=== PATIENT | female | born 1990 | race Caucasian/White ===

== ENCOUNTER 2018-07-24 16:46 | Outpatient (REF) | payer MEDICARE, MEDICAID, SELFPAY ==
--- NOTE | 2018-07-24 09:45 | PAPFT_PTH ---
PATIENT: Ailyn Gaffney LOC: [facility] U#:[id number] AGE/SX: 28/F ROOM: RE07/24/[address]: LILI Hicks : 1990 BED: DIS: 07/24/2018 SPEC #: [id number] RECD: 07/27/18 12:26 STATUS: LEO REQ #: [id number] HEIDI: 07/24/18 09:[address]: Joaquina Nelson DEPT: [facility] Cytology RECD BY: Stacey De La Cruz ENTERED: 07/27/18 12:26 SP TYPE: PAPFT OTHR DR: Sahara Brown MD Tissues: 1 - CX/ENDOCX FOR PAP SMEARS Procedures: PAP THIN PREP/UVM Screening HPV DNA PROBE Comments: [id number] (CHLAMYDIA/GC)
[2018-07-28 14:00] LABS: Chlamydia Result Negative; GC Result Negative; Specimen Description SEE COMMENTS
== END 2018-07-24 17:06 ==
LOC: LBN 16:46
PROVIDERS: PCP Family Medicine; Visit Provider Nurse Practitioner Family
DX: Z11.3 Encounter for screening for infections with a predominantly sexual mode of transmission (principal); Z12.4 Encounter for screening for malignant neoplasm of cervix; Z11.51 Encounter for screening for human papillomavirus (HPV)
CPT/HCPCS: 87491; 87591; 88142; 87624

== ENCOUNTER 2018-08-05 01:00 | Outpatient (CLI) | payer MEDICARE, MEDICAID, SELFPAY ==
[2018-08-05 10:27] LABS: Anion Gap 7.3 mmol/L (3-11); BUN 24 mg/dL (7-18); CO2 28.7 mmol/L (21.0-32.0); Calcium 8.7 mg/dL (8.5-10.1); Chloride 105 mmol/L (98-107); Cholesterol 242 mg/dL (50-200); Glucose 96 mg/dL (70-100); HDL Cholesterol 81 mg/dL (40-60); LDL CHOLESTEROL 134 mg/dL (<100); Potassium 4.8 mmol/L (3.5-5.1); Sodium 141 mmol/L (136-145); TSH 6.21 uIU/mL (0.358-3.74); Triglyceride 94 mg/dL (30-150)
[2018-08-05 10:28] LABS: HCG Quant, Pregnancy < 1 mIU/mL (1-3)
[2018-08-05 10:45] LABS: FREE T4 0.92 ng/dL (0.76-1.46)
[2018-08-06 10:41] LABS: Hepatitis C Ab w Rflx HCV PCR Negative (NEGAT)
[2018-08-06 10:51] LABS: HIV-1/2 Ag & Ab Screen Negative (NEGAT)
[2018-08-06 11:36] LABS: Syphilis Serology (RPR) Negative (Negative)
== END 2018-08-05 01:20 ==
PROVIDERS: PCP Family Medicine; Visit Provider Nurse Practitioner Family
DX: E78.5 Hyperlipidemia, unspecified (principal); Z11.3 Encounter for screening for infections with a predominantly sexual mode of transmission; Z32.01 Encounter for pregnancy test, result positive; E03.9 Hypothyroidism, unspecified; E11.9 Type 2 diabetes mellitus without complications; Z34.90 Encounter for supervision of normal pregnancy, unspecified, unspecified trimester; Z11.4 Encounter for screening for human immunodeficiency virus [HIV]; Z11.59 Encounter for screening for other viral diseases
CPT/HCPCS: 36415; 80048; 80061; 83721; 86803; 87389; 84439; 84443; 84702; 86592

== ENCOUNTER 2018-10-22 10:27 | Outpatient (CLI) | payer MEDICARE, MEDICAID, SELFPAY ==
[2018-10-22 13:02] LABS: TSH 4.26 uIU/mL (0.358-3.74)
== END 2018-10-22 10:47 ==
PROVIDERS: Nurse Practitioner Family; PCP Family Medicine; Visit Provider Family Medicine
DX: E03.9 Hypothyroidism, unspecified (principal)
CPT/HCPCS: 36415; 84439; 84443

== ENCOUNTER 2019-03-24 10:33 | Outpatient (CLI) | payer MEDICARE, MEDICAID, SELFPAY ==
[2019-03-24 13:11] LABS: ALT 19 U/L (14-59); AST 20 U/L (15-37); Albumin 3.9 g/dL (3.4-5.0); Alkaline Phosphatase 49 U/L (46-116); Anion Gap 9.1 mmol/L (3-11); BUN 17 mg/dL (7-18); Bilirubin, Total 0.4 mg/dL (0.2-1.0); CO2 26.9 mmol/L (21.0-32.0); CREATININE 0.68 mg/dL (0.55-1.02); Calcium 9.3 mg/dL (8.5-10.1); Chloride 103 mmol/L (98-107); Glucose 93 mg/dL (70-100); Sodium 139 mmol/L (136-145); TSH 2.54 uIU/mL (0.36-3.74); Total Protein 7.2 g/dL (6.4-8.2)
== END 2019-03-24 10:53 ==
PROVIDERS: PCP Family Medicine; Visit Provider Family Medicine
DX: E03.9 Hypothyroidism, unspecified (principal); K59.00 Constipation, unspecified
CPT/HCPCS: 36415; 80053; 84132; 84443

== ENCOUNTER 2019-03-24 16:11 | Outpatient (CLI) | payer MEDICARE, MEDICAID, SELFPAY ==
[2019-03-24 17:12] LABS: Potassium 4.3 mmol/L (3.5-5.1)
== END 2019-03-24 16:31 ==
PROVIDERS: PCP Family Medicine; Visit Provider Family Medicine
DX: E87.5 Hyperkalemia (principal)
CPT/HCPCS: 84132

== ENCOUNTER 2020-05-07 21:24 | Emergency (ER) | payer MEDICARE, MEDICAID, SELFPAY ==
[2020-05-07 21:31] VITALS: BP 160/94; PULSE 116; RESP 20; TEMP 36.4; O2SAT 94
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
[2020-05-07] MEDS: Ondansetron O.D.T. 4 MG TABEF PO (21:57)
[2020-05-07] MEDS: Azithromycin 250 MG TAB 1000 MG PO (23:41)
[2020-05-07] MEDS: cefTRIAXone 250 MG VIAL IM (23:41)
[2020-05-07] MEDS: metroNIDAZOLE 500 MG TAB 2000 MG PO (23:42)
[2020-05-07 23:48] VITALS: BP 124/76; PULSE 103; RESP 16; O2SAT 96
--- NOTE | 2020-05-07 23:52 | NUR.NOTE ---
Nursing Note: SENT REFERAL TO CM TO FOLLOW UP AND SEE IF SHE NEEDS ANY OTHER SUPPORT 05/07/20
== END 2020-05-08 00:20 | disposition home or self-care (01) ==
PROVIDERS: Emergency Provider Student in an Organized Health Care Education/Training Program; PCP Family Medicine
DX: T76.21XA Adult sexual abuse, suspected, initial encounter (principal)
CPT/HCPCS: 96372; 99285; 99284; J0696

== ENCOUNTER 2020-05-08 17:49 | Emergency (ER) | payer MEDICARE, MEDICAID, SELFPAY ==
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
[2020-05-08] MEDS: Ondansetron O.D.T. 4 MG TABEF PO (18:08)
--- NOTE | 2020-05-08 19:01 | NUR.NOTE ---
checked on pt, offered and given water
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
== END 2020-05-08 20:50 | disposition home or self-care (01) ==
PROVIDERS: Emergency Provider Physician Assistant; PCP Family Medicine
DX: T74.21XA Adult sexual abuse, confirmed, initial encounter (principal); F41.1 Generalized anxiety disorder
CPT/HCPCS: 99285; 99283

== ENCOUNTER 2020-11-12 19:27 | Emergency (ER) | payer MEDICAID, SELFPAY ==
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
[2020-11-12] MEDS: LORazepam 1 MG TAB 2 MG PO (19:50)
[2020-11-12] MEDS: Haloperidol 5 MG TAB PO (19:50)
--- NOTE | 2020-11-12 20:26 | PDOC.CMSAFED ---
- If Service Date Differs Date of service: 11/12/20 Time of Service: 20:26 Care Management Safety Plan Status: Voluntary Chief Complaint: Ailyn is a 30 year old female with a history of anxiety, depression, anorexia nervosa, and BPD. She is brought to the ED by a friend. Upon her arrival in the ED, she reportedly was screaming and banging her head on the wall while making suicidal statements. CM will respond to ED to assess patient after patient has been medically cleared and assessed by screener. If screener deems patient meets criteria for psychiatric stabilization CM will facilitate interdepartmental huddle with [facility] screener for safety planning considerations and meet with patient to review [facility] policy and safety plan, establish individual wishes for treatment and maintain patient rights. In the interim; please note safety plan below to guide patient care while awaiting further assessment in the ED. SAFETY PLAN: 1. Will remain on suicide precautions and in paper clothes. 2. Will remain in room under direct supervision of one-on-one staff at all times provided by [employer], NELSY, DIRECTOR OF SAFETY AND SECURITY interior surface insulation worker. 3. May have paper cups, plates, finger foods as well as a cardboard spoon with which to eat meals. 4. Follow [facility] Management of the Admitted Behavioral Health Patient policy. 5. Comfort bath system only. 6. No personal belongings 7. No visitors. 8. Activities: None at this time. 8. No telephone privileges at this time. 9. Due to VOLUNTARY status, if patient wishes to leave [facility], staff will contact the [facility] Watch Parts Inspector ([phone]) and On-Call Engineering Programmer ([phone]) as soon as possible. In the event of elopement, notify [facility] Police ([phone]). If deemed appropriate for inpatient psychiatric care, safety plan will be established with patient, and care team, to adhere to patient goals, identify restrictions based on behavioral status, address nutrition, and determine allowed personal belongings, tools for hygiene and personal care. As well plan will determine level of activity including ambulation, level of supervision, visitors, and determine privileges based on level of acuity, behaviors and level of engagement by patient.
[2020-11-12 20:34] LABS: Abs Immature Grans 0.01 10^3/uL (0.0-0.06); Absolute Basophil Count 0.04 10^3/uL (0.0-0.2); Absolute Eosinophil Count 0.02 10^3/uL (0.0-0.7); Absolute Lymphocyte Count 2.18 10^3/uL (1.2-3.4); Absolute Monocyte Count 0.36 10^3/uL (0.1-0.8); Absolute Neutrophil Count 6.08 10^3/uL (1.2-6.7); Basophils % 0.5; Eosinophils % 0.2; HCT 46.1 % (36.0-46.0); HGB 15.8 g/dL (11.2-15.7); Immature Grans % 0.1; Lymphocytes % 25.1; MCH 32.9 pg (27.0-33.0); MCHC 34.3 % (32.0-36.0); MPV 9.4 fL (8.0-11.0); Monocytes % 4.1; Nucleated RBC 0 %; Platelet Count 227 10^3/uL (130-400); RDW 11.8 % (11.7-14.6); RDW-SD 41.4 fL; WBC 8.69 10^3/uL (4.4-10.8)
[2020-11-12 20:46] LABS: Bilirubin Negative (Negative); Blood Negative (Negative); Clarity Clear (Clear); Glucose Negative (Negative); Ketones Negative (Negative); Leukocyte Esterase Negative (Negative); Nitrite Negative (Negative); Specific Gravity 1.015 (1.005-1.025); Urobilinogen 0.2 EU/dL (Up TO 0.2)
[2020-11-12 20:54] LABS: *AMPHETAMINES SCREEN URINE Negative (Negative); *BARBITURATES SCREEN URINE Negative (Negative); *BENZODIAZEPINES SCREEN URINE Negative (Negative); Cannabinoids THC Negative (Negative); Cocaine Screen,Urine Negative (Negative); METHADONE URINE SCREEN Negative (Negative); OPIATES URINE SCREEN Negative (Negative)
[2020-11-12 20:55] LABS: Tricyclic Antidepressants Negative (Negative)
[2020-11-12 20:56] LABS: ALT 38 U/L (14-59); AST 35 U/L (15-37); Albumin 4.2 g/dL (3.4-5.0); Alkaline Phosphatase 91 U/L (46-116); Anion Gap 9.9 mmol/L (3-11); BUN 16 mg/dL (7-18); Bilirubin, Total 0.2 mg/dL (0.2-1.0); CO2 28.1 mmol/L (21.0-32.0); CREATININE 0.9 mg/dL (0.55-1.02); Calcium 8.8 mg/dL (8.5-10.1); Chloride 108 mmol/L (98-107); ETHANOL BLOOD 246.6 mg/dL (<3); Glucose 108 mg/dL (74-106); Potassium 4.3 mmol/L (3.5-5.1); Sodium 146 mmol/L (136-145); TSH 14.31 uIU/mL (0.36-3.74)
[2020-11-12 21:04] LABS: Salicylate < 2.8 mg/dL (<2.8)
[2020-11-12 21:14] LABS: Acetaminophen < 2 ug/mL (10-30)
[2020-11-13 01:11] LABS: FREE T4 1.09 ng/dL (0.76-1.46)
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
== END 2020-11-13 06:39 | disposition home or self-care (01) ==
PROVIDERS: Registered Nurse Emergency; Emergency Provider Student in an Organized Health Care Education/Training Program; PCP Family Medicine
DX: F41.8 Other specified anxiety disorders (principal); F10.120 Alcohol abuse with intoxication, uncomplicated; Y90.8 Blood alcohol level of 240 mg/100 ml or more; R45.851 Suicidal ideations; R94.6 Abnormal results of thyroid function studies
CPT/HCPCS: 36415; 80053; 80307; 81025; 99285; 80320; 80329; 81003; 84439; 84443; 85025; 99284

== ENCOUNTER 2021-04-20 19:36 | Inpatient (IN) | payer MEDICARE, MEDICAID, SELFPAY ==
[2021-04-20] VITALS (22 sets, daily range): BP systolic 82–155; BP diastolic 42–99; PULSE 68–115; RESP 13–20; TEMP 36.4; O2SAT 92–97
--- NOTE | 2021-04-20 19:40 | W.ED.GENAD ---
Discharge Plan Disposition Patient Disposition: [facility] INPATIENT Condition: Fair Discharge Details Clinical Impression: Alcohol withdrawal, Major depression, Deliberate self-cutting Primary Care Provider: Unknown,Unknown ED Provider: Janice Vanegas Home Meds and New Rx's Prescriptions: No Action levothyroxine 75 mcg capsule 75 mcg PO DAILY Qty: 90 RF: 3 norgestimate-ethinyl estradiol 0.18/0.215/0.25 mg-35 mcg (28) tablet 1 tab PO DAILY Qty: 84 RF: 4 norgestimate-ethinyl estradiol 0.18/0.215/0.25 mg-35 mcg (28) tablet 1 tab PO DAILY Qty: 28 RF: 2 valacyclovir 1 gram tablet 1,000 mg PO TID PRNRF: 0 sertraline [Zoloft] 100 mg tablet 125 mg PO DAILY RF: 0 Medical Decision Making <Facundo Riggs MD - Last Filed: 04/20/21 22:28> 31-year-old female intoxicated, self harming behaviors with a razor knife cutting her left forearm at home and told EMS she wanted to kill herself. They had to take the razor away from her she was combative and resistant during transfer required from a state police escort. She arrives anxious, combative, intoxicated with superficial lacerations to the volar surface of her left upper extremity. The wound was cleansed and dressed and does not require suture repair. Screening medical examination performed including laboratory analysis and patient given Haldol and Ativan due to agitation, intoxication, self-injurious behavior and noncompliance with staff. Screening labs obtained with CBC of 7, hematocrit 40, platelets 178. She is intoxicated with an alcohol level of 371, chemistries otherwise reassuring. As patient is intoxicated, had self-harm behavior with claims of wanting to harm her self, she will require observation until clinically sober. She has medical records noting previous episodes were once sober she no longer had mood disruption. Will sign the patient out to Dr. Prater pending further observation and management. <Janice Vanegas DO - Last Filed: 04/21/21 13:44> 0800 --Case endorsed to follow-up with mental health once they evaluate patient this morning. Patient is medically cleared and now sober. 0830 --mental health evaluated patient at bedside and she is cleared for discharge to home. Mental health will try to contact grandparents to confirm that they feel comfortable taking patient home. 1100 --[facility] w/ [facility] discussed with patient's grandparents who do not feel comfortable with her going home. They state pt has been depressed and suicidal for quite some time, and has been drinking more alcohol than usual and they are concerned about her welfare and feel that she needs inpatient psychiatric treatment. [place] discussed this with patient over the phone and pt agrees that she needs placement for her depression and suicidal thoughts. Patient is now voluntary and will seek inpatient psychiatric hospitalization. 1200 --patient appears tremulous, anxious, tachycardic. She states she does drink 4 times weekly and this has been an increase in frequency and amount. Concern for possible alcohol withdrawal. Discussed with hospitalist who accepts patient for admission. She will require CPSO at bedside. Will admit to the floor for treatment for alcohol withdrawal while seeking inpatient psychiatric hospitalization. Will order Ativan IV as needed, banana bag. Medical Records Medical records reviewed: Yes I reviewed the patient's medical records. Lab Data Lab results reviewed: Yes I reviewed the patient's lab results. Labs: Laboratory Tests Range/Units 04/20/21 04/20/21 04/20/21 20:35 20:35 20:35 WBC (4.4-10.8) 10^3/uL 7.30 RBC (3.93-5.22) 10^6/uL 4.38 Hgb (11.2-15.7) g/dL 14.0 Hct (36.0-46.0) % 40.6 MCV (80-95) fL 92.7 MCH (27.0-33.0) pg 32.0 MCHC (32.0-36.0) % 34.5 RDW (11.7-14.6) % 12.8 Plt Count (130-400) 10^3/uL 178 MPV (8.0-11.0) fL 9.0 Immature Gran % 0.4 Neutrophils % 56.7 Lymphocytes % 36.4 Monocytes % 5.1 Eosinophils % 1.0 Basophils % 0.4 Nucleated RBC % % 0 Absolute Neutrophils (1.2-6.7) 10^3/uL 4.14 Absolute Lymphocytes (1.2-3.4) 10^3/uL 2.66 Absolute Monocytes (0.1-0.8) 10^3/uL 0.37 Absolute Eosinophils (0.0-0.7) 10^3/uL 0.07 Absolute Basophils (0.0-0.2) 10^3/uL 0.03 Sodium (136-145) mmol/L 144 Potassium (3.5-5.1) mmol/L 3.5 Chloride (98-107) mmol/L 105 Carbon Dioxide (21.0-32.0) mmol/L 29.2 Anion Gap (3-11) mmol/L 9.8 BUN (7-18) mg/dL 17 Creatinine (0.55-1.02) mg/dL 0.7 Estimated GFR/1.73 m2 (mL/min/1.73m2) >= 60.00 Glucose (74-106) mg/dL 87 Calcium (8.5-10.1) mg/dL 8.2 L Total Bilirubin (0.2-1.0) mg/dL 0.2 AST (15-37) U/L 33 ALT (14-59) U/L 26 Alkaline Phosphatase (46-116) U/L 77 Total Protein (6.4-8.2) g/dL 7.7 Albumin (3.4-5.0) g/dL 3.8 TSH (0.36-3.74) uIU/mL 8.59 H Free T4 (0.76-1.46) ng/dL 0.97 Salicylates (<2.8) mg/dL < 2.8 Acetaminophen (10-30) ug/mL < 2 Ethyl Alcohol (<3) mg/dL 371.8 HPI <Facundo Riggs MD - Last Filed: 04/20/21 22:28> General Mode of arrival: ambulatory. Date/Time Provider Initiated Documentation: 04/20/21 20:13. Limitations to Documentation: no limitations. Information obtained by: patient. History of Present Illness 31 year old F presents to the emergency department with the chief complaint of Intoxicated, threatening to kill herself, cut left forearm, described as moderate, and is localized to the left and upper extremity. Patient reports no radiation. and it has been constant. Patient did receive the following treatments prior to arrival, none Related Data Home Medications Medication Instructions Recorded Confirmed levothyroxine 75 mcg capsule 75 mcg PO DAILY #90 cap 06/14/20 04/21/21 norgestimate-ethinyl estradiol 1 tab PO DAILY #84 tab 08/15/20 11/12/20 0.18 mg/0.215mg/0.25mg-35 mcg(28)tablet norgestimate-ethinyl estradiol 1 tab PO DAILY #28 tab 02/02/21 04/21/21 0.18 mg/0.215mg/0.25mg-35 mcg(28)tablet sertraline [Zoloft] 125 mg PO DAILY 04/21/21 04/21/21 valacyclovir 1,000 mg PO TID PRN 04/21/21 04/21/21 Previous Rx's Medication Instructions Recorded levothyroxine 75 mcg capsule 75 mcg PO DAILY #90 cap 06/14/20 norgestimate-ethinyl estradiol 1 tab PO DAILY #84 tab 08/15/20 0.18 mg/0.215mg/0.25mg-35 mcg(28)tablet norgestimate-ethinyl estradiol 1 tab PO DAILY #28 tab 02/02/21 0.18 mg/0.215mg/0.25mg-35 mcg(28)tablet Allergies Allergy/AdvReac Type Severity Reaction Status Date / Time No Known Allergies Allergy Unverified 05/26/20 10:48 General RUDDY: 2 Review of Systems <Facundo Riggs MD - Last Filed: 04/20/21 22:28> Narrative: Unable to obtain due to intoxication PFSH <Facundo Riggs MD - Last Filed: 04/20/21 22:28> Medical History Anorexia nervosa (10/16/12) [facility] Borderline personality disorder (11/17/12) Carpal tunnel syndrome, bilateral Eating disorder Generalized anxiety disorder Hyperlipidemia Hypothyroidism (01/08/13) Major depressive disorder Medication overdose at age 21--partly accidental, partly intentional Vitamin D deficiency Family History Mother Alcohol abuse Substance abuse Depression Father No problems noted. Sister No problems noted. Sister No problems noted. Brother No problems noted. Maternal Grandfather Heart disease Hypertension Diabetes Maternal Grandmother Hypertension Hyperlipidemia Social History Smoking/Tobacco Use Status: Never Second Hand Exposure: Yes Smoking risk assessment performed?: Yes Alcohol Intake: current Alcohol Intake frequency: 3 or more drinks per day Alcohol type: hard liquor Drug use: Never Substance use type: does not use Details: pt denies tobacco or substance abuse. States she drinks daily but denies withdrawal symptoms if she doesnt drink. Is intoxicated upon arrival, poor historian. Caregiver/Support person: No Household members: family Housing: apartment Communication Needs: None Do you need help understanding health information?: Rarely Pets and animals: Yes Sexually active: No Do you think of yourself as: straight/heterosexual Current gender identity: female What is your relationship status?: never How often do you talk on the phone with friends or family?: once per week How often do you get together with friends or relatives?: decline to answer How often do you attend pentecostal or synagogue services?: decline to answer Do you belong to any clubs or organized social groups?: no Panel score (0-1 are the most socially isolated patients): 0 What type of physical activity do you participate in: weight lifting Duration: 60-90 minutes/day Frequency: 5-6 times per week Niru/Congregation: None Special niru needs: No Seatbelt use: always Helmet use: Yes Helmet use: always Drive intox or ride w/intox pole truck driver: No Do you feel safe at home: Yes Do you feel safe in your relationship?: Yes Female Reproductive History Menstrual Age of Menarche: 14 History History 0 Para Hx # Term Pregnancies Multiple births Hx # Pregnancies Ectopic pregnancies AB induced Hx Number of Living Children AB spontaneous Exam <Facundo Riggs MD - Last Filed: 04/20/21 22:28> Narrative Exam Narrative: GEN: awake, alert, oriented 3. Pleasant, well groomed, interactive. HEAD: Normocephalic, atraumatic ENT: Mucous membranes moist, oropharynx unremarkable, External ear exam unremarkable EYES: PERRL, EOMI NECK: Full ROM, no THIERNO, no menigismus CHEST/RESP: Nontender, clear to auscultation bilateral, no wheeze/rhonchi/rales CARDIOVASCULAR: RRR, no murmur, rub kalyani. 2+ Rad pulse bilateral ABDOMEN: Soft, nontender, no mass. +Bowel sounds EXT: Full ROM, no edema, left volar forearm superficial lacerations that do not penetrate through the dermis. Neuro: Grossly normal neurologic exam, conversant, interactive. Psych: Speech fluent, thoughts congruent, affect normal Sign Out <Facundo Riggs MD - Last Filed: 04/20/21 22:28> Sign Out Data: Sign Out Comment: Intoxicated with self harming behavior, observe and re-evaluate once sober. S/P Ativan and Haldol Last updated by Facundo Riggs MD at 04/20/21 22:30 Sign Out Comment: No issues overnight. Awake and awaiting mental health eval this morning. Last updated by Raul Prater MD at 04/21/21 08:03
[2021-04-20] MEDS: LORazepam 2 MG/ML VIAL IVP (20:43)
[2021-04-20] MEDS: Normal Saline 1,000 ML 1000 ML IV (20:44)
[2021-04-20] MEDS: Haloperidol 5 MG/ML VIAL 4 MG IM/IV (20:44)
[2021-04-20 20:49] LABS: Abs Immature Grans 0.03 10^3/uL (0.0-0.06); Absolute Basophil Count 0.03 10^3/uL (0.0-0.2); Absolute Eosinophil Count 0.07 10^3/uL (0.0-0.7); Absolute Lymphocyte Count 2.66 10^3/uL (1.2-3.4); Absolute Monocyte Count 0.37 10^3/uL (0.1-0.8); Absolute Neutrophil Count 4.14 10^3/uL (1.2-6.7); Basophils % 0.4; HCT 40.6 % (36.0-46.0); Immature Grans % 0.4; Lymphocytes % 36.4; MCHC 34.5 % (32.0-36.0); MCV 92.7 fL (80-95); Monocytes % 5.1; Neutrophils % 56.7; Nucleated RBC 0 %; Platelet Count 178 10^3/uL (130-400); RBC 4.38 10^6/uL (3.93-5.22); RDW 12.8 % (11.7-14.6)
[2021-04-20 21:10] LABS: Salicylate < 2.8 mg/dL (<2.8)
[2021-04-20 21:12] LABS: ALT 26 U/L (14-59); AST 33 U/L (15-37); Albumin 3.8 g/dL (3.4-5.0); Alkaline Phosphatase 77 U/L (46-116); Anion Gap 9.8 mmol/L (3-11); BUN 17 mg/dL (7-18); Bilirubin, Total 0.2 mg/dL (0.2-1.0); CO2 29.2 mmol/L (21.0-32.0); CREATININE 0.7 mg/dL (0.55-1.02); Calcium 8.2 mg/dL (8.5-10.1); Chloride 105 mmol/L (98-107); Glucose 87 mg/dL (74-106); Potassium 3.5 mmol/L (3.5-5.1); Sodium 144 mmol/L (136-145); TSH (W/Ref FT4) 8.59 uIU/mL (0.36-3.74); Total Protein 7.7 g/dL (6.4-8.2)
[2021-04-20 21:17] LABS: Acetaminophen < 2 ug/mL (10-30)
[2021-04-20 21:18] LABS: ETHANOL BLOOD 371.8 mg/dL (<3)
[2021-04-20 21:34] LABS: FREE T4 0.97 ng/dL (0.76-1.46)
--- NOTE | 2021-04-20 23:57 | NUR.NOTE ---
Nursing Note: Patient appears to be trying to wake up. Has opened her eyes, raised her head, but has now put her head back on the pillow. Appears to have gone back to sleep.
[2021-04-21] VITALS (117 sets, daily range): BP systolic 85–150; BP diastolic 48–101; PULSE 49–129; RESP 9–32; TEMP 36.8–37.6; O2SAT 94–98
--- NOTE | 2021-04-21 08:10 | NUR.NOTE ---
Nursing Note: 04/21/21- Pt talking with mental health via tablet.
--- NOTE | 2021-04-21 09:48 | PDOC.MHCN_ITS ---
Date of service: 04/21/21 Time of Service: 08:00 Mental Health Crisis Note Presenting Issue How did you arrive at the ED and why did you come: Client presented to ED via police due to intoxication as well as self-harm. Client is reported to have slit her wrist with a razor blade. Client's grandparents who she resides with called 911 after this incident. Per client's grandfather, client has made numerous suicidal statements and has also been drinking a lot more as well. Precipitating Factors Client denied SI/HI during this assessment Disposition BEHAVIOR: Client presented as engaging and cooperative but manipulative and impulsive as well. Client presented as not forthcoming to this proposal writer. Client also presented with fair thought process but poor insight and judgment. EYE CONTACT: Client maintained good eye contact throughout this assessment MOOD: Client presented with withdrawn and depressed mood AFFECT: Client affect was congruent with her mood APPETITE: Client reported a decrease in appetite. SLEEP(trouble falling/staying asleep: Client reported difficulty falling asleep and stated she has sleeps an average of 4 hours per night Plan Client is currently on voluntary and awaiting placement at [facility] for in-patient psychiatric treatment. This proposal writer was unable to safety plan with client and her grandparents and they stated they don't feel they can keep her safe till she goes for treatment. Client will be reassessed daily by [facility] till she is placed or her presentation changes to allow for an appropriate safety plan so she can return to the community. Client will need to be assessed if she decides to discharge before placement or an appropriate safety plan is made. Referrals will be sent to [facility], , [facility] and [facility]. There are currently no beds available at this time. Signature Clinician's Name/Title: Liyah Camp / Emergency Services Clinician, [facility]
[2021-04-21 10:25] LABS: Bilirubin Negative (Negative); Blood Negative (Negative); Clarity Clear (Clear); Glucose Negative (Negative); Ketones Negative (Negative); Leukocyte Esterase Negative (Negative); Nitrite Negative (Negative); Specific Gravity 1.025 (1.005-1.025); Urobilinogen 0.2 EU/dL (Up TO 0.2)
[2021-04-21 10:36] LABS: *AMPHETAMINES SCREEN URINE Negative (Negative); *BARBITURATES SCREEN URINE Negative (Negative); *BENZODIAZEPINES SCREEN URINE Negative (Negative); Cannabinoids THC Negative (Negative); Cocaine Screen,Urine Negative (Negative); METHADONE URINE SCREEN Negative (Negative); OPIATES URINE SCREEN Negative (Negative)
[2021-04-21 10:40] LABS: Tricyclic Antidepressants Negative (Negative)
[2021-04-21] MEDS: LORazepam 1 MG TAB PO (10:58)
--- NOTE | 2021-04-21 11:53 | NUR.NOTE ---
Nursing Note: 04/21/21 1151 Pt received call from mental health.
[2021-04-21] MEDS: Normal Saline 1,000 ML 1000 ML IV (12:37)
[2021-04-21] MEDS: LORazepam 2 MG/ML VIAL 0.5 MG IVP ×2 (12:48→20:58)
[2021-04-21] MEDS: MAGNESIUM SULFATE 8.12 MEQ, MULTIVITAMIN 10 ML, THIAMINE 100 MG, FOLIC ACID 1 MG in Nor... 168.867 MG IV (13:17)
[2021-04-21 13:34] LABS: Source Nasal/Nares
[2021-04-21] MEDS: PHENobarbital 100 MG in Normal Saline 50 ML IVPB (14:57)
--- NOTE | 2021-04-21 16:10 | HPE_ITS ---
Date of service: 04/21/21 Time of Service: 16:10 Assessment and Plan Assessment and plan (1) Alcohol withdrawal: Start date: 04/21/21 Start time: 16:55 Status: Acute Assessment and plan: Having tremors, drinks daily, ethyl alcohol is 371.8 yesterday, last drink per patient was yesterday, phenobarb initiated Patient also with major depression and self harm, made voluntary by therefore she has a CPSO once medically cleared, will need to be reevlauated for bed placement Qualifiers: Complication of substance-induced condition: with unspecified complication Qualified Code(s): F10.239 - Alcohol dependence with withdrawal, unspecified (2) Depression: Start date: 04/21/21 Start time: 16:57 Status: Chronic Assessment and plan: as above Qualifiers: Depression Type: major depressive disorder Major depression recurrence: recurrent Active/Remission status: currently active Major depression episode severity: severe Psychotic features: without psychotic features Qualified Code(s): F33.2 - Major depressive disorder, recurrent severe without psychotic features (3) Alcohol intoxication: Start date: 04/21/21 Start time: 16:58 Status: Acute Assessment and plan: as above Qualifiers: Complication of substance-induced condition: with unspecified complication Qualified Code(s): F10.929 - Alcohol use, unspecified with intoxication, unspecified (4) Deliberate self-cutting: Start date: 04/21/21 Start time: 16:58 Status: Acute Assessment and plan: Left wrist with superficial cut due to razor from self harm during intoxication discussed with Dr. Carr History of Present Illness History of Present Illness Chief Complaint: Major depression, cutting, etoh w/d Narrative: 31 y.o female with PMH of depression, alcohol intoxication, presented to the ED for self harm she was combative and in restraints initially in the ED. while intoxicated. She had a razor blade and cut her left wrist, superficial lacerations were bandaged. TSH was 8.59 with t free 4 0.97, alcohol level 371.8. She was evaluated by and made voluntary. She was asked to be admitted to co for further management. Upon admission, she started to have w/d sx from alcohol. She is being placed on phenobarbatol scale, telemetry, CPSO. She is having slight tremors. She did tell me she does not want to go to a MH facility. At this time however she is not medically cleared. Once medically cleared she will need to be reevaluated by . Review of Systems All systems reviewed & are unremarkable except as noted in HPI and below PFSH Medical History Anorexia nervosa (10/16/12) [facility] [place] [facility] Borderline personality disorder (11/17/12) Carpal tunnel syndrome, bilateral Eating disorder Generalized anxiety disorder Hyperlipidemia Hypothyroidism (01/08/13) Major depressive disorder Medication overdose at age 21--partly accidental, partly intentional Vitamin D deficiency Family History Mother Alcohol abuse Substance abuse Depression Father No problems noted. Sister No problems noted. Sister No problems noted. Brother No problems noted. Maternal Grandfather Heart disease Hypertension Diabetes Maternal Grandmother Hypertension Hyperlipidemia Social History Smoking/Tobacco Use Status: Never Second Hand Exposure: Yes Smoking risk assessment performed?: Yes Alcohol Intake: current Alcohol Intake frequency: 3 or more drinks per day Alcohol type: hard liquor Drug use: Never Substance use type: does not use Details: pt denies tobacco or substance abuse. States she drinks daily but denies withdrawal symptoms if she doesnt drink. Is intoxicated upon arrival, poor historian. Caregiver/Support person: No Household members: family Housing: apartment Communication Needs: None Do you need help understanding health information?: Rarely Pets and animals: Yes Sexually active: No Do you think of yourself as: straight/heterosexual Current gender identity: female What is your relationship status?: never How often do you talk on the phone with friends or family?: once per week How often do you get together with friends or relatives?: decline to answer How often do you attend synagogue or temple services?: decline to answer Do you belong to any clubs or organized social groups?: no Panel score (0-1 are the most socially isolated patients): 0 What type of physical activity do you participate in: weight lifting Duration: 60-90 minutes/day Frequency: 5-6 times per week Niru/Mormonism: None Special niru needs: No Seatbelt use: always Helmet use: Yes Helmet use: always Drive intox or ride w/intox utility worker driver: No Do you feel safe at home: Yes Do you feel safe in your relationship?: Yes Female Reproductive History Menstrual Age of Menarche: 14 History History 0 Para Hx # Term Pregnancies Multiple births Hx # Pregnancies Ectopic pregnancies AB induced Hx Number of Living Children AB spontaneous Meds Allergies and Home Medications Allergies Allergy/AdvReac Type Severity Reaction Status Date / Time No Known Allergies Allergy Unverified 05/26/20 10:48 Home Medications Medication Instructions Recorded Confirmed Type levothyroxine 75 mcg capsule 75 mcg PO DAILY #90 cap 06/14/20 04/21/21 Rx norgestimate-ethinyl estradiol 1 tab PO DAILY #84 tab 08/15/20 11/12/20 Rx 0.18 mg/0.215mg/0.25mg-35 mcg(28)tablet norgestimate-ethinyl estradiol 1 tab PO DAILY #28 tab 02/02/21 04/21/21 Rx 0.18 mg/0.215mg/0.25mg-35 mcg(28)tablet sertraline [Zoloft] 125 mg PO DAILY 04/21/21 04/21/21 History valacyclovir 1,000 mg PO TID PRN 04/21/21 04/21/21 History Exam Const General: cooperative, comfortable and disheveled Nutritional Appearance: average body habitus Orientation: alert, awake and oriented x3 Eyes Eyelids: eyelids normal Pupils: PERRL EOM: EOM intact bilaterally Neck Neck: normal visual inspection and no JVD Lymphatic: no lymphadenopathy noted Resp Effort & Inspection: normal respiratory effort Auscultation: clear to auscultation bilaterally Cardio Jugular venous pressure: no JVD Rhythm: regular rhythm Heart Sounds: S1 normal GI Auscultation: normal bowel sounds General: No CVA tenderness and deferred Skin General skin exam: scars (to bilateral arms) Wounds: wound noted (left wrist) Neuro General: patient alert, patient awake and patient oriented x3 Cognition: normal cognition Speech: speech normal Gait: normal gait Extrem General: normal to inspection, full ROM and no clubbing, cyanosis or edema Psych Appearance: disheveled Mental Status: mental status grossly abnormal Attitude: cooperative Thought Process: illogical Thought Content: compulsions Insight: poor Judgment: poor Results Labs Result diagrams: 04/20/21 20:35 04/20/21 20:35 Labs: Laboratory Results - last 24 hr 04/20/21 04/20/21 04/20/21 20:35 20:35 20:35 WBC 7.30 RBC 4.38 Hgb 14.0 Hct 40.6 MCV 92.7 MCH 32.0 MCHC 34.5 RDW 12.8 Plt Count 178 MPV 9.0 Immature Gran % 0.4 Neutrophils % 56.7 Lymphocytes % 36.4 Monocytes % 5.1 Eosinophils % 1.0 Basophils % 0.4 Nucleated RBC % 0 Absolute Neutrophils 4.14 Absolute Lymphocytes 2.66 Absolute Monocytes 0.37 Absolute Eosinophils 0.07 Absolute Basophils 0.03 Sodium 144 Potassium 3.5 Chloride 105 Carbon Dioxide 29.2 Anion Gap 9.8 BUN 17 Creatinine 0.7 Estimated GFR/1.73 m2 >= 60.00 Glucose 87 Calcium 8.2 L Total Bilirubin 0.2 AST 33 ALT 26 Alkaline Phosphatase 77 Total Protein 7.7 Albumin 3.8 TSH 8.59 H Free T4 0.97 Urine Color Urine Clarity Urine pH Ur Specific [place] Urine Protein Urine Ketones Urine Blood Urine Nitrite Urine Bilirubin Urine Urobilinogen Ur Leukocyte Esterase Urine Glucose Salicylates < 2.8 Urine Opiates Screen Urine Methadone Screen Acetaminophen < 2 Ur Barbiturates Screen Ur Tricyclics Screen Ur Amphetamines Screen U Benzodiazepines Scrn Urine Cocaine Screen Ur THC Screen Ethyl Alcohol 371.8 COVID-19 Source 04/21/21 04/21/21 04/21/21 10:18 10:18 13:30 WBC RBC Hgb Hct MCV MCH MCHC RDW Plt Count MPV Immature Gran % Neutrophils % Lymphocytes % Monocytes % Eosinophils % Basophils % Nucleated RBC % Absolute Neutrophils Absolute Lymphocytes Absolute Monocytes Absolute Eosinophils Absolute Basophils Sodium Potassium Chloride Carbon Dioxide Anion Gap BUN Creatinine Estimated GFR/1.73 m2 Glucose Calcium Total Bilirubin AST ALT Alkaline Phosphatase Total Protein Albumin TSH Free T4 Urine Color Yellow Urine Clarity Clear Urine pH 6.0 Ur Specific [place] 1.025 Urine Protein Negative Urine Ketones Negative Urine Blood Negative Urine Nitrite Negative Urine Bilirubin Negative Urine Urobilinogen 0.2 Ur Leukocyte Esterase Negative Urine Glucose Negative Salicylates Urine Opiates Screen Negative Urine Methadone Screen Negative Acetaminophen Ur Barbiturates Screen Negative Ur Tricyclics Screen Negative Ur Amphetamines Screen Negative U Benzodiazepines Scrn Negative Urine Cocaine Screen Negative Ur THC Screen Negative Ethyl Alcohol COVID-19 Source Nasal/Nares Last Vital Signs Temp 37.6 C H 04/21/21 14:24 Pulse 89 04/21/21 15:58 Resp 20 04/21/21 15:58 BP 128/82 04/21/21 15:58 Pulse Ox 96 04/21/21 15:58
[2021-04-21 16:38] LABS: COVID-19 PCR Negative (Negative)
--- NOTE | 2021-04-21 17:30 | NUR.NOTE ---
Nursing Note: IV line infiltrated on left arm, NS and phenobarbital running through. Small swelling and bruises noted on the site. Pharmacy contacted, apply moist heat recommended.
--- NOTE | 2021-04-21 19:43 | NUR.NOTE ---
Nursing Note: 1927 DELONTE Monge, brought pt duffle bag to the floor, went through it with DELONTE Johnson, with pt permission to see if she had any books or cell phone. Clothing articles, dental hygiene supplies found. Pt made aware of contents of bag. Bag secured at nurses station with name on it.
[2021-04-21] MEDS: Normal Saline Flush 10 ML SYR IVP (20:59)
[2021-04-21] MEDS: Hyaluronidase 150 UNITS VIAL 25 UNITS IJ (20:59)
--- NOTE | 2021-04-21 22:20 | PDOC.CMPRO ---
- If Service Date Differs Date of service: 04/21/21 Time of Service: 16:00 Care Management Progress Note S/O: Ailyn is a 31 year old woman who presented to the ED last evening accompanied by police for intoxication and laceration of left wrist. Ailyn has a history of depression, suicidal ideation and excessive alcohol use. This morning Ailyn was evaluated by [facility] fabric lay out worker [place] and was agreeable to discharge with a safety plan. After consultation with her grandparents with whom she lives, however, it was determined that she did indeed need psychiatric treatment. Initially, Ailyn agreed and was admitted, awaiting psychiatric placement. During her admission assessment by the hospitalist however, Ailyn indicated that she did not want to go to an inpatient facility. She began to exhibit symptoms of alcohol withdrawal, so a phenobarbital protocol was initiated and she is no longer medically cleared. Ailyn did agree to remain in the hospital tonight to treat her withdrawal symptoms and she will be re-evaluated by [facility] in the morning. This was communicated to by CM. A: Ailyn is a 31 year old woman admitted to [facility] on 04/21/21 with suicidal ideation and alcohol intoxication P:Ailyn is currently being treated for early alcohol withdrawal. It is anticipated that she will be medically cleared in the morning and will be re-evaluated by [facility] crisis screener. - Status Status: Voluntary - Reason for Wait Reason for Wait: Inpatient Admission
--- NOTE | 2021-04-21 22:34 | CMSP_ITS ---
- If Service Date Differs Date of service: 04/21/21 Time of Service: 22:34 Care Management Safety Plan Status: Voluntary - Reason for Wait Reason for Wait: Inpatient Admission VOLUNTARY FOR INPATIENT PSYCHIATRIC STABILIZATION. Patient is appropriate in all interactions since arriving at [facility]; Pt has demonstrated appropriate coping and communication skills, has articulated his or her needs and concerns and is fully engaged during staff interactions. Safety plan has been established with patient, and care team, to adhere to patient goals, identify restrictions based on behavioral status, address nutr ition, and determine allowed personal belongings, tools for hygiene and personal care. Determine level of activity including ambulation, level of supervision, visitors, and determine privileges based on behaviors and level of engagement by pt. SAFETY PLAN: 1. Will remain on suicide precautions. In Paper Clothes 2. Will remain in room under direct supervision of one-on-one staff at all times provided by [employer]; NELSY, CARDIOLOGY SPECIALIST publicity director. 3. May have paper cups, plates, finger foods as well as a cardboard spoon with which to eat meals. 4. Follow [facility] Management of the Admitted Behavioral Health Patient policy. 5. Comfort bath system only. 6. No personal belongings 7. Visitors-No visitors at this time 8. Activities: may have soft items from activity cart, coloring materials and crayons, tv with remote [facility] by [facility] 9. Bathroom privileges 10. Phone: no phone privileges at this time 11. Due to VOLUNTARY status, if patient wishes to leave [facility], staff will contact [facility] Crisis Screener ([phone]) and On-Call Branch Officer ([phone]) as soon as possible. In the event of elopement, notify [facility] Police ([phone]). Patient is currently voluntarily at [facility] and seeking inpatient admission when a bed becomes available. [facility] Frontline Manager Programming will continue seeking placement. Please contact the Master Of Ceremonies Branch Officer ([phone]) and [facility] Manager Programming ([phone]) for any needed changes in the Safety Plan. Safety plan has been provided to interdepartmental care team.
--- NOTE | 2021-04-21 22:34 | PDOC.CMSAFE ---
- If Service Date Differs Date of service: 04/21/21 Time of Service: 22:34 Care Management Safety Plan Status: Voluntary - Reason for Wait Reason for Wait: Inpatient Admission VOLUNTARY FOR INPATIENT PSYCHIATRIC STABILIZATION. Patient is appropriate in all interactions since arriving at [facility]; Pt has demonstrated appropriate coping and communication skills, has articulated his or her needs and concerns and is fully engaged during staff interactions. Safety plan has been established with patient, and care team, to adhere to patient goals, identify restrictions based on behavioral status, address nutrition, and determine allowed personal belongings, tools for hygiene and personal care. Determine level of activity including ambulation, level of supervision, visitors, and determine privileges based on behaviors and level of engagement by pt. SAFETY PLAN: 1. Will remain on suicide precautions. In Paper Clothes 2. Will remain in room under direct supervision of one-on-one staff at all times provided by [employer]; NELSY, IMPACT HAMMER OPERATOR director franchise sales. 3. May have paper cups, plates, finger foods as well as a cardboard spoon with which to eat meals. 4. Follow [facility] Management of the Admitted Behavioral Health Patient policy. 5. Comfort bath system only. 6. No personal belongings 7. Visitors-No visitors at this time 8. Activities: may have soft items from activity cart, coloring materials and crayons, tv with remote held by [employer] 9. Bathroom privileges 10. Phone: no phone privileges at this time 11. Due to VOLUNTARY status, if patient wishes to leave [facility], staff will contact [facility] Crisis Screener ([phone]) and On-Call Executive Legal Secretary ([phone]) as soon as possible. In the event of elopement, notify [facility] Police ([phone]). Patient is currently voluntarily at [facility] and seeking inpatient admission when a bed becomes available. [facility] Frontline Door Paneler will continue seeking placement. Please contact the Aircraft Instrument Mechanic Executive Legal Secretary ([phone]) and [facility] Door Paneler ([phone]) for any needed changes in the Safety Plan. Safety plan has been provided to interdepartmental care team.
[2021-04-22 03:03] VITALS: BP 136/95; PULSE 98; RESP 16; TEMP 36.4; O2SAT 97
[2021-04-22] MEDS: Normal Saline Flush 10 ML SYR IVP (03:51)
[2021-04-22] MEDS: PHENobarbital 130 MG/ML VIAL IVP (03:51)
[2021-04-22 04:11] VITALS: BP 137/88; PULSE 57; RESP 16; O2SAT 97
[2021-04-22] MEDS: Levothyroxine 75 MCG TAB PO (07:06)
[2021-04-22 07:16] VITALS: PULSE 88
[2021-04-22 07:27] VITALS: BP 138/91; PULSE 91; RESP 20; TEMP 37.1; O2SAT 98
[2021-04-22 08:16] VITALS: PULSE 140
[2021-04-22] MEDS: Sertraline 50 MG TAB 125 MG PO (08:29)
[2021-04-22 09:59] LABS: ALT 24 U/L (14-59); AST 32 U/L (15-37); Albumin 3.5 g/dL (3.4-5.0); Alkaline Phosphatase 83 U/L (46-116); Anion Gap 8.8 mmol/L (3-11); BUN 8 mg/dL (7-18); Bilirubin, Direct 0.2 mg/dL (0.0-0.2); Bilirubin, Total 0.7 mg/dL (0.2-1.0); CO2 26.2 mmol/L (21.0-32.0); CREATININE 0.6 mg/dL (0.55-1.02); Calcium 8.6 mg/dL (8.5-10.1); Chloride 103 mmol/L (98-107); Glucose 117 mg/dL (74-106); Potassium 3.5 mmol/L (3.5-5.1); Sodium 138 mmol/L (136-145); Total Protein 7.2 g/dL (6.4-8.2)
[2021-04-22 10:00] LABS: ETHANOL BLOOD < 3.0 mg/dL (<3)
--- NOTE | 2021-04-22 10:09 | CMPROGNOTE_ITS ---
- If Service Date Differs Date of service: 04/22/21 Time of Service: 10:09 Care Management Progress Note S/O: Ailyn will be discharged home with her grandparents after she contracts for safety with [facility]. A: Ailyn is a 31 year old woman admitted to [facility] on 04/21/21 with suicidal ideation and alcohol intoxication P:Ailyn is currently being treated for early alcohol withdrawal. It is anticipated that she will be medically cleared in the morning and will be re- evaluated by [facility] crisis screener. - MH Services (Omit if N/A) Current MH Services: [facility] - Status Status: Voluntary - Reason for Wait Reason for Wait: Inpatient Admission
--- NOTE | 2021-04-22 10:09 | PDOC.CMPRO ---
- If Service Date Differs Date of service: 04/22/21 Time of Service: 10:09 Care Management Progress Note S/O: Ailyn will be discharged home with her grandparents after she contracts for safety with [facility]. A: Ailyn is a 31 year old woman admitted to [facility] on 04/21/21 with suicidal ideation and alcohol intoxication P:Ailyn is currently being treated for early alcohol withdrawal. It is anticipated that she will be medically cleared in the morning and will be re-evaluated by [facility] crisis screener. - MH Services (Omit if N/A) Current MH Services: [facility] - Status Status: Voluntary - Reason for Wait Reason for Wait: Inpatient Admission
--- NOTE | 2021-04-22 10:12 | CMSP_ITS ---
- If Service Date Differs Date of service: 04/22/21 Time of Service: 10:12 Care Management Safety Plan Status: Voluntary - Reason for Wait Reason for Wait: Inpatient Admission VOLUNTARY FOR INPATIENT PSYCHIATRIC STABILIZATION. Patient is appropriate in all interactions since arriving at [facility]; Pt has demonstrated appropriate coping and communication skills, has articulated his or her needs and concerns and is fully engaged during staff interactions. Safety plan has been established with patient, and care team, to adhere to patient goals, identify restrictions based on behavioral status, address nutr ition, and determine allowed personal belongings, tools for hygiene and personal care. Determine level of activity including ambulation, level of supervision, visitors, and determine privileges based on behaviors and level of engagement by pt. SAFETY PLAN: 1. Will remain on suicide precautions. In Paper Clothes 2. Will remain in room under direct supervision of one-on-one staff at all times provided by [employer]; NELSY, HEEL BURNISHER artificial teeth inspector. 3. May have paper cups, plates, finger foods as well as a cardboard spoon with which to eat meals. 4. Follow [facility] Management of the Admitted Behavioral Health Patient policy. 5. Comfort bath system only. 6. No personal belongings 7. Visitors-No visitors at this time 8. Activities: may have soft items from activity cart, coloring materials and crayons, tv with remote [facility] by [facility] 9. Bathroom privileges 10. Phone: no phone privileges at this time 11. Due to VOLUNTARY status, if patient wishes to leave [facility], staff will contact [facility] Crisis Screener ([phone]) and On-Call Special Class Welder ([phone]) as soon as possible. In the event of elopement, notify [facility] Police ([phone]). Patient is currently voluntarily at [facility] and seeking inpatient admission when a bed becomes available. [facility] Frontline Fire Alarm Installer will continue seeking placement. Please contact the Bristle Machine Operator Special Class Welder ([phone]) and [facility] Fire Alarm Installer ([phone]) for any needed changes in the Safety Plan. Safety plan has been provided to interdepartmental care team.
--- NOTE | 2021-04-22 10:12 | PDOC.CMSAFE ---
- If Service Date Differs Date of service: 04/22/21 Time of Service: 10:12 Care Management Safety Plan Status: Voluntary - Reason for Wait Reason for Wait: Inpatient Admission VOLUNTARY FOR INPATIENT PSYCHIATRIC STABILIZATION. Patient is appropriate in all interactions since arriving at [facility]; Pt has demonstrated appropriate coping and communication skills, has articulated his or her needs and concerns and is fully engaged during staff interactions. Safety plan has been established with patient, and care team, to adhere to patient goals, identify restrictions based on behavioral status, address nutrition, and determine allowed personal belongings, tools for hygiene and personal care. Determine level of activity including ambulation, level of supervision, visitors, and determine privileges based on behaviors and level of engagement by pt. SAFETY PLAN: 1. Will remain on suicide precautions. In Paper Clothes 2. Will remain in room under direct supervision of one-on-one staff at all times provided by [employer]; NELSY, PREVENTIVE MAINTENANCE ENGINEER professor of finance. 3. May have paper cups, plates, finger foods as well as a cardboard spoon with which to eat meals. 4. Follow [facility] Management of the Admitted Behavioral Health Patient policy. 5. Comfort bath system only. 6. No personal belongings 7. Visitors-No visitors at this time 8. Activities: may have soft items from activity cart, coloring materials and crayons, tv with remote held by [employer] 9. Bathroom privileges 10. Phone: no phone privileges at this time 11. Due to VOLUNTARY status, if patient wishes to leave [facility], staff will contact [facility] Crisis Screener ([phone]) and On-Call Area Representative ([phone]) as soon as possible. In the event of elopement, notify [facility] Police ([phone]). Patient is currently voluntarily at [facility] and seeking inpatient admission when a bed becomes available. [facility] Frontline Musculoskeletal Physician will continue seeking placement. Please contact the Retail Wireless Associate Area Representative ([phone]) and [facility] Musculoskeletal Physician ([phone]) for any needed changes in the Safety Plan. Safety plan has been provided to interdepartmental care team.
--- NOTE | 2021-04-22 12:26 | PGE_ITS ---
Date of Service Date of service: 04/22/21 Time of Service: : Assessment and Plan Assessment and plan (1) Alcohol withdrawal: Start date: 04/22/21 Start time: 11:20 Status: Resolved Assessment and plan: Feeling anxious otherwise no signs or sx or w/d Medically cleared. Qualifiers: Complication of substance-induced condition: with unspecified complication Qualified Code(s): F10.239 - Alcohol dependence with withdrawal, unspecified (2) Depression: Start date: 04/22/21 Start time: 11:20 Status: Chronic Assessment and plan: Feeling more anxious today. However she does have goals that she is willing to accomplish and wants to do. She is asking for atarax prn for anxiety will order prn. consulted now that she is medically cleared. Qualifiers: Depression Type: major depressive disorder Major depression recurrence: recurrent Active/Remission status: currently active Major depression episode severity: severe Psychotic features: without psychotic features Qualified Code(s): F33.2 - Major depressive disorder, recurrent severe without psychotic features (3) Alcohol intoxication: Start date: 04/22/21 Start time: 11:20 Status: Acute Assessment and plan: as above repeat ethyl alchol less than 3.0 Qualifiers: Complication of substance-induced condition: with unspecified complication Qualified Code(s): F10.929 - Alcohol use, unspecified with intoxication, unspecified (4) Deliberate self-cutting: Start date: 04/22/21 Start time: 11:20 Status: Acute Assessment and plan: Left wrist with superficial cut due to razor from self harm during intoxication discussed with Dr. Carr Subjective Subjective Patient reports: feels better Interval history since last seen: No signs of w/d. She did have extravasation overnight requiring Hyaluronidase. Today she is tear eyed when visiting with her. She feels anxious. Asking for hydroxizine. She states she has taken this in the past and it works well. She has been medically cleared. has been asked to reevaluate. She has goals on her board. She is agreeable to seeing a swimming coach, psychiatrist, amongst other goals. Exam Const General: cooperative, comfortable and disheveled Nutritional Appearance: average body habitus Orientation: alert, awake and oriented x3 Eyes Eyelids: eyelids normal Pupils: PERRL EOM: EOM intact bilaterally Neck Neck: normal visual inspection and no JVD Lymphatic: no lymphadenopathy noted Resp Effort & Inspection: normal respiratory effort Auscultation: clear to auscultation bilaterally Cardio Jugular venous pressure: no JVD Rhythm: regular rhythm Heart Sounds: S1 normal GI Auscultation: normal bowel sounds General: No CVA tenderness and deferred Skin General skin exam: scars (to bilateral arms) Wounds: wound noted (left wrist) Neuro General: patient alert, patient awake and patient oriented x3 Cognition: normal cognition Speech: speech normal Gait: normal gait Extrem General: normal to inspection, full ROM and no clubbing, cyanosis or edema Psych Appearance: disheveled Mental Status: mental status grossly abnormal Attitude: cooperative Thought Process: illogical Thought Content: compulsions Insight: poor Judgment: poor Objective Last Vital Signs Temp 37.1 C 04/22/21 07:27 Pulse 91 H 04/22/21 07:27 Resp 20 04/22/21 07:27 BP 138/91 H 04/22/21 07:27 Pulse Ox 98 04/22/21 07:27 Laboratory Results - last 24 hr 04/21/21 04/22/21 04/22/21 13:30 09:25 09:25 Sodium 138 Potassium 3.5 Chloride 103 Carbon Dioxide 26.2 Anion Gap 8.8 BUN 8 D Creatinine 0.6 Estimated GFR/1.73 m2 >= 60.00 Glucose 117 H Calcium 8.6 Magnesium 2.0 Total Bilirubin 0.7 Conjugated Bilirubin 0.2 AST 32 ALT 24 Alkaline Phosphatase 83 Total Protein 7.2 Albumin 3.5 Ethyl Alcohol < 3.0 COVID-19 Source Nasal/Nares SARS-CoV-2 (PCR) Negative
--- NOTE | 2021-04-22 13:47 | W.PM.DS.N ---
Date of service: 04/22/21 Time of Service: 13:47 DS: Diagnosis Discharge Diagnosis (1) Alcohol withdrawal: Start date: 04/22/21 Start time: 13:47 Status: Resolved Asessment and Plan: Feeling anxious otherwise no signs or sx or w/d Medically cleared. (2) Depression: Start date: 04/22/21 Start time: 13:47 Status: Chronic Asessment and Plan: Feeling more anxious today. However she does have goals that she is willing to accomplish and wants to do. She is asking for atarax prn for anxiety will order prn. consulted now that she is medically cleared. She has been cleared to go home by and she is going to sign an agreement with CM she has identified several strategies and coping mechanisms that she wants to try she is taking ownership going home. Will prescribe atarax for anxiety. Recommend psychiatry as outpatient as well. (3) Alcohol intoxication: Start date: 04/22/21 Start time: 13:50 Status: Acute Asessment and Plan: as above repeat ethyl alchol less than 3.0 (4) Deliberate self-cutting: Start date: 04/22/21 Start time: 13:51 Status: Acute Asessment and Plan: Left wrist with superficial cut due to razor from self harm during intoxication Discharge Plan Disposition Patient Disposition: HOME Condition: Improving Discharge Details Reason For Visit: Alcohol withdrawal, Major depression, Self cutting Admit Date/Time: 04/21/21 12:26 Admit Provider: Nolberto Carr Attending Provider: Nolberto Carr Primary Care Provider: Unknown,Unknown Hospital Course Hospital Course: 31 y.o female with PMH of depression, alcohol intoxication, presented to the ED for self harm she was combative and in restraints initially in the ED. while intoxicated. She had a razor blade and cut her left wrist, superficial lacerations were bandaged. TSH was 8.59 with t free 4 0.97, alcohol level 371.8. She was evaluated by and made voluntary. She was asked to be admitted to ma for further management. Upon admission, she started to have w/d sx from alcohol. She was placed on phenobarbatol scale, telemetry, CPSO. She was having slight tremors. She did tell me she does not want to go to a facility. Today she is doing well no signs or sx of w/d. evaluated her and she has been cleared for discharge. She has taken ownership of her self and has goals. Her grandparents have agreed to let her comeback as long as she signs an agreement letter stating she will follow recommendations on agreement. Recommend she follow up with psychiatry in addition to counselor. Will prescribe atarax prn for anxiety. Home Meds and New Rx's Prescriptions: New hydroxyzine HCl 50 mg Tablet 50 mg PO BID PRN PRNQty: 60 RF: 1 Continued levothyroxine 75 mcg capsule 75 mcg PO DAILY Qty: 90 RF: 3 norgestimate-ethinyl estradiol 0.18/0.215/0.25 mg-35 mcg (28) tablet 1 tab PO DAILY Qty: 84 RF: 4 norgestimate-ethinyl estradiol 0.18/0.215/0.25 mg-35 mcg (28) tablet 1 tab PO DAILY Qty: 28 RF: 2 valacyclovir 1 gram tablet 1,000 mg PO TID PRNRF: 0 sertraline [Zoloft] 100 mg tablet 125 mg PO DAILY RF: 0 Discharge Instructions Instructions: Depression (DC), Abuse of Alcohol (DC), Anxiety (DC) Additional Instructions: Take hydroxozine as needed. Recommend finding a psychiatrist in addition to counselor Work on different coping skills besides drinking and cutting Stand Alone Forms: Nursing Discharge Form Activity:: Activity as Tolerated Equipment/Supplies:: No Equipment Needed Diet:: As Tolerated Discharge Orders Discharge Orders: Discharge Order (Routine); Ordered 04/22/21 Ordered By: Marina Lucas DS: Summary Time Spent with Patient providing and/or coordinating discharge services: Less than 30 minutes Status at Discharge Functional status at discharge: independent ambulation Overall status at discharge: patient is back to baseline Mental Status: No mental status grossly normal Speech and Movement: speech and movement normal Mood: congruent mood Affect: normal affect Exam Const General: cooperative, comfortable and disheveled Nutritional Appearance: average body habitus Orientation: alert, awake and oriented x3 Eyes Eyelids: eyelids normal Pupils: PERRL EOM: EOM intact bilaterally Neck Neck: normal visual inspection and no JVD Lymphatic: no lymphadenopathy noted Resp Effort & Inspection: normal respiratory effort Auscultation: clear to auscultation bilaterally Cardio Jugular venous pressure: no JVD Rhythm: regular rhythm Heart Sounds: S1 normal GI Auscultation: normal bowel sounds General: No CVA tenderness and deferred Skin General skin exam: scars (to bilateral arms) Wounds: wound noted (left wrist) Neuro General: patient alert, patient awake and patient oriented x3 Cognition: normal cognition Speech: speech normal Gait: normal gait Extrem General: normal to inspection, full ROM and no clubbing, cyanosis or edema Psych Appearance: grossly normal Mental Status: mental status grossly abnormal Speech and Movement: speech and movement normal Mood: congruent mood Affect: normal affect Attitude: cooperative Thought Process: normal Thought Content: normal Insight: fair Judgment: fair DS: Data Vitals/I&O Vitals and I&O: Vital Signs Temperature 37.1 C 04/22/21 07:27 Temperature Source Tympanic 04/22/21 07:27 Pulse 91 H 04/22/21 07:27 Pulse Rhythm Regular 04/22/21 13:02 Pulse 103 H 04/21/21 14:15 Respiratory Rate 20 04/22/21 07:27 Respiratory Effort Non-Labored 04/22/21 13:02 Respiratory Depth Normal 04/22/21 13:02 Respiratory Pattern Normal 04/22/21 13:02 Blood Pressure 138/91 H 04/22/21 07:27 Blood Pressure Mean 79 04/21/21 13:31 Blood Pressure Position Supine 04/21/21 03:00 Pulse Oximetry 98 04/22/21 07:27 Oxygen Delivery Method Room Air 04/22/21 07:27 Oxygen Flow Rate 0 04/22/21 07:27 Pain Level 0 04/21/21 23:32 Comment 04/21/21 17:10 Intake & Output 04/21/21 04/22/21 04/22/21 23:59 11:59 23:59 Intake Total 1812.2142 / 2172.2142 250 / 250 Output Total 450 / 450 1750 / 1750 Balance 1362.2142 / 1722.2142 -1500 / -1500 Weight 58.967 kg Intake: IV 1332.2142 / 1332.2141 10 Oral 480 / 840 240 / 240 Output: Urine 450 / 450 1750 / 1750 Other: Urine Color Dark Dorys Yellow Urine Appearance Clear Clear Clear Urine Odor Strong Normal Comment patient is independent to the rest room Voiding Methods Toilet Toilet Data Completed and Pending Labs on day of discharge: Labs from last 24 hours 04/22/21 04/22/21 04/21/21 09:25 09:25 13:30 Sodium 138 Potassium 3.5 Chloride 103 Carbon Dioxide 26.2 Anion Gap 8.8 BUN 8 D Creatinine 0.6 Estimated GFR/1.73 m2 >= 60.00 Glucose 117 H Calcium 8.6 Magnesium 2.0 Total Bilirubin 0.7 Conjugated Bilirubin 0.2 AST 32 ALT 24 Alkaline Phosphatase 83 Total Protein 7.2 Albumin 3.5 Ethyl Alcohol < 3.0 SARS-CoV-2 (PCR) Negative [facility] Medical History Anorexia nervosa (10/16/12) Inpatient treatment at [facility] in [place] and [facility] from 2004 to 2009 Borderline personality disorder (11/17/12) Carpal tunnel syndrome, bilateral Eating disorder Generalized anxiety disorder Hyperlipidemia Hypothyroidism (01/08/13) Major depressive disorder Medication overdose at age 21--partly accidental, partly intentional Vitamin D deficiency Family History Mother Alcohol abuse Substance abuse Depression Father No problems noted. Sister No problems noted. Sister No problems noted. Brother No problems noted. Maternal Grandfather Heart disease Hypertension Diabetes Maternal Grandmother Hypertension Hyperlipidemia Social History Smoking/Tobacco Use Status: Never Second Hand Exposure: Yes Smoking risk assessment performed?: Yes Alcohol Intake: current Alcohol Intake frequency: 3 or more drinks per day Alcohol type: hard liquor Drug use: Never Substance use type: does not use Details: pt denies tobacco or substance abuse. States she drinks daily but denies withdrawal symptoms if she doesnt drink. Is intoxicated upon arrival, poor historian. Caregiver/Support person: No Household members: family Housing: apartment Communication Needs: None Do you need help understanding health information?: Rarely Pets and animals: Yes Sexually active: No Do you think of yourself as: straight/heterosexual Current gender identity: female What is your relationship status?: never How often do you talk on the phone with friends or family?: once per week How often do you get together with friends or relatives?: decline to answer How often do you attend adventist or religion services?: decline to answer Do you belong to any clubs or organized social groups?: no Panel score (0-1 are the most socially isolated patients): 0 What type of physical activity do you participate in: weight lifting Duration: 60-90 minutes/day Frequency: 5-6 times per week Niru/Latter Day: None Special niru needs: No Seatbelt use: always Helmet use: Yes Helmet use: always Drive intox or ride w/intox pile driver engineer: No Do you feel safe at home: Yes Do you feel safe in your relationship?: Yes Female Reproductive History Menstrual Age of Menarche: 14 History History 0 Para Hx # Term Pregnancies Multiple births Hx # Pregnancies Ectopic pregnancies AB induced Hx Number of Living Children AB spontaneous
[2021-04-22] MEDS: hydrOXYzine HCL 50 MG TAB PO (14:18)
--- NOTE | 2021-04-22 14:32 | CMDISCH_ITS ---
- If Service Date Differs Date of service: 04/22/21 Time of Service: 14:32 Care Management Discharge Reason for Hospitalization: Alcohol Intoxication and SI Discharge Plan: Ailyn will be discharged home on a Safety Plan created with mental health [facility] crisis screener. It includes phone follow up, a public speaking coach (contact already made with Natacha) weekly follow up visits with her therapist, a referral to join [facility] DBT group and an agreement to contact [facility] if feeling anxious or suicidal. She will return to her grandparents home and transport with them via private vehicle. Patient/Family Education Needs: Elements of the Safety plan reviewed with both Ailyn (in person) and her grandfather via phone by CM.Ailyn signed the plan and will share it with her grandparents. - MH Services (Omit if N/A) Current MH Services: [facility] - Disposition Disposition: Other
--- NOTE | 2021-04-22 14:32 | PDOC.CMDIS ---
- If Service Date Differs Date of service: 04/22/21 Time of Service: 14:32 Care Management Discharge Reason for Hospitalization: Alcohol Intoxication and SI Discharge Plan: Ailyn will be discharged home on a Safety Plan created with mental health [facility] crisis screener. It includes phone follow up, a acetone recovery worker (contact already made with Natacha) weekly follow up visits with her therapist, a referral to join [facility] DBT group and an agreement to contact [facility] if feeling anxious or suicidal. She will return to her grandparents home and transport with them via private vehicle. Patient/Family Education Needs: Elements of the Safety plan reviewed with both Ailyn (in person) and her grandfather via phone by CM.Ailyn signed the plan and will share it with her grandparents. - MH Services (Omit if N/A) Current MH Services: [facility] - Disposition Disposition: Other
--- NOTE | 2021-04-22 15:34 | PDOC.MHCN ---
Date of service: 04/22/21 Time of Service: 15:36 Mental Health Crisis Note Presenting Issue How did you arrive at the ED and why did you come: Patient has been waiting in the hospital for in patient placement after being brought in a few days ago for alcohol intoxication. Precipitating Factors Client is not having any suicidal ideation in today's assessment, she presents as cooperative with anxieyt and tearfulness. Her mood is depressed and her affect is flat. She speaks clearly and answers questions coherently. Disposition BEHAVIOR: cooperative with some tearfulness EYE CONTACT: good eye contact MOOD: anxious AFFECT: congruent with mood APPETITE: she has been eating less SLEEP(trouble falling/staying asleep: has trouble falling asleep and staying asleep. Plan Patient is to be discharged to grandparents care on a safety plan laid out by the home care liaison. Ailyn agrees that she will try deep breathing and try to take breaks when she gets stressed. She will see a recovery operator helper for further help with her alcohol consumption . She will call [facility] if she has any anxety and for support. [facility] clinicians will outreach to her on Friday to set up a plan for further check ins and support. Signature Clinician's Name/Title: Celine Goldberg, [facility], [facility] Emergency Services After Hours Clinician
== END 2021-04-22 15:01 | disposition home or self-care (01) | DRG 897 ==
LOC: ER 04-21 13:57 → MS 04-21 14:11
PROVIDERS: Emergency Medicine; Nurse Practitioner Family; Admitting Provider Family Medicine; Emergency Provider Physician Assistant; Visit Provider Family Medicine
DX: F10.229 Alcohol dependence with intoxication, unspecified (principal); F33.2 Major depressive disorder, recurrent severe without psychotic features; F50.00 Anorexia nervosa, unspecified; F10.239 Alcohol dependence with withdrawal, unspecified; Z20.822 Contact with and (suspected) exposure to COVID-19; T14.91XA Suicide attempt, initial encounter; S51.812A Laceration without foreign body of left forearm, initial encounter; X78.8XXA Intentional self-harm by other sharp object, initial encounter; Y90.8 Blood alcohol level of 240 mg/100 ml or more; F60.3 Borderline personality disorder; G56.03 Carpal tunnel syndrome, bilateral upper limbs; F41.1 Generalized anxiety disorder; E03.9 Hypothyroidism, unspecified; E55.9 Vitamin D deficiency, unspecified; Z91.5 Personal history of self-harm; Z68.21 Body mass index [BMI] 21.0-21.9, adult
CPT/HCPCS: 36415; 80048; 80053; 80076; 80307; 87635; 96361; 96365; 96366; 96375; 99285; 80320; 80329; 81003; 83735; 84439; 84443; 85025; 99223; 99238; J1630; J2060; J2560; J3470; J3490

== ENCOUNTER 2021-05-05 14:58 | Inpatient (IN) | payer MEDICARE, MEDICAID, SELFPAY ==
[2021-05-05] VITALS (38 sets, daily range): BP systolic 94–121; BP diastolic 56–78; PULSE 61–113; RESP 13–20; TEMP 36.7; O2SAT 92–98
[2021-05-05 18:12] LABS: Abs Immature Grans 0.02 10^3/uL (0.0-0.06); Absolute Basophil Count 0.04 10^3/uL (0.0-0.2); Absolute Eosinophil Count 0.03 10^3/uL (0.0-0.7); Absolute Lymphocyte Count 2.01 10^3/uL (1.2-3.4); Absolute Monocyte Count 0.36 10^3/uL (0.1-0.8); Absolute Neutrophil Count 5.06 10^3/uL (1.2-6.7); Basophils % 0.5; Eosinophils % 0.4; HCT 43.4 % (36.0-46.0); HGB 14.9 g/dL (11.2-15.7); Immature Grans % 0.3; Lymphocytes % 26.7; MCH 32.1 pg (27.0-33.0); MCHC 34.3 % (32.0-36.0); MCV 93.5 fL (80-95); MPV 8.9 fL (8.0-11.0); Monocytes % 4.8; Neutrophils % 67.3; Nucleated RBC 0 %; Platelet Count 195 10^3/uL (130-400); RBC 4.64 10^6/uL (3.93-5.22); RDW 12.2 % (11.7-14.6); RDW-SD 42.2 fL; WBC 7.52 10^3/uL (4.4-10.8)
--- NOTE | 2021-05-05 18:24 | W.ED.GENAD ---
Discharge Plan Disposition Patient Disposition: [facility] INPATIENT Condition: Stable Discharge Details Chief Complaint: PsychEval Clinical Impression: Depression with suicidal ideation, Alcohol intoxication Primary Care Provider: Unknown,Unknown ED Provider: Hamlet Bai Home Meds and New Rx's Prescriptions: No Action levothyroxine 75 mcg capsule 75 mcg PO DAILY Qty: 90 RF: 3 norgestimate-ethinyl estradiol 0.18/0.215/0.25 mg-35 mcg (28) tablet 1 tab PO DAILY Qty: 84 RF: 4 norgestimate-ethinyl estradiol 0.18/0.215/0.25 mg-35 mcg (28) tablet 1 tab PO DAILY Qty: 28 RF: 2 sertraline [Zoloft] 100 mg tablet 125 mg PO DAILY RF: 0 hydroxyzine HCl 50 mg Tablet 50 mg PO BID PRN PRNQty: 60 RF: 1 Medical Decision Making 31-year-old female presents to the ER requesting inpatient hospitalization for detox of alcohol and depression with SI. Patient has no acute medical concerns or complaints. Denies any active suicidal plan or wish to act upon thoughts of harming herself. Given her presentation, will obtain medical screening labs for psychiatric evaluation, request a mental health evaluation, initiate a safety plan, and request a CPSO. I reviewed her most recent ER visit and subsequent hospitalization, initially given benzodiazepines here in the ER but subsequently changed over to phenobarbital for concern of more severe withdrawal. I reached out to our hospitalist team as the patient will likely require admission she discussed the use of benzodiazepines versus phenobarbital. Patient does not show any severe signs of withdrawal now but is likely intoxicated. Given her recent admission and need for phenobarbital, after using shared decision-making with Dr. Hussein, plan is to initiate phenobarbital withdrawal protocol. Laboratory values reveal a white blood cell count of 7.52 hemoglobin 14.9 hematocrit 43.4 platelet count 195. Sodium 148 potassium 3.6 creatinine 0.8 with a GFR greater than 60. Glucose 85. LFTs unremarkable. TSH 4.01 Alcohol level of 254.7 urinalysis and tox screen pending. Covid test negative Case discussed again with Dr. Hussein, patient will be admitted for depression, SI, alcohol intoxication-withdrawal, once sober will need mental health evaluation. Patient is currently requesting voluntary placement for dual diagnosis of depression with SI and alcohol abuse. Medical Records Medical records reviewed: Yes I reviewed the patient's medical records. Lab Data Lab results reviewed: Yes I reviewed the patient's lab results. Labs: Laboratory Tests Range/Units 05/05/21 05/05/21 05/05/21 17:57 17:57 18:00 WBC (4.4-10.8) 10^3/uL 7.52 RBC (3.93-5.22) 10^6/uL 4.64 Hgb (11.2-15.7) g/dL 14.9 Hct (36.0-46.0) % 43.4 MCV (80-95) fL 93.5 MCH (27.0-33.0) pg 32.1 MCHC (32.0-36.0) % 34.3 RDW (11.7-14.6) % 12.2 Plt Count (130-400) 10^3/uL 195 MPV (8.0-11.0) fL 8.9 Immature Gran % 0.3 Neutrophils % 67.3 Lymphocytes % 26.7 Monocytes % 4.8 Eosinophils % 0.4 Basophils % 0.5 Nucleated RBC % % 0 Absolute Neutrophils (1.2-6.7) 10^3/uL 5.06 Absolute Lymphocytes (1.2-3.4) 10^3/uL 2.01 Absolute Monocytes (0.1-0.8) 10^3/uL 0.36 Absolute Eosinophils (0.0-0.7) 10^3/uL 0.03 Absolute Basophils (0.0-0.2) 10^3/uL 0.04 Sodium (136-145) mmol/L 148 H Potassium (3.5-5.1) mmol/L 3.6 Chloride (98-107) mmol/L 110 H Carbon Dioxide (21.0-32.0) mmol/L 27.2 Anion Gap (3-11) mmol/L 10.8 BUN (7-18) mg/dL 15 Creatinine (0.55-1.02) mg/dL 0.8 Estimated GFR/1.73 m2 (mL/min/1.73m2) >= 60.00 Glucose (74-106) mg/dL 85 Calcium (8.5-10.1) mg/dL 8.5 Total Bilirubin (0.2-1.0) mg/dL 0.2 AST (15-37) U/L 31 ALT (14-59) U/L 20 Alkaline Phosphatase (46-116) U/L 79 Total Protein (6.4-8.2) g/dL 7.4 Albumin (3.4-5.0) g/dL 3.9 TSH (0.36-3.74) uIU/mL 4.01 H Free T4 (0.76-1.46) ng/dL 1.03 Ethyl Alcohol (<3) mg/dL 254.7 COVID-19 Source Nasal/Nares SARS-CoV-2 (PCR) (Negative) Negative HPI General Mode of arrival: ambulatory. Date/Time Provider Initiated Documentation: 05/05/21 17:25. Limitations to Documentation: no limitations. Information obtained by: patient. HPI Narrative: Is a 31-year-old female, past medical history of depression, self cutting, hypothyroidism, anxiety, anorexia, borderline personality disorder, alcohol abuse, presenting to the ER for evaluation of alcohol intoxication and suicidal ideation. Patient states that she is chronically depressed but today was pulled over by law enforcement while drinking alcohol, denies any MVA, reports that she wants to but does not have any specific plan. Patient admits to self cutting abrasions to her left forearm and lower left leg. Patient denies recent illness or trauma. She states that she would like to be placed to an inpatient facility both for alcohol detox and depression with SI. Patient denies any self harming behavior today. She currently denies headache, visual changes, neck pain, chest pain, shortness of breath, abdominal pain, nausea, vomiting, change in bowel or bladder function, numbness, tingling, weakness. Patient admits to drinking hard liquor, typically vodka at least 3 or 4 times a week. She is unable to tell me exactly how much she drank today. She denies alcohol withdrawal seizures or delirium. Related Data Home Medications Medication Instructions Recorded Confirmed levothyroxine 75 mcg capsule 75 mcg PO DAILY #90 cap 06/14/20 05/05/21 norgestimate-ethinyl estradiol 1 tab PO DAILY #84 tab 08/15/20 11/12/20 0.18 mg/0.215mg/0.25mg-35 mcg(28)tablet norgestimate-ethinyl estradiol 1 tab PO DAILY #28 tab 02/02/21 04/21/21 0.18 mg/0.215mg/0.25mg-35 mcg(28)tablet sertraline [Zoloft] 125 mg PO DAILY 04/21/21 05/05/21 hydroxyzine HCl 50 mg PO BID PRN PRN #60 tab 04/22/21 05/05/21 Previous Rx's Medication Instructions Recorded levothyroxine 75 mcg capsule 75 mcg PO DAILY #90 cap 06/14/20 norgestimate-ethinyl estradiol 1 tab PO DAILY #84 tab 08/15/20 0.18 mg/0.215mg/0.25mg-35 mcg(28)tablet norgestimate-ethinyl estradiol 1 tab PO DAILY #28 tab 02/02/21 0.18 mg/0.215mg/0.25mg-35 mcg(28)tablet hydroxyzine HCl 50 mg PO BID PRN PRN #60 tab 04/22/21 Allergies Allergy/AdvReac Type Severity Reaction Status Date / Time No Known Allergies Allergy Unverified 05/05/21 17:12 General Stated Complaint: PsychEval RUDDY: 2 Review of Systems Constitutional Constitutional: Denies fatigue, Denies fever(s) and Denies headache(s) ENT Ears, Nose, Mouth, and Throat: Denies headache(s) and Denies neck pain Cardiovascular Cardiovascular: Denies chest pain and Denies dyspnea Respiratory Respiratory: Denies cough and Denies dyspnea Gastrointestinal Gastrointestinal: Denies abdominal pain, Denies nausea and Denies vomiting Genitourinary Genitourinary: Denies dysuria Musculoskeletal Musculoskeletal: Denies neck pain Integumentary/Breasts Skin/Breast: Denies rash Neurologic Neurologic: Denies headache(s) Psychiatric Psychiatric: Reports anxiety, Reports depression, Denies homicidal ideation and Reports suicidal ideation Endocrine Endocrine: Denies fatigue [facility] Medical History Anorexia nervosa (10/16/12) Inpatient treatment at [facility] and [facility] from 2004 to 2009 Borderline personality disorder (11/17/12) Carpal tunnel syndrome, bilateral Eating disorder Generalized anxiety disorder Hyperlipidemia Hypothyroidism (01/08/13) Major depressive disorder Medication overdose at age 21--partly accidental, partly intentional Vitamin D deficiency Family History Mother Alcohol abuse Substance abuse Depression Father No problems noted. Sister No problems noted. Sister No problems noted. Brother No problems noted. Maternal Grandfather Heart disease Hypertension Diabetes Maternal Grandmother Hypertension Hyperlipidemia Social History Smoking/Tobacco Use Status: Never Second Hand Exposure: Yes Smoking risk assessment performed?: Yes Alcohol Intake: current Alcohol Intake frequency: 3 or more drinks per day Alcohol type: hard liquor Drug use: Never Substance use type: does not use Details: pt denies tobacco or substance abuse. States she drinks daily but denies withdrawal symptoms if she doesnt drink. Is intoxicated upon arrival, poor historian. Caregiver/Support person: No Household members: family Housing: apartment Communication Needs: None Do you need help understanding health information?: Rarely Pets and animals: Yes Sexually active: No Do you think of yourself as: straight/heterosexual Current gender identity: female What is your relationship status?: never How often do you talk on the phone with friends or family?: once per week How often do you get together with friends or relatives?: decline to answer How often do you attend evangelical or shinto services?: decline to answer Do you belong to any clubs or organized social groups?: no Panel score (0-1 are the most socially isolated patients): 0 What type of physical activity do you participate in: weight lifting Duration: 60-90 minutes/day Frequency: 5-6 times per week Niru/Mandaeism: None Special niru needs: No Seatbelt use: always Helmet use: Yes Helmet use: always Drive intox or ride w/intox day haul or farm charter bus driver: No Do you feel safe at home: Yes Do you feel safe in your relationship?: Yes Female Reproductive History Menstrual Age of Menarche: 14 History History 0 Para Hx # Term Pregnancies Multiple births Hx # Pregnancies Ectopic pregnancies AB induced Hx Number of Living Children AB spontaneous Exam Const General: cooperative, comfortable and no acute distress Orientation: alert, awake and oriented x3 HENMT Head: normal to inspection, normocephalic and atraumatic Face and sinus: normal facial exam Mouth: moist mucous membranes Eyes General: appearance normal, both eyes and all related structures Conjunctivae: conjunctivae normal Neck Neck: normal visual inspection, full ROM, trachea midline and supple Resp Effort & Inspection: normal respiratory effort and able to speak in complete sentences Auscultation: clear to auscultation bilaterally Cardio Rate: tachycardic (106) Rhythm: regular rhythm GI Palpation: soft and nontender Back/Spine/Pelvis Back: no CVA tenderness and No back tenderness Skin Rashes: no rashes Other: Self-inflicted abrasions to left forearm and left lower leg Neuro General: patient alert, patient awake, patient oriented x3, moves all extremities and no focal motor deficits Cognition: normal cognition Speech: speech normal Gait: normal gait Motor: muscle tone normal throughout Sensory Exam: no sensory deficits noted Extrem General: full ROM and capillary refill normal Psych Appearance: grossly normal Mental Status: mental status grossly normal Speech and Movement: speech and movement normal Mood: dysthymic mood Affect: sad Attitude: cooperative Thought Process: normal Thought Content: suicidality Insight: fair Judgment: fair Course Vital Signs Vital signs: Vital Signs Temperature 36.7 C 05/05/21 17:03 Pulse 113 H 05/05/21 17:03 Respiratory Rate 16 05/05/21 17:03 Blood Pressure 121/78 05/05/21 17:03 Pulse Oximetry 98 05/05/21 17:03 Temperature 36.7 C 05/05/21 17:03 Temperature Source Tympanic 05/05/21 17:03 Pulse 113 H 05/05/21 17:03 Respiratory Rate 16 05/05/21 17:03 Respiratory Effort Non-Labored 05/05/21 17:09 Blood Pressure 121/78 05/05/21 17:03 Blood Pressure Position Supine 05/05/21 17:03 Pulse Oximetry 98 05/05/21 17:03 Oxygen Delivery Method Room Air 05/05/21 17:03 Oxygen Flow Rate 0 05/05/21 17:03 Pain Level 0 05/05/21 17:03 Lab/Test Results Lab/Test Results: Laboratory Tests Range/Units 05/05/21 17:57 WBC (4.4-10.8) 10^3/uL 7.52 RBC (3.93-5.22) 10^6/uL 4.64 Hgb (11.2-15.7) g/dL 14.9 Hct (36.0-46.0) % 43.4 MCV (80-95) fL 93.5 MCH (27.0-33.0) pg 32.1 MCHC (32.0-36.0) % 34.3 RDW (11.7-14.6) % 12.2 Plt Count (130-400) 10^3/uL 195 MPV (8.0-11.0) fL 8.9 Immature Gran % 0.3 Neutrophils % 67.3 Lymphocytes % 26.7 Monocytes % 4.8 Eosinophils % 0.4 Basophils % 0.5 Nucleated RBC % % 0 Absolute Neutrophils (1.2-6.7) 10^3/uL 5.06 Absolute Lymphocytes (1.2-3.4) 10^3/uL 2.01 Absolute Monocytes (0.1-0.8) 10^3/uL 0.36 Absolute Eosinophils (0.0-0.7) 10^3/uL 0.03 Absolute Basophils (0.0-0.2) 10^3/uL 0.04 Critical Care Time Critical Care Time Critical Care Time: Yes Total Critical Care Time: 35 Attestation: Upon my evaluation, this patient had a high probability of clinically significant, life-threatening deterioration due to their current medical conditions, which required my direct attention, intervention, and personal management. I have personally provided greater than 30 minutes of critical care time exclusive of the time spend on separately billable procedures. Time includes obtaining a history, examining the patient, pulse oximetry, review of laboratory data, radiology results, discussion with consultants, arranging urgent treatment with development of a management plan, evaluation of patient's response to treatment, and monitoring for potential decompensation. Interventions were performed as documented above. PAWSS Have you Been Recently Intoxicated or Drunk Within the Last 30 days?: Yes Have you Ever Experienced Previous Episodes of Alcohol Withdrawal?: No Have you ever Experienced Withdrawal Seizures?: No Have you ever Experienced Delirium Tremens(DT)s?: No Have you ever undergone Alcohol Rehabilitation Treatment (i.e, inpt ot outpatient treatment programs)?: No Have you ever Experienced Blackouts?: No Have you ever Combined Alcohol with other Downers within the last 90 days?: No Have you ever Combined Alcohol with any other Substance of Abuse during the last 90 days?: No Positive Blood Alcohol level on Presentation? [PCS.BAL]: No Evidence of Increased Autonomic Activity (i.e. HR>120, tremor, sweating, agitation, nausea)?: No Result: 1
[2021-05-05 18:28] LABS: Source Nasal/Nares
[2021-05-05 18:38] LABS: ALT 20 U/L (14-59); AST 31 U/L (15-37); Albumin 3.9 g/dL (3.4-5.0); Alkaline Phosphatase 79 U/L (46-116); Anion Gap 10.8 mmol/L (3-11); BUN 15 mg/dL (7-18); Bilirubin, Total 0.2 mg/dL (0.2-1.0); CO2 27.2 mmol/L (21.0-32.0); CREATININE 0.8 mg/dL (0.55-1.02); Calcium 8.5 mg/dL (8.5-10.1); Chloride 110 mmol/L (98-107); ETHANOL BLOOD 254.7 mg/dL (<3); Glucose 85 mg/dL (74-106); Potassium 3.6 mmol/L (3.5-5.1); Sodium 148 mmol/L (136-145); TSH (W/Ref FT4) 4.01 uIU/mL (0.36-3.74); Total Protein 7.4 g/dL (6.4-8.2)
[2021-05-05] MEDS: Folic Acid 1 MG TAB PO (18:48)
[2021-05-05] MEDS: Multivitamin TAB 1 TAB PO (18:48)
[2021-05-05] MEDS: Thiamine 100 MG TAB PO (18:48)
[2021-05-05 19:17] LABS: FREE T4 1.03 ng/dL (0.76-1.46)
[2021-05-05 19:24] LABS: COVID-19 PCR Negative (Negative)
[2021-05-05] MEDS: PHENobarbital 100 MG in Normal Saline 50 ML IVPB ×2 (19:35→22:50)
[2021-05-05] MEDS: Normal Saline 1,000 ML 30 ML IV (19:44)
[2021-05-05] MEDS: Lactated Ringers 1,000 ML 100 ML IV (22:50)
--- NOTE | 2021-05-05 23:02 | W.PM.HP.N ---
Date of service: 05/05/21 Time of Service: 23:03 Assessment and Plan Assessment and plan (1) Alcohol withdrawal: Status: Acute Assessment and plan: The patient was loaded with phenobarbital in the ED. Should she continue having symptoms of alcohol withdrawal, we will add prn doses of phenobarbital with monitoring of phenobarbital level. At this time, the patient is considered stable for monitoring on medsurg floor. Qualifiers: Complication of substance-induced condition: with unspecified complication Qualified Code(s): F10.239 - Alcohol dependence with withdrawal, unspecified (2) Alcohol intoxication: Status: Acute Assessment and plan: With h/o alcohol abuse. Monitor for w/d as above. Provide vitamin supplementation. Check B12 and folic acid levels. Qualifiers: Complication of substance-induced condition: with unspecified complication Qualified Code(s): F10.929 - Alcohol use, unspecified with intoxication, unspecified (3) Depression with suicidal ideation: Status: Acute Assessment and plan: In setting of alcohol withdrawal. We will have mental health evaluate the patient once she is medically cleared. For now, provide CPSO/suicide precautions. (4) Eating disorder: Status: Chronic Assessment and plan: Ailyn states that she has stopped eating. Mental health to evaluate. We will provide IVF/vitamin supplementation. Check electrolyte levels (magnesium/phosphate in addition to the BMP). (5) DVT prophylaxis: Status: Acute Assessment and plan: Not required in an ambulatory 31 year old patient (6) Discharge planning issues: Status: Acute Assessment and plan: Full code Disposition pending mental health evaluation. History of Present Illness History of Present Illness Chief Complaint: Suicidal ideation Narrative: Ms Gaffney is a 31 year old female with PMHx of alcohol abuse with h/o alcohol withdrawal, but not alcohol withdrawal seizures, as well as h/o depression, anxiety, eating disorder (anorexia nervosa), borderline personality disorder, who was driving while intoxicated when she was pulled over by the police. When she was brought to the ED, she was found to have an alcohol level of 254.7 mg/dL. She was very anxious and expressed suicidal ideation. Due to the h/o prior withdrawal was initiated on prophylactic phenobarbital protocol. Hospitalist admission was requested. At the time of my visit with her, Ailyn denies anxiety/tremulousness. She states that she stopped eating yesterday and won't eat. She is still feeling suicidal but without a specific plan. She has never had prior suicide attempts. She is not sure what is triggering this feeling. Review of Systems All systems reviewed & are unremarkable except as noted in HPI and below PFSH Medical History Anorexia nervosa (10/16/12) In[facility] [place] [facility] Borderline personality disorder (11/17/12) Carpal tunnel syndrome, bilateral Eating disorder Generalized anxiety disorder Hyperlipidemia Hypothyroidism (01/08/13) Major depressive disorder Medication overdose at age 21--partly accidental, partly intentional Vitamin D deficiency Family History Mother Alcohol abuse Substance abuse Depression Father No problems noted. Sister No problems noted. Sister No problems noted. Brother No problems noted. Maternal Grandfather Heart disease Hypertension Diabetes Maternal Grandmother Hypertension Hyperlipidemia Social History Smoking/Tobacco Use Status: Never Second Hand Exposure: Yes Smoking risk assessment performed?: Yes Alcohol Intake: current Alcohol Intake frequency: 3 or more drinks per day Alcohol type: hard liquor Drug use: Never Substance use type: does not use Details: pt denies tobacco or substance abuse. States she drinks daily but denies withdrawal symptoms if she doesnt drink. Is intoxicated upon arrival, poor historian. Caregiver/Support person: No Household members: family Housing: apartment Communication Needs: None Do you need help understanding health information?: Rarely Pets and animals: Yes Sexually active: No Do you think of yourself as: straight/heterosexual Current gender identity: female What is your relationship status?: never How often do you talk on the phone with friends or family?: once per week How often do you get together with friends or relatives?: decline to answer How often do you attend baptism or methodist services?: decline to answer Do you belong to any clubs or organized social groups?: no Panel score (0-1 are the most socially isolated patients): 0 What type of physical activity do you participate in: weight lifting Duration: 60-90 minutes/day Frequency: 5-6 times per week Niru/Zoroastrian: None Special niru needs: No Seatbelt use: always Helmet use: Yes Helmet use: always Drive intox or ride w/intox commercial driver's license driver: No Do you feel safe at home: Yes Do you feel safe in your relationship?: Yes Female Reproductive History Menstrual Age of Menarche: 14 History History 0 Para Hx # Term Pregnancies Multiple births Hx # Pregnancies Ectopic pregnancies AB induced Hx Number of Living Children AB spontaneous Meds Allergies and Home Medications Allergies Allergy/AdvReac Type Severity Reaction Status Date / Time No Known Allergies Allergy Unverified 05/05/21 17:12 Home Medications Medication Instructions Recorded Confirmed Type levothyroxine 75 mcg capsule 75 mcg PO DAILY #90 cap 06/14/20 05/05/21 Rx norgestimate-ethinyl estradiol 1 tab PO DAILY #84 tab 08/15/20 11/12/20 Rx 0.18 mg/0.215mg/0.25mg-35 mcg(28)tablet norgestimate-ethinyl estradiol 1 tab PO DAILY #28 tab 02/02/21 04/21/21 Rx 0.18 mg/0.215mg/0.25mg-35 mcg(28)tablet sertraline [Zoloft] 125 mg PO DAILY 04/21/21 05/05/21 History hydroxyzine HCl 50 mg PO BID PRN PRN #60 tab 04/22/21 05/05/21 Rx Exam Narrative Exam Narrative: General: Pleasant female who is asleep in the ED stretcher, easily arousable, A&Ox3, not tremulous, calm Neurological: A&Ox3, no focal deficits Psychiatric: Appropriate speech pattern/content, flat affet Skin: Large ecchymosis L forearm (old), evidence of old healing small cuts L forearm HEENT: Atraumatic, normocephalic, EOMI, dry MM, clear oropharynx, no submandibular or cervical lymphadenopathy, no goiter or JVD Cardiovascular: RRR, no m/r/g Lungs: CTAB Gastrointestinal: soft, nontender, nondistended Genitourinary: deferred Extremities: no edema BLE's Results Labs Result diagrams: 05/05/21 17:57 05/05/21 17:57 Labs: Laboratory Results - last 24 hr 05/05/21 05/05/21 05/05/21 17:57 17:57 18:00 WBC 7.52 RBC 4.64 Hgb 14.9 Hct 43.4 MCV 93.5 MCH 32.1 MCHC 34.3 RDW 12.2 Plt Count 195 MPV 8.9 Immature Gran % 0.3 Neutrophils % 67.3 Lymphocytes % 26.7 Monocytes % 4.8 Eosinophils % 0.4 Basophils % 0.5 Nucleated RBC % 0 Absolute Neutrophils 5.06 Absolute Lymphocytes 2.01 Absolute Monocytes 0.36 Absolute Eosinophils 0.03 Absolute Basophils 0.04 Sodium 148 H Potassium 3.6 Chloride 110 H Carbon Dioxide 27.2 Anion Gap 10.8 BUN 15 Creatinine 0.8 Estimated GFR/1.73 m2 >= 60.00 Glucose 85 Calcium 8.5 Total Bilirubin 0.2 AST 31 ALT 20 Alkaline Phosphatase 79 Total Protein 7.4 Albumin 3.9 TSH 4.01 H Free T4 1.03 Ethyl Alcohol 254.7 COVID-19 Source Nasal/Nares SARS-CoV-2 (PCR) Negative Last Vital Signs Temp 36.7 C 05/05/21 17:03 Pulse 71 05/05/21 22:31 Resp 15 05/05/21 22:31 BP 104/61 05/05/21 22:31 Pulse Ox 95 05/05/21 22:31 PAWSS Have you Been Recently Intoxicated or Drunk Within the Last 30 days?: Yes Have you Ever Experienced Previous Episodes of Alcohol Withdrawal?: No Have you ever Experienced Withdrawal Seizures?: No Have you ever Experienced Delirium Tremens(DT)s?: No Have you ever undergone Alcohol Rehabilitation Treatment (i.e, inpt ot outpatient treatment programs)?: No Have you ever Experienced Blackouts?: No Have you ever Combined Alcohol with other Downers within the last 90 days?: No Have you ever Combined Alcohol with any other Substance of Abuse during the last 90 days?: No Positive Blood Alcohol level on Presentation? [PCS.BAL]: No Evidence of Increased Autonomic Activity (i.e. HR>120, tremor, sweating, agitation, nausea)?: No Result: 1
[2021-05-06] VITALS (11 sets, daily range): BP systolic 117–134; BP diastolic 62–82; PULSE 46–84; RESP 16–20; TEMP 35.1–37.3; O2SAT 97–99
[2021-05-06 06:33] LABS: Bilirubin Negative (Negative); Blood Moderate (Negative); Clarity Clear (Clear); Glucose Negative (Negative); Ketones 15 mg/dL (Negative); Leukocyte Esterase Negative (Negative); Nitrite Negative (Negative); Specific Gravity >= 1.030 (1.005-1.025); Urobilinogen 0.2 EU/dL (Up TO 0.2); pH 5.5 (5-8)
[2021-05-06 06:43] LABS: Bacteria Rare HPF (Negative); C & S Indicated? No; Casts Negative LPF (Negative); Crystals Negative HPF (Negative); Epithelial Cells Many HPF (Negative); Mucus Negative (Negative); WBC 0-2 HPF (0-5)
[2021-05-06 06:46] LABS: *AMPHETAMINES SCREEN URINE Negative (Negative); *BARBITURATES SCREEN URINE Positive (Negative); *BENZODIAZEPINES SCREEN URINE Negative (Negative); Cannabinoids THC Negative (Negative); Cocaine Screen,Urine Negative (Negative); METHADONE URINE SCREEN Negative (Negative); OPIATES URINE SCREEN Negative (Negative)
[2021-05-06 06:47] LABS: Tricyclic Antidepressants Negative (Negative)
[2021-05-06] MEDS: Normal Saline Flush 10 ML SYR IVP (07:00)
[2021-05-06 08:59] LABS: Anion Gap 11.4 mmol/L (3-11); BUN 14 mg/dL (7-18); CO2 22.6 mmol/L (21.0-32.0); CREATININE 0.6 mg/dL (0.55-1.02); Calcium 8.7 mg/dL (8.5-10.1); Chloride 105 mmol/L (98-107); Glucose 75 mg/dL (74-106); Magnesium 1.6 mg/dL (1.8-2.4); Potassium 3.9 mmol/L (3.5-5.1); Sodium 139 mmol/L (136-145)
[2021-05-06 09:43] LABS: Vitamin B12 1285 pg/mL (193-986)
[2021-05-06] MEDS: Folic Acid 1 MG TAB PO (09:48)
[2021-05-06] MEDS: Multivitamin TAB 1 TAB PO (09:48)
[2021-05-06] MEDS: Thiamine 100 MG TAB PO (09:49)
--- NOTE | 2021-05-06 10:14 | PDOC.CMSAFE ---
- If Service Date Differs Date of service: 05/06/21 Time of Service: 11:26 Care Management Safety Plan Status: Interim - Reason for Wait Reason for Wait: Medical Clearance Chief Complaint: Ailyn is admitted for SI and ETOH withdrawal. PMH significant for Anorexia with inpatient treatment, Borderline personality disorder, Major Depressive DIsorder, Generalized anxiety disorder, previous partially accidential overdose. See initial assessment for further information. CM will respond to ED to assess patient after patient has been medically cleared and assessed by screener. If screener deems patient meets criteria for psychiatric stabilization CM will facilitate interdepartmental huddle with [facility] screener for safety planning considerations and meet with patient to review [facility] policy and safety plan, establish individual wishes for treatment and maintain patient rights. In the interim; please note safety plan below to guide patient care while awaiting further assessment in the ED. INTERIM SAFETY PLAN: 1. Will remain on suicide precautions and in paper clothes or hospital gown. 2. Will remain in room under direct supervision of one-on-one staff at all times provided by NELSY, DIRECTOR PART cork floor installer. 3. May have paper cups, plates, finger foods as well as a cardboard spoon with which to eat meals. 4. Follow [facility] Management of the Admitted Behavioral Health Patient policy. 5. Personal care: Comfort bath system and shower with escort permitted at this time per RN discretion. 6. Bathroom available in room without limitation on Med/Surg. 6. No personal belongings at this time; per RN discretion. 7. No visitors at this time. 8. Phone contact limited to incoming and outgoing phone calls on [facility] cordless phone at RN discretion. 9. Activities: Med/Surg: Television, remote, and music tablet per RN discretion. 10. Due to INTERIM VOLUNTARY status, if patient wishes to leave [facility], staff will contact [facility] Crisis Screener ([phone]) and On-Call System Architect ([phone]) as soon as possible. In the event of elopement, notify [facility] Police ([phone]). If deemed appropriate for inpatient psychiatric care, safety plan will be established with patient, and care team, to adhere to patient goals, identify restrictions based on behavioral status, address nutrition, and determine allowed personal belongings, tools for hygiene and personal care. As well plan will determine level of activity including ambulation, level of supervision, visitors, and determine privileges based on level of acuity, behaviors and level of engagement by patient.
--- NOTE | 2021-05-06 11:57 | W.ANESVAS ---
Midline Placement Date Performed: 05/06/21 Procedure Time: 09:35 Requesting Provider: Shirin Hussein Procedure Location: Med/Surg (225) Sedation Given (Indicate Dose Given): No Sedation given Patient Mental Status: Awake Sterility: Hand Hygiene, Surgical Cap, Surgical Mask and Chlorhexidine Laterality: Right Insertion Site: Brachial Midline Device: PowerGlide Pro 20G Catheter Length: 8 cm Midline Procedure Procedure: Vessel accessed with catheter over needle, Guidewire placed with ease, Catheter placed without resistance and Guidewire removed Dressing: Tegaderm Applied, Statlock Applied and Mastisol Used Blood Return: Present Flushes: Easily Ultrasound: Used to magda site Number of Attempts (See previous attempts in note section): 2 Procedure Tolerated: No Complications and Patient tolerated well Procedure Outcome: Successful Performed By: Fermin Whitfield
[2021-05-06 12:11] LABS: HCG Qual (Urine) Negative
[2021-05-06] MEDS: Lactated Ringers 1,000 ML 100 ML IV ×2 (14:06→23:06)
[2021-05-06] MEDS: Magnesium Oxide 400 MG TAB 800 MG PO (16:15)
--- NOTE | 2021-05-06 16:31 | W.PM.PROGNOT ---
Date of Service Date of service: 05/06/21 Time of Service: 16:31 Assessment and Plan Assessment and plan (1) Alcohol intoxication: Status: Acute Assessment and plan: patient presented intoxicated w/ AMOL of 254. she is no longer intoxicated. She was medicated last night for alleged alcohol withdrawal although she historically has not had delirium tremens. She was given phenobarbital for total of 100 mg so she was not even given the full loading dose and this kept her calm and sedated through the night. This moring she was getting anxious and was given serax 15 mg. I think at this point she is not actually going through withdrawal. We will monitor her through the day and overnight but if she does not escalate then I think she can be medically cleared for psychiatric evaluation. She does want help w/ her depression and anxiety as well as her eating disorder and her alcoholism. She indicated that her grandparents do not want her to return home to live with them because she has repeatedly returned to drinking alcohol. Qualifiers: Complication of substance-induced condition: with unspecified complication Qualified Code(s): F10.929 - Alcohol use, unspecified with intoxication, unspecified (2) Alcohol withdrawal: Status: Suspected Assessment and plan: as above. Unless her CIWA scores are high, I think that this diagnosis can be excluded. Qualifiers: Complication of substance-induced condition: with unspecified complication Qualified Code(s): F10.239 - Alcohol dependence with withdrawal, unspecified (3) Depression with suicidal ideation: Status: Acute Assessment and plan: patient is wanting inpatient help w/ her depression and anxiety and her eating disorder as well as her alcoholism. (4) Depression: Status: Chronic Qualifiers: Depression Type: major depressive disorder Major depression recurrence: recurrent Active/Remission status: currently active Major depression episode severity: severe Psychotic features: without psychotic features Qualified Code(s): F33.2 - Major depressive disorder, recurrent severe without psychotic features (5) Discharge planning issues: Status: Acute Assessment and plan: await mental health evaluation tomorrow for disposition Subjective Subjective Interval history since last seen: Patient is alert and tearful. She states that her grandparents no longer want her at home because of her recidivism from her alcoholism. Patient wants help with her alcoholism and depression and anxiety disorder. She is currently medically hospitalized secondary to acute alcohol intoxication from last night and potential alcohol withdrawal. She is not really showing signs of acute alcohol withdrawal although she is on a CIWA protocol with as needed dosing of Serax. Yesterday she received low-dose phenobarbital prophylactically prior to losing her IV access. Exam Narrative Exam Narrative: Young white female lying in bed alert and oriented person place time circumstance. Her nurse in the room with her. She is tearful. HEENT is otherwise unremarkable lungs are clear to auscultation. Heart regular rate and rhythm. Abdomen soft and nontender nondistended. Extremities without peripheral cyanosis or edema. No open sores. Psychiatric exam is remarkable for her making good eye contact with me she is tearful and sad. Objective Last Vital Signs Temp 37.1 C 05/06/21 16:00 Pulse 74 05/06/21 16:00 Resp 16 05/06/21 16:00 BP 128/82 05/06/21 16:00 Pulse Ox 98 05/06/21 16:00 Laboratory Results - last 24 hr 05/05/21 05/05/21 05/05/21 17:57 17:57 18:00 WBC 7.52 RBC 4.64 Hgb 14.9 Hct 43.4 MCV 93.5 MCH 32.1 MCHC 34.3 RDW 12.2 Plt Count 195 MPV 8.9 Immature Gran % 0.3 Neutrophils % 67.3 Lymphocytes % 26.7 Monocytes % 4.8 Eosinophils % 0.4 Basophils % 0.5 Nucleated RBC % 0 Absolute Neutrophils 5.06 Absolute Lymphocytes 2.01 Absolute Monocytes 0.36 Absolute Eosinophils 0.03 Absolute Basophils 0.04 Sodium 148 H Potassium 3.6 Chloride 110 H Carbon Dioxide 27.2 Anion Gap 10.8 BUN 15 Creatinine 0.8 Estimated GFR/1.73 m2 >= 60.00 Glucose 85 Calcium 8.5 Phosphorus Magnesium Total Bilirubin 0.2 AST 31 ALT 20 Alkaline Phosphatase 79 Total Protein 7.4 Albumin 3.9 Vitamin B12 Folate TSH 4.01 H Free T4 1.03 Urine Color Urine Clarity Urine pH Ur Specific Kinder Urine Protein Urine Ketones Urine Blood Urine Nitrite Urine Bilirubin Urine Urobilinogen Ur Leukocyte Esterase Urine RBC Urine WBC Ur Epithelial Cells Urine Crystals Urine Bacteria Urine Casts Urine Mucus Ur Culture Indicated? Urine Glucose Urine HCG, Qual Urine Opiates Screen Urine Methadone Screen Ur Barbiturates Screen Ur Tricyclics Screen Ur Amphetamines Screen U Benzodiazepines Scrn Urine Cocaine Screen Ur THC Screen Ethyl Alcohol 254.7 COVID-19 Source Nasal/Nares SARS-CoV-2 (PCR) Negative 05/06/21 05/06/21 05/06/21 06:00 06:00 06:00 WBC RBC Hgb Hct MCV MCH MCHC RDW Plt Count MPV Immature Gran % Neutrophils % Lymphocytes % Monocytes % Eosinophils % Basophils % Nucleated RBC % Absolute Neutrophils Absolute Lymphocytes Absolute Monocytes Absolute Eosinophils Absolute Basophils Sodium Potassium Chloride Carbon Dioxide Anion Gap BUN Creatinine Estimated GFR/1.73 m2 Glucose Calcium Phosphorus Magnesium Total Bilirubin AST ALT Alkaline Phosphatase Total Protein Albumin Vitamin B12 Folate TSH Free T4 Urine Color Yellow Urine Clarity Clear Urine pH 5.5 Ur Specific Kinder >= 1.030 H Urine Protein Negative Urine Ketones 15 H Urine Blood Moderate H Urine Nitrite Negative Urine Bilirubin Negative Urine Urobilinogen 0.2 Ur Leukocyte Esterase Negative Urine RBC 5-10 H Urine WBC 0-2 Ur Epithelial Cells Many Urine Crystals Negative Urine Bacteria Rare Urine Casts Negative Urine Mucus Negative Ur Culture Indicated? No Urine Glucose Negative Urine HCG, Qual Negative Urine Opiates Screen Negative Urine Methadone Screen Negative Ur Barbiturates Screen Positive A Ur Tricyclics Screen Negative Ur Amphetamines Screen Negative U Benzodiazepines Scrn Negative Urine Cocaine Screen Negative Ur THC Screen Negative Ethyl Alcohol COVID-19 Source SARS-CoV-2 (PCR) 05/06/21 05/06/21 08:35 08:35 WBC RBC Hgb Hct MCV MCH MCHC RDW Plt Count MPV Immature Gran % Neutrophils % Lymphocytes % Monocytes % Eosinophils % Basophils % Nucleated RBC % Absolute Neutrophils Absolute Lymphocytes Absolute Monocytes Absolute Eosinophils Absolute Basophils Sodium 139 Potassium 3.9 Chloride 105 Carbon Dioxide 22.6 Anion Gap 11.4 H BUN 14 Creatinine 0.6 Estimated GFR/1.73 m2 >= 60.00 Glucose 75 Calcium 8.7 Phosphorus 3.0 Cancelled Magnesium 1.6 L Total Bilirubin AST ALT Alkaline Phosphatase Total Protein Albumin Vitamin B12 1285 H Folate 19.0 TSH Free T4 Urine Color Urine Clarity Urine pH Ur Specific Kinder Urine Protein Urine Ketones Urine Blood Urine Nitrite Urine Bilirubin Urine Urobilinogen Ur Leukocyte Esterase Urine RBC Urine WBC Ur Epithelial Cells Urine Crystals Urine Bacteria Urine Casts Urine Mucus Ur Culture Indicated? Urine Glucose Urine HCG, Qual Urine Opiates Screen Urine Methadone Screen Ur Barbiturates Screen Ur Tricyclics Screen Ur Amphetamines Screen U Benzodiazepines Scrn Urine Cocaine Screen Ur THC Screen Ethyl Alcohol COVID-19 Source SARS-CoV-2 (PCR) PAWSS Have you Been Recently Intoxicated or Drunk Within the Last 30 days?: Yes Have you Ever Experienced Previous Episodes of Alcohol Withdrawal?: No Have you ever Experienced Withdrawal Seizures?: No Have you ever Experienced Delirium Tremens(DT)s?: No Have you ever undergone Alcohol Rehabilitation Treatment (i.e, inpt ot outpatient treatment programs)?: No Have you ever Experienced Blackouts?: No Have you ever Combined Alcohol with other Downers within the last 90 days?: No Have you ever Combined Alcohol with any other Substance of Abuse during the last 90 days?: No Positive Blood Alcohol level on Presentation? [PCS.BAL]: No Evidence of Increased Autonomic Activity (i.e. HR>120, tremor, sweating, agitation, nausea)?: No Result: 1
--- NOTE | 2021-05-06 17:41 | INITIAL_ITS ---
- If Service Date Differs Date of service: 05/06/21 Time of Service: 17:41 Care Management Initial Assess REASON FOR HOSPITALIZATION:: Alcohol Withdrawal PAST MEDICAL HISTORY/PAST SURGICAL HISTORY:: Anorexia nervosa (10/16/12). Inpatient treatment at [facility] in [place] and [facility] from 2004 to 2009. Borderline personality disorder (11/17/12). Carpal tunnel syndrome, bilateral. Eating disorder. Generalized anxiety disorder. Hyperlipidemia. Hypothyroidism (01/08/13). Major depressive disorder. Medication overdose. at age 21--partly accidental, partly intentional. Vitamin D deficiency PREVIOUS FUNCTIONAL STATUS/SOCIAL/FAMILY SUPPORTS:: Ailyn resides in [place] with her grandparents. 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 She has a history of severe eating disorder, requiring intensive inpatient treatment. She was followed by [facility] as well, but discontinued earlier this year. She continues to see a counselor, paint stock clerk and recently signed up for a DBT group at [facility]. She has chronic constipation and is laxative dependent. She also struggles with major depressive disorder and anxiety as well as borderline personality disorder. She struggles with sleep as well. CURRENT FUNCTIONAL STATUS:: Ailyn reports she has not eaten since Friday, thus far she has had no oral intake at [facility]. She is actively withdrawing, being treated per protocol and is in and out of consiousness. When awake for moments at a time, she advocates for being able to call family, tentatively added to care plan, will need to be reviewed if this becomes a stressor for her. She will be evaluated by [facility] crisis screener once medically cleared. ADVANCE DIRECTIVES:: None on file. [facility] lists [facility] and Brenda Rendon and Denita Tinsley. Has patient been provided with info about the portal/API?: No Did the patient sign up for the portal?: No CODE STATUS:: Full Code INSURANCE COVERAGE / FINANCIAL ISSUES:: Medicaid. Medicare CURRENT HOME/COMMUNITY SERVICES/EQUIPMENT:: Disability. Senior Software Development Manager, counselor, DBT skills group, connected to Site Safety Manager. POTENTIAL DISCHARGE NEEDS:: [facility] crisis screening. Reconnect to sales coach. PATIENT/FAMILY EDUCATION NEEDS:: Review of discharge instructions, discuss Ask Me Three. ANTICIPATED BARRIERS TO DISCHARGE:: None identified. TRANSPORTATION:: TBD by disposition. PLAN:: Ailyn will be evaluated by [facility] crisis screener once medically cleared. CPSO and Interim safety plan in place. CM continues to follow.
[2021-05-06] MEDS: Zolpidem 5 MG TAB PO (21:50)
[2021-05-07 04:17] VITALS: BP 122/80; PULSE 51; RESP 16; TEMP 35.6; O2SAT 97
[2021-05-07 07:00] VITALS: PULSE 48
[2021-05-07 08:57] VITALS: BP 132/83; PULSE 67; RESP 16; TEMP 36.7; O2SAT 98
[2021-05-07] MEDS: Folic Acid 1 MG TAB PO (09:01)
[2021-05-07] MEDS: Multivitamin TAB 1 TAB PO (09:01)
[2021-05-07] MEDS: Magnesium Oxide 400 MG TAB 800 MG PO ×2 (09:01→19:26)
[2021-05-07] MEDS: Thiamine 100 MG TAB PO (09:01)
--- NOTE | 2021-05-07 09:44 | PDOC.CMPRO ---
- If Service Date Differs Date of service: 05/07/21 Time of Service: 09:44 Care Management Progress Note S/O:Ailyn was sitting up in bed when CM met with her. She was teary and asked to be able to talk with her family. Per her safety plan, she is allowed to make and receive calls on the hospital phone so CM facilitated the call. It was discovered that Ailyn had her cell phone in her possession so CM removed it and placed it in the safe after retrieving the phone numbers Ailyn needed. Ailyn met with Hamlet from [facility] via Zoom and admitted to drinking and receiving a DUI - her second. When asked if she felt suicidal, Ailyn replied that she just wishes she weren't here anymore but does not have a plan. She later shared with GEGE that she had just received her license back the day before and took off in the car and drank alcohol. She verbalized feeling badly because she disappointed her grandparents again and now has no place to live. She stated that she just wasn't thinking. A: Ailyn is a 31 year old young lady admitted on 05/05/21 with alcohol withdrawal and SI P:Ailyn was evaluated by [facility] crisis screener Hamlet Harmon ands [facility] CPSO and Safety plan in place. GEGE continues to follow.
[2021-05-07 09:52] VITALS: PULSE 76
[2021-05-07] MEDS: Oxazepam 10 MG CAP PO ×2 (09:52→19:25)
[2021-05-07] MEDS: Lactated Ringers 1,000 ML 100 ML IV (11:51)
--- NOTE | 2021-05-07 15:23 | PDOC.MHCN_ITS ---
Date of service: 05/07/21 Time of Service: 11:15 Mental Health Crisis Note Presenting Issue How did you arrive at the ED and why did you come: The patient was diverted to [facility] emergency department 05.05.21 for drinking and driving. Patient requests voluntary in-patient referral for dual diagnosis of chronic depression, suicidal ideation and alcohol detoxification. Precipitating Factors The patient is seen via telehealth at [facility] following medical clearance. She is fully alert and oriented to time, person, place and global circumstance with report of 'black spots' in reference to recall on events transpiring 05.05. She is calm and behaviorally appropriate with fair eye contact throughout assessment. Speech is soft, unpressured, appropriate spontaneity, anxious / depressive tone. She is tearful at various points and describes mood as I just want to talk to my family. Affect is dysphoric and emotional. Thought process appears logical and coherent. No report or presenting evidence of delusions or hallucinations. Patient reports I got another DUI. It's the second one. My grandparents kicked me out. She reports being depressed and binge drinking for the past 2 years. She endorses passive SI, no intent or plan, and states I don't have a plan or anything I just don't want to be here. She denies current HI, intent or plan. Patient maintains wanting referral for in- patient treatment at this time. Disposition BEHAVIOR: Cooperative EYE CONTACT: Fair MOOD: Just want to talk to my family. AFFECT: Dysphoric / tearful APPETITE: No reported issues SLEEP(trouble falling/staying asleep: No reported issues Plan The patient will remain at [facility] on voluntary status and await in-patient placement for depression and ETOH dependence. She will be assessed daily by [facility] and if a suitable safety plan can be devised, including expedited appointment with therapist or any additional appropriate support measures, discharge back to the community may be considered pending presentation and discretion of screener. Contact list [facility] - Accepting in-house referrals only due to capacity. [facility] - At capacity, no anticipated changes for 2-3 days. Referral faxed. [facility] - 'Do not connect' status. [facility] - At capacity. Referral faxed. [facility] - Both units full / multiple PTs in local ED, at capacity. [facility] - At capacity. Referral faxed.
--- NOTE | 2021-05-07 15:52 | W.PM.PROGNOT ---
Date of Service Date of service: 05/07/21 Time of Service: 15:53 Assessment and Plan Assessment and plan (1) Depression with suicidal ideation: Status: Acute Assessment and plan: patient continues to express desire for help and remains a voluntary admission. Begin Paxil 20 mg daily along w/ mirtazepine 15 mg HS (2) Depression: Status: Chronic Assessment and plan: as above Qualifiers: Depression Type: major depressive disorder Major depression recurrence: recurrent Active/Remission status: currently active Major depression episode severity: severe Psychotic features: without psychotic features Qualified Code(s): F33.2 - Major depressive disorder, recurrent severe without psychotic features (3) Alcohol intoxication: Status: Resolved Assessment and plan: resolved. No signs of acute alcohol withdrawal Qualifiers: Complication of substance-induced condition: with unspecified complication Qualified Code(s): F10.929 - Alcohol use, unspecified with intoxication, unspecified (4) Discharge planning issues: Status: Acute Assessment and plan: awaiting placement in psychiatric hospital for additional treatment. patient is medically cleared Subjective Subjective Interval history since last seen: Patient remains tearful, she says that she spoke w/ her family and while they indicated that they still love her they do not want her back home d/t her recurrent alcohol abuse. She is still voluntary for psychiatric admission for dual diagnosis treatment of depresssion, alcoholism and eating disorder (anorexia). She has been on Zoloft 150 mg daily for some time now. She believes that she has developed immunity to it. She previously was tried on Celexa which did not work. Some of her symptoms of her depression is depressed appetite and sleeplessness. I am going to try her on Paxil (good for depression and eating disorders) and mirtazepine (good for depression and sleep). No psychiatric bed has become available. With regard to her alcoholism, she is not going through acute withdrawal and has never had DT's. I am discontinuing her CIWA protocol but leaving the Serax in place at reduced dose to be used prn for her anxiety (which is part of her depression and also causes her to score on the CIWA despite not acutely withdrawing). Exam Narrative Exam Narrative: Tearful young female who is alert, appropriate and oriented and goal directed. She looks me in the eyes and answer my questions fully. She is cooperative. She is not exhibiting any hyperhydrosis nor any tremors although she is anxious. Objective Last Vital Signs Temp 36.7 C 05/07/21 08:57 Pulse 76 05/07/21 09:52 Resp 16 05/07/21 08:57 BP 132/83 05/07/21 08:57 Pulse Ox 98 05/07/21 08:57 Laboratory Results - last 24 hr 05/06/21 06:00 Urine HCG, Qual Negative PAWSS Have you Been Recently Intoxicated or Drunk Within the Last 30 days?: Yes Have you Ever Experienced Previous Episodes of Alcohol Withdrawal?: No Have you ever Experienced Withdrawal Seizures?: No Have you ever Experienced Delirium Tremens(DT)s?: No Have you ever undergone Alcohol Rehabilitation Treatment (i.e, inpt ot outpatient treatment programs)?: No Have you ever Experienced Blackouts?: No Have you ever Combined Alcohol with other Downers within the last 90 days?: No Have you ever Combined Alcohol with any other Substance of Abuse during the last 90 days?: No Positive Blood Alcohol level on Presentation? [PCS.BAL]: No Evidence of Increased Autonomic Activity (i.e. HR>120, tremor, sweating, agitation, nausea)?: No Result: 1
[2021-05-07] MEDS: PARoxetine 20 MG TAB PO (16:54)
--- NOTE | 2021-05-07 17:01 | PDOC.CMSAFE ---
- If Service Date Differs Date of service: 05/07/21 Time of Service: 17:01 Care Management Safety Plan Status: Voluntary - Reason for Wait Reason for Wait: Inpatient Admission Chief Complaint: Ailyn is admitted for SI and ETOH withdrawal. PMH significant for Anorexia with inpatient treatment, Borderline personality disorder, Major Depressive DIsorder, Generalized anxiety disorder, previous partially accidential overdose. See initial assessment for further information. VOLUNTARY FOR INPATIENT PSYCHIATRIC STABILIZATION. Patient is appropriate in all interactions since arriving at [facility]; Pt has demonstrated appropriate coping and communication skills, has articulated his or her needs and concerns and is fully engaged during staff interactions. Safety plan has been established with patient, and care team, to adhere to patient goals, identify restrictions based on behavioral status, address nutrition, and determine allowed personal belongings, tools for hygiene and personal care. Determine level of activity including ambulation, level of supervision, visitors, and determine privileges based on behaviors and level of engagement by pt. SAFETY PLAN: 1. Will remain on suicide precautions. In Paper Clothes 2. Will remain in room under direct supervision of one-on-one staff at all times provided by [employer]; NELSY, [employer] FARMWORKER creel selector. 3. May have paper cups, plates, finger foods as well as a cardboard spoon with which to eat meals. 4. Follow [facility] Management of the Admitted Behavioral Health Patient policy. 5. Comfort bath system or may shower at nursing discretion. 6. No personal belongings 7. Visitors-No visitors at this time 8. Activities: may have coloring books, crayons, word search books, TV and other soft cart items at nursing discretion 9. Bathroom privileges 10. Phone: may make and receive calls from hospital phone only at nursing discretion. 11. Due to VOLUNTARY status, if patient wishes to leave [facility], staff will contact [facility] Crisis Screener ([phone]) and On-Call Brass Sorter ([phone]) as soon as possible. In the event of elopement, notify [place] [employer] ([phone]). Patient is currently voluntarily at [facility] and seeking inpatient admission when a bed becomes available. [facility] Frontline Pool Cleaner will continue seeking placement. Please contact the Agricultural Extension Agent Brass Sorter ([phone]) and [facility] Pool Cleaner ([phone]) for any needed changes in the Safety Plan. Safety plan has been provided to interdepartmental care team.
[2021-05-07 19:47] VITALS: BP 152/98; PULSE 68; RESP 18; TEMP 36.3; O2SAT 96
[2021-05-07] MEDS: Mirtazapine 15 MG TAB PO (22:59)
[2021-05-07] MEDS: Zolpidem 5 MG TAB PO (22:59)
[2021-05-07 23:32] VITALS: BP 130/82; PULSE 57; RESP 15; TEMP 36.6; O2SAT 97
[2021-05-08] MEDS: Folic Acid 1 MG TAB PO (08:06)
[2021-05-08] MEDS: Magnesium Oxide 400 MG TAB 800 MG PO (08:06)
[2021-05-08] MEDS: Thiamine 100 MG TAB PO (08:06)
[2021-05-08] MEDS: PARoxetine 20 MG TAB PO (08:06)
[2021-05-08] MEDS: Multivitamin TAB 1 TAB PO (08:06)
[2021-05-08 08:09] VITALS: BP 125/83; PULSE 78; RESP 16; TEMP 36.7; O2SAT 97
[2021-05-08] MEDS: Oxazepam 10 MG CAP PO (08:56)
--- NOTE | 2021-05-08 09:45 | RT.EKG_ITS ---
APPROVED REPORT Exam: Resting ECG Reason for Exam: medical clearance Patient Location: I HR:72 bpm ECG Measurements Heart Rate 72 AXIS IA 114 P 32 QRSd 74 QRS 23 QT 372 T 2 QTc 406 Conclusion Sinus rhythm...normal P axis, V-rate 60- 99 Normal Electrocardiogram
[2021-05-08 09:53] LABS: Anion Gap 5.9 mmol/L (3-11); BUN 8 mg/dL (7-18); CO2 31.1 mmol/L (21.0-32.0); CREATININE 0.9 mg/dL (0.55-1.02); Calcium 9.1 mg/dL (8.5-10.1); Chloride 105 mmol/L (98-107); Glucose 139 mg/dL (74-106); Magnesium 2.1 mg/dL (1.8-2.4); Potassium 4.2 mmol/L (3.5-5.1); Sodium 142 mmol/L (136-145)
--- NOTE | 2021-05-08 12:05 | MHPN_ITS ---
Date of service: 05/08/21 Time of Service: 10:15 Mental Health Crisis Note Presenting Issue How did you arrive at the ED and why did you come: The patient was diverted to [facility] emergency department 05.05.21 for drinking and driving. Patient requests voluntary in-patient referral for dual diagnosis of chronic depression, suicidal ideation and alcohol detoxification and is seen today via telehealth for follow- up assessment. Precipitating Factors Patient presents on hospital bed sitting up. She is fully alert and oriented to time, person, place. No memory issues noted other than those reported .11. Behavior is appropriate, attitude is calm and engaged with good eye contact. Speech is soft, unpressured, normal tone. She reports I'm doing a little better today. I just really miss my family. Affect is dysphoric, intermittently tearful. Thought process coherent and goal-oriented around seeking placement and receiving treatment. No report or presenting evidence of delusions of hallucinations. Insight and judgment appear fair. Patient reports speaking to her grandmother today, states that her grandfather is still very upset, and that she is trying to focus on 'right now' and move forward with placement. Patient denies current SI/HI/SIB, intent or plan. Disposition BEHAVIOR: Calm, appropriate EYE CONTACT: Good MOOD: A little better AFFECT: Dysphoric APPETITE: Minimal SLEEP(trouble falling/staying asleep: No reported issues Plan The patient will remain at [facility] on voluntary status and await in-patient placement for depression and ETOH dependence. She will be assessed daily by [facility] and if a suitable safety plan can be devised, including expedited appointment with therapist or any additional appropriate support measures, discharge back to the community may be considered pending presentation and discretion of screener. Contact list BR - Patient has been accepted and will [facility] Signature Clinician's Name/Title: Jhonathan Harmon [facility] Clinician / [facility]
--- NOTE | 2021-05-08 12:07 | W.PM.DS.N ---
Date of service: 05/08/21 Time of Service: 12:07 DS: Diagnosis Discharge Diagnosis (1) Depression with suicidal ideation: Status: Acute (2) Depression: Status: Chronic (3) Alcohol intoxication: Status: Resolved (4) Anorexia nervosa: Status: Chronic (5) Hypomagnesemia: Status: Resolved (6) COVID-19 ruled out by laboratory testing: Status: Ruled-out Discharge Plan Disposition Patient Disposition: [facility] Condition: Stable Discharge Details Reason For Visit: ALCOHOL WITHDRAWAL, SUICIDAL IDEATION Admit Date/Time: 05/07/21 20:00 Admit Provider: Shirin Hussein Attending Provider: Shirin Hussein Primary Care Provider: Unknown,Unknown Hospital Course Hospital Course: Ms Gaffney is a 31 year old female with PMHx of depression, anxiety d/o, anorexia nervosa and alcohol abuse, who was a patient on [facility] hospitalist service from 05/05/21 until 05/08/21 after presenting with with suicidal ideation in setting of alcohol intoxication. She had virtually no symptoms of alcohol withdrawal and got prophylactic loading with phenobarbital because she required this on her recent admission to our facility. She did endorse that her eating disorder was presently active and that she had stopped eating. She was medically cleared for psychiatric hospitalization on voluntary basis. She is eating small amount of food and does not have clinical signs of dehydration. Her magnesium was repleted and is normal on the day of discharge to the [facility] psychiatric facility. Care for patient as well as completion of her discharge summary on day of discharge took 45 minutes. Home Meds and New Rx's Prescriptions: New multivitamin [Multiple Vitamins] Tablet 1 tab PO QAM Qty: 0 RF: 0 magnesium oxide 400 mg (241.3 mg magnesium) Tablet 400 mg PO BID Qty: 0 RF: 0 mirtazapine 15 mg Tablet 15 mg PO HS Qty: 0 RF: 0 paroxetine HCl 20 mg Tablet 20 mg PO DAILY Qty: 0 RF: 0 thiamine mononitrate (vit B1) [Vitamin B-1 (mononitrate)] 100 mg Tablet 100 mg PO QAM Qty: 0 RF: 0 Continued levothyroxine 75 mcg capsule 75 mcg PO DAILY Qty: 90 RF: 3 norgestimate-ethinyl estradiol 0.18/0.215/0.25 mg-35 mcg (28) tablet 1 tab PO DAILY Qty: 84 RF: 4 norgestimate-ethinyl estradiol 0.18/0.215/0.25 mg-35 mcg (28) tablet 1 tab PO DAILY Qty: 28 RF: 2 sertraline [Zoloft] 100 mg tablet 125 mg PO DAILY RF: 0 hydroxyzine HCl 50 mg Tablet 50 mg PO BID PRN PRNQty: 60 RF: 1 Discharge Instructions Instructions: Anorexia Nervosa (DC), Abuse of Alcohol (DC), Suicide Prevention (DC) Additional Instructions: Return to the hospital with any seizures, fever, bleeding, chest pain, shortness of breath, or signs of alcohol withdrawal. Stand Alone Forms: Nursing Discharge Form Activity:: Activity as Tolerated Equipment/Supplies:: No Equipment Needed Diet:: Normal Diet Discharge Orders Discharge Orders: Discharge Order (Routine); Ordered 05/08/21 Ordered By: Shirin Hussein DS: Summary Time Spent with Patient providing and/or coordinating discharge services: Greater than 30 minutes Status at Discharge Functional status at discharge: independent ambulation Overall status at discharge: patient is progressing back to baseline Mental Status: mental status grossly normal and other (depressed mood) Speech and Movement: speech and movement normal Mood: other (depressed mood) Affect: sad Exam Narrative Exam Narrative: General: Pleasant female who is sitting in bed coloring in an adult coloring book with crayons HEENT: EOMI, MMM Heart: RRR, no m/r/g Lungs: CTAB Abdomen: soft, nontender, nondistended Extremities: no edema BLE's Psych Mental Status: mental status grossly normal and other (depressed mood) Speech and Movement: speech and movement normal Mood: other (depressed mood) Affect: sad DS: Data Vitals/I&O Vitals and I&O: Vital Signs Temperature 36.7 C 05/08/21 08:09 Temperature Source Tympanic 05/08/21 08:09 Pulse 78 05/08/21 08:09 Pulse Rhythm Regular 05/08/21 07:30 Pulse 62 05/05/21 23:40 Respiratory Rate 16 05/08/21 08:09 Respiratory Effort 05/08/21 07:30 Respiratory Depth Normal 05/08/21 07:30 Respiratory Pattern Normal 05/08/21 07:30 Blood Pressure 125/83 05/08/21 08:09 Blood Pressure Mean 68 05/05/21 23:31 Blood Pressure Position Supine 05/05/21 17:03 Pulse Oximetry 97 05/08/21 08:09 Oxygen Delivery Method Room Air 05/08/21 08:09 Oxygen Flow Rate 0 05/08/21 08:09 Pain Level 0 05/07/21 19:47 Intake & Output 05/07/21 05/08/21 05/08/21 23:59 11:59 23:59 Intake Total 490 / 1490 1120 / 1120 Output Total 900 / 2800 2600 / 2600 Balance -410 / -1310 -1480 / -1480 Weight 60.9 kg 57.6 kg Intake: IV 10 1010 1000 / 1000 Oral 480 / 480 120 / 120 Output: Urine 900 / 2800 2600 / 2600 Other: Urine Color Yellow Yellow Urine Appearance Clear Clear Urine Odor None Comment pt is up ad quirino voiding independently. pt denies issues Stool Occult Blood Negative Stool Size Small Stool Characteristics Soft Voiding Methods Toilet Data Completed and Pending Labs on day of discharge: Labs from last 24 hours 05/08/21 09:30 Sodium 142 Potassium 4.2 Chloride 105 Carbon Dioxide 31.1 Anion Gap 5.9 BUN 8 D Creatinine 0.9 Estimated GFR/1.73 m2 >= 60.00 Glucose 139 H Calcium 9.1 Magnesium 2.1 [facility] Medical History (Updated 05/08/21 @ 12:13 by Shirin Hussein MD) Anorexia nervosa (10/16/12) Inpatient treatment at [facility] from 2004 to 2009 Borderline personality disorder (11/17/12) Carpal tunnel syndrome, bilateral Eating disorder Generalized anxiety disorder Hyperlipidemia Hypothyroidism (01/08/13) Major depressive disorder Medication overdose at age 21--partly accidental, partly intentional Vitamin D deficiency Family History Mother Alcohol abuse Substance abuse Depression Father No problems noted. Sister No problems noted. Sister No problems noted. Brother No problems noted. Maternal Grandfather Heart disease Hypertension Diabetes Maternal Grandmother Hypertension Hyperlipidemia Social History Smoking/Tobacco Use Status: Never Second Hand Exposure: Yes Smoking risk assessment performed?: Yes Alcohol Intake: current Alcohol Intake frequency: 3 or more drinks per day Alcohol type: hard liquor Drug use: Never Substance use type: does not use Details: pt denies tobacco or substance abuse. States she drinks daily but denies withdrawal symptoms if she doesnt drink. Is intoxicated upon arrival, poor historian. Caregiver/Support person: No Household members: family Housing: apartment Communication Needs: None Do you need help understanding health information?: Rarely Pets and animals: Yes Sexually active: No Do you think of yourself as: straight/heterosexual Current gender identity: female What is your relationship status?: never How often do you talk on the phone with friends or family?: once per week How often do you get together with friends or relatives?: decline to answer How often do you attend oriental orthodox or judaism services?: decline to answer Do you belong to any clubs or organized social groups?: no Panel score (0-1 are the most socially isolated patients): 0 What type of physical activity do you participate in: weight lifting Duration: 60-90 minutes/day Frequency: 5-6 times per week Niru/Mormon: None Special niru needs: No Seatbelt use: always Helmet use: Yes Helmet use: always Drive intox or ride w/intox petrol tanker driver: No Do you feel safe at home: Yes Do you feel safe in your relationship?: Yes Female Reproductive History Menstrual Age of Menarche: 14 History History 0 Para Hx # Term Pregnancies Multiple births Hx # Pregnancies Ectopic pregnancies AB induced Hx Number of Living Children AB spontaneous
[2021-05-08] MEDS: Bacitracin 1 PACKET TP (12:41)
--- NOTE | 2021-05-08 12:48 | CMDISCH_ITS ---
- If Service Date Differs Date of service: 05/08/21 Time of Service: 12:48 Care Management Discharge Reason for Hospitalization: Alcohol Withdrawal Discharge Plan: Ailyn is being transferred to [facility] for inpatient treatment. - MH Services (Omit if N/A) Current MH Services: Internal [facility] - Disposition Disposition: Cost Transport via of: [facility]
--- NOTE | 2021-05-08 12:48 | PDOC.CMDIS ---
- If Service Date Differs Date of service: 05/08/21 Time of Service: 12:48 Care Management Discharge Reason for Hospitalization: Alcohol Withdrawal Discharge Plan: Ailyn is being transferred to [facility] for inpatient treatment. - MH Services (Omit if N/A) Current MH Services: Internal [facility] - Disposition Disposition: [place] Transport via of: [facility]
== END 2021-05-08 12:38 | disposition short-term general hospital (02) | DRG 885 ==
LOC: ER 23:18 → MS 05-06 00:56
PROVIDERS: Admitting Provider Internal Medicine; Emergency Provider Physician Assistant; Visit Provider Internal Medicine
DX: F33.2 Major depressive disorder, recurrent severe without psychotic features (principal); R45.851 Suicidal ideations; F50.00 Anorexia nervosa, unspecified; F10.129 Alcohol abuse with intoxication, unspecified; Z68.21 Body mass index [BMI] 21.0-21.9, adult; F60.3 Borderline personality disorder; E55.9 Vitamin D deficiency, unspecified; E03.9 Hypothyroidism, unspecified; E78.5 Hyperlipidemia, unspecified; F41.1 Generalized anxiety disorder; Z20.822 Contact with and (suspected) exposure to COVID-19; E83.42 Hypomagnesemia
CPT/HCPCS: 36415; 80048; 80053; 80307; 87635; 96361; 96365; 96366; 99291; 80320; 81003; 81015; 81025; 82607; 82746; 83735; 84100; 84439; 84443; 85025; 93005; 93010; 99220; 99224; 99231; 99239; G0378; J2560

== ENCOUNTER 2021-07-20 22:46 | Emergency (ER) | payer MEDICARE, MEDICAID, SELFPAY ==
[2021-07-20 22:55] VITALS: BP 123/85; PULSE 102; RESP 19; TEMP 36.8; O2SAT 99
--- NOTE | 2021-07-20 23:08 | ED.GENADUL_ITS ---
Discharge Plan Disposition Patient Disposition: HOME Condition: Stable Discharge Details Clinical Impression: Alcohol intoxication, Depression Primary Care Provider: Unknown,Unknown ED Provider: Rico Park Home Meds and New Rx's Prescriptions: No Action levothyroxine 75 mcg capsule 75 mcg PO DAILY Qty: 90 RF: 3 hydroxyzine HCl 50 mg Tablet 50 mg PO BID PRN PRNQty: 60 RF: 1 escitalopram oxalate [Lexapro] 20 mg Tablet 40 mg PO DAILY RF: 0 aripiprazole [Abilify] 20 mg Tablet 20 mg PO DAILY RF: 0 multivitamin [Multiple Vitamins] Tablet 1 tab PO QAM Qty: 0 RF: 0 magnesium oxide 400 mg (241.3 mg magnesium) Tablet 400 mg PO BID Qty: 0 RF: 0 mirtazapine 15 mg Tablet 15 mg PO HS Qty: 0 RF: 0 paroxetine HCl 20 mg Tablet 20 mg PO DAILY Qty: 0 RF: 0 thiamine mononitrate (vit B1) [Vitamin B-1 (mononitrate)] 100 mg Tablet 100 mg PO QAM Qty: 0 RF: 0 Discharge Instructions Instructions: Depression (ED), Alcohol Intoxication (ED) Additional Instructions: Please stop abusing alcohol. Please return to the emergency department immediately for any worsening or new concerning symptoms including thoughts of self-harm or suicidality. [place] [facility] [facility] [place] as well as [facility] [place]. Referrals: [facility] [place] [Outside] [facility] [facility] [place]Outside] Medical Decision Making <Robbie Crump MD - Last Filed: 07/21/21 03:28> 31 yo female with hx of borderline personality disorder and depression comes in with complaint that she doesn't want to be alive anymore and than she feels she doesn't deserve to be alive tonight. She states she has felt this way for months, has self cut her forearms otherwise hasn't attempted to harm herself and doesn't give a specific plans to harm herself. She states she drank a lot tonight, and she is homeless and had nowhere to go so went to the police station and they brought her here. She has clear speech though does smell of alcohol. She is caox4 with no focal motor or sensation deficits. She has superficial abrasions to the forearms, none deep enough to require sutures. Will obtain labs and when sober have her speak with mental health pt stable, alcohol level 191 so will need to be sober and near zero for [facility] evaluation. Differential Diagnosis Differential Diagnosis: depression, si, alcohol abuse Medical Records Medical records reviewed: Yes I reviewed the patient's medical records. Lab Data Lab results reviewed: Yes I reviewed the patient's lab results. <Rico Park MD - Last Filed: 07/21/21 10:33> Patient was seen by crisis screener and had full evaluation and determined to be safe for discharge with discharge plan to spend today with her grandparents. [facility] will follow up with the patient. Grandfather is willing and able assist. Patient is agreeable with this plan. Patient sober by labs and clinically. Patient was encouraged to return to the ER immediately should she have any worsening or new concerning symptoms including suicidality or thoughts of self- harm. I have contacted [facility] and requested that they follow-up with the patient. HPI <Robbie Crump MD - Last Filed: 07/21/21 03:28> General Mode of arrival: ambulatory . Date/Time Provider Initiated Documentation: 07/20/21 22:46 . Limitations to Documentation: no limitations . Information obtained by: patient . History of Present Illness 31 year old F presents to the emergency department with the chief complaint of depression, described as moderate, Patient started experiencing this month(s) (3) and it has been constant. No relieving factors improve symptom(s), No exacerbating factors reported . Patient did receive the following treatments prior to arrival, none Related Data Home Medications Medication Instructions Recorded Confirmed levothyroxine 75 mcg capsule 75 mcg PO DAILY #90 cap 06/14/20 05/05/21 hydroxyzine HCl 50 mg PO BID PRN PRN #60 tab 04/22/21 05/05/21 magnesium oxide 400 mg PO BID #0 tab 05/08/21 mirtazapine 15 mg PO HS #0 tab 05/08/21 multivitamin [Multiple Vitamins] 1 tab PO QAM #0 tab 05/08/21 paroxetine HCl 20 mg PO DAILY #0 tab 05/08/21 thiamine mononitrate (vit B1) 100 mg PO QAM #0 tab 05/08/21 [Vitamin B-1 (mononitrate)] aripiprazole [Abilify] 20 mg PO DAILY 07/21/21 07/21/21 escitalopram oxalate [Lexapro] 40 mg PO DAILY 07/21/21 07/21/21 Previous Rx's Medication Instructions Recorded levothyroxine 75 mcg capsule 75 mcg PO DAILY #90 cap 06/14/20 hydroxyzine HCl 50 mg PO BID PRN PRN #60 tab 04/22/21 magnesium oxide 400 mg PO BID #0 tab 05/08/21 mirtazapine 15 mg PO HS #0 tab 05/08/21 multivitamin [Multiple Vitamins] 1 tab PO QAM #0 tab 05/08/21 paroxetine HCl 20 mg PO DAILY #0 tab 05/08/21 thiamine mononitrate (vit B1) 100 mg PO QAM #0 tab 05/08/21 [Vitamin B-1 (mononitrate)] Allergies Allergy/AdvReac Type Severity Reaction Status Date / Time No Known Allergies Allergy Unverified 05/05/21 17:12 General Stated Complaint: PsychEval RUDDY: 2 Review of Systems <Robbie Crump MD - Last Filed: 07/21/21 03:28> All systems reviewed & are unremarkable except as noted in HPI and below Constitutional Constitutional: Denies chills, Denies fever(s) and Denies weakness Cardiovascular Cardiovascular: Denies chest pain and Denies dyspnea Respiratory Respiratory: Denies cough and Denies dyspnea Gastrointestinal Gastrointestinal: Denies abdominal pain, Denies nausea and Denies vomiting Neurologic Neurologic: Denies weakness PFS <Robbie Crump MD - Last Filed: 07/21/21 03:28> All Active Problems (Updated 07/21/21 @ 03:28 by Robbie Crump MD) Alcohol intoxication (Acute) Discharge planning issues (Acute) DVT prophylaxis (Acute) Depression with suicidal ideation (Acute) Depression (Chronic) Major depression (Chronic) Deliberate self-cutting (Acute) Eating disorder (Chronic) Hypothyroidism (Chronic 01/08/13) Major depressive disorder (Chronic) Hyperlipidemia (Chronic) Generalized anxiety disorder (Chronic) Anorexia nervosa (Chronic 10/16/12) Inpatient treatment at [facility] from 2004 to 2009 Borderline personality disorder (Chronic 11/17/12) Surveillance for control, oral contraceptives (Chronic) Medical History (Updated 07/21/21 @ 03:28 by Robbie Crump MD) Medication overdose at age 21--partly accidental, partly intentional Vitamin D deficiency Family History Mother Alcohol abuse Substance abuse Depression Father No problems noted. Sister No problems noted. Sister No problems noted. Brother No problems noted. Maternal Grandfather Heart disease Hypertension Diabetes Maternal Grandmother Hypertension Hyperlipidemia Social History Smoking/Tobacco Use Status: Never Second Hand Exposure: Yes Smoking risk assessment performed?: Yes Alcohol Intake: current Alcohol Intake frequency: 3 or more drinks per day Alcohol type: hard liquor Drug use: Never Substance use type: does not use Details: pt denies tobacco or substance abuse. States she drinks daily but denies withdrawal symptoms if she doesnt drink. Is intoxicated upon arrival, poor historian. Caregiver/Support person: No Household members: family Housing: apartment Communication Needs: None Do you need help understanding health information?: Rarely Pets and animals: Yes Sexually active: No Do you think of yourself as: straight/heterosexual Current gender identity: female What is your relationship status?: never How often do you talk on the phone with friends or family?: once per week How often do you get together with friends or relatives?: decline to answer How often do you attend orthodoxy or jehovah's witness services?: decline to answer Do you belong to any clubs or organized social groups?: no Panel score (0-1 are the most socially isolated patients): 0 What type of physical activity do you participate in: weight lifting Duration: 60-90 minutes/day Frequency: 5-6 times per week Niru/Yazdanism: None Special niru needs: No Seatbelt use: always Helmet use: Yes Helmet use: always Drive intox or ride w/intox straddle bug driver: No Do you feel safe at home: Yes Do you feel safe in your relationship?: Yes Female Reproductive History Menstrual Age of Menarche: 14 History History 0 Para Hx # Term Pregnancies Multiple births Hx # Pregnancies Ectopic pregnancies AB induced Hx Number of Living Children AB spontaneous Exam <Robbie Crump MD - Last Filed: 07/21/21 03:28> Const General: no acute distress Orientation: alert HENMT Head: normal to inspection Ears: external ears normal General nose exam: external nose normal Mouth: moist mucous membranes Eyes General: appearance normal, both eyes and all related structures Neck Neck: normal visual inspection Resp Effort & Inspection: normal respiratory effort and able to speak in complete sentences Cardio Rate: regular rate Skin General skin exam: no rashes or lesions noted Neuro General: patient alert and patient oriented x3 Extrem General: normal to inspection Psych Appearance: disheveled Course <Robbie Crump MD - Last Filed: 07/21/21 03:28> Vital Signs Vital signs: Vital Signs Temperature 36.8 C 07/20/21 22:55 Pulse 102 H 07/20/21 22:55 Respiratory Rate 19 07/20/21 22:55 Blood Pressure 123/85 07/20/21 22:55 Pulse Oximetry 99 07/20/21 22:55 Temperature 36.8 C 07/20/21 22:55 Temperature Source Temporal Artery Scan 07/20/21 22:55 Pulse 102 H 07/20/21 22:55 Respiratory Rate 19 07/20/21 22:55 Respiratory Effort 07/20/21 23:02 Blood Pressure 123/85 07/20/21 22:55 Blood Pressure Position Supine 07/20/21 22:55 Pulse Oximetry 99 07/20/21 22:55 Oxygen Delivery Method Room Air 07/20/21 22:55 Oxygen Flow Rate 0 07/20/21 22:55 Pain Level 0 07/20/21 22:55 Sign Out <Robbie Crump MD - Last Filed: 07/21/21 03:28> Sign Out Data: Sign Out Comment: depressed/si and intoxicated, will need reassessment when sober and can speak with mental health Last updated by Robbie Crump MD at 07/21/21 03:07 PAWSS <Robbie Crump MD - Last Filed: 07/21/21 03:28> Have you Been Recently Intoxicated or Drunk Within the Last 30 days?: Yes Have you Ever Experienced Previous Episodes of Alcohol Withdrawal?: No Have you ever Experienced Withdrawal Seizures?: No Have you ever Experienced Delirium Tremens(DT)s?: No Have you ever undergone Alcohol Rehabilitation Treatment (i.e, inpt ot outpatient treatment programs)?: No Have you ever Experienced Blackouts?: No Have you ever Combined Alcohol with other Downers within the last 90 days?: No Have you ever Combined Alcohol with any other Substance of Abuse during the last 90 days?: No Positive Blood Alcohol level on Presentation? [PCS.BAL]: Yes Evidence of Increased Autonomic Activity (i.e. HR>120, tremor, sweating, agitation, nausea)?: No Result: 2
[2021-07-20 23:25] LABS: Abs Immature Grans 0.01 10^3/uL (0.0-0.06); Absolute Basophil Count 0.02 10^3/uL (0.0-0.2); Absolute Eosinophil Count 0.13 10^3/uL (0.0-0.7); Absolute Lymphocyte Count 2.27 10^3/uL (1.2-3.4); Absolute Monocyte Count 0.23 10^3/uL (0.1-0.8); Absolute Neutrophil Count 3.26 10^3/uL (1.2-6.7); Basophils % 0.3; Eosinophils % 2.2; HGB 14.1 g/dL (11.2-15.7); Immature Grans % 0.2; Lymphocytes % 38.3; MCH 31.1 pg (27.0-33.0); MCHC 34.4 % (32.0-36.0); MCV 90.5 fL (80-95); MPV 8.8 fL (8.0-11.0); Monocytes % 3.9; Neutrophils % 55.1; Nucleated RBC 0 %; Platelet Count 175 10^3/uL (130-400); RBC 4.53 10^6/uL (3.93-5.22); RDW 12.3 % (11.7-14.6); RDW-SD 40.2 fL; WBC 5.92 10^3/uL (4.4-10.8)
[2021-07-20] MEDS: LORazepam 1 MG TAB PO (23:29)
[2021-07-20 23:41] LABS: Salicylate < 2.8 mg/dL (<2.8)
[2021-07-20 23:47] LABS: ALT 21 U/L (14-59); AST 19 U/L (15-37); Alkaline Phosphatase 67 U/L (46-116); Anion Gap 8.2 mmol/L (3-11); BUN 15 mg/dL (7-18); Bilirubin, Total 0.2 mg/dL (0.2-1.0); CO2 27.8 mmol/L (21.0-32.0); CREATININE 0.8 mg/dL (0.55-1.02); Chloride 105 mmol/L (98-107); ETHANOL BLOOD 191.7 mg/dL (<10); Glucose 108 mg/dL (74-106); Sodium 141 mmol/L (136-145); TSH (W/Ref FT4) 3.81 uIU/mL (0.36-3.74); Total Protein 7.5 g/dL (6.4-8.2)
[2021-07-21 00:02] LABS: Acetaminophen < 2 ug/mL (10-30)
[2021-07-21 00:20] LABS: FREE T4 0.77 ng/dL (0.76-1.46)
[2021-07-21 06:40] LABS: Bilirubin Negative (Negative); Blood Negative (Negative); Clarity Sl Cloudy (Clear); Glucose Negative (Negative); Ketones Negative (Negative); Leukocyte Esterase Negative (Negative); Nitrite Negative (Negative); Specific Gravity >= 1.030 (1.005-1.025); Urobilinogen 0.2 EU/dL (Up TO 0.2); pH 5.5 (5-8)
[2021-07-21 06:49] LABS: *AMPHETAMINES SCREEN URINE Negative (Negative); *BARBITURATES SCREEN URINE Negative (Negative); *BENZODIAZEPINES SCREEN URINE Negative (Negative); Cannabinoids THC Positive (Negative); Cocaine Screen,Urine Negative (Negative); METHADONE URINE SCREEN Negative (Negative); OPIATES URINE SCREEN Negative (Negative)
[2021-07-21 06:56] LABS: Tricyclic Antidepressants Negative (Negative)
[2021-07-21 07:05] LABS: ETHANOL BLOOD 56.5 mg/dL (<10)
[2021-07-21 08:05] VITALS: BP 119/71; PULSE 98; RESP 18; TEMP 36.9; O2SAT 96
--- NOTE | 2021-07-21 10:15 | NUR.NOTE ---
Nursing Note: [facility] Professor Of Biological Sciences Salome Chacon called. Was given the patient's phone number, she stated that they have been in touch with her before and that she will probably reach out to her this after noon. Kaylene Beck
== END 2021-07-21 10:38 | disposition home or self-care (01) ==
PROVIDERS: Emergency Medicine; Emergency Provider Student in an Organized Health Care Education/Training Program
DX: F32.A Depression, unspecified (principal); F10.220 Alcohol dependence with intoxication, uncomplicated; Y90.6 Blood alcohol level of 120-199 mg/100 ml; F60.3 Borderline personality disorder; Z59.02 Unsheltered homelessness; S50.812A Abrasion of left forearm, initial encounter; S50.811A Abrasion of right forearm, initial encounter; X78.9XXA Intentional self-harm by unspecified sharp object, initial encounter; F10.20 Alcohol dependence, uncomplicated
CPT/HCPCS: 36415; 80053; 80307; 81025; 99285; 80320; 80329; 81003; 84439; 84443; 85025; 99283

== ENCOUNTER 2021-08-24 12:14 | Outpatient (REF) | payer MEDICARE, MEDICAID, SELFPAY ==
[2021-08-24 15:13] LABS: Hemoglobin A1C 4.7 % (<5.7)
[2021-08-24 15:26] LABS: Calculated LDL 138 mg/dL (<100); Cholesterol 209 mg/dL (<200); HDL Cholesterol 58 mg/dL (40-60); TSH (W/Ref FT4) 0.46 uIU/mL (0.36-3.74); Triglyceride 66 mg/dL (<150)
[2021-08-27 10:26] LABS: Hepatitis C Ab w Rflx HCV PCR Negative (Negative)
[2021-08-27 10:49] LABS: HIV-1/2 Ag & Ab Screen Negative (Negative)
== END 2021-08-24 12:15 | disposition home or self-care (01) ==
LOC: NCHCN 12:14
PROVIDERS: Visit Provider Family Medicine
DX: E03.9 Hypothyroidism, unspecified (principal); E78.5 Hyperlipidemia, unspecified; Z11.4 Encounter for screening for human immunodeficiency virus [HIV]; Z11.59 Encounter for screening for other viral diseases; Z13.1 Encounter for screening for diabetes mellitus; Z68.21 Body mass index [BMI] 21.0-21.9, adult
CPT/HCPCS: 80061; 86803; 87389; 83036; 84443

== ENCOUNTER 2021-11-12 10:19 | Outpatient (REF) | payer MEDICARE, MEDICAID, SELFPAY ==
--- NOTE | 2021-11-12 09:45 | PAPFT_PTH ---
PATIENT: Ailyn Gaffney LOC: [facility]#:[id number] AGE/SX: 31/F ROOM: RE11/12/[address]: Clair Thomas : 1990 BED: DIS: 11/12/2021 SPEC #: [id number] RECD: 11/12/21 17:37 STATUS: LEO REQ #: [id number] HEIDI: 11/12/21 09:[address]: Clair Thomas DEPT: [facility] Cytology RECD BY: Stacey De La Cruz ENTERED: 11/12/21 17:38 SP TYPE: PAPFT OTHR DR: Unknown,Unknown Tissues: 1 - CX/ENDOCX FOR PAP SMEARS Procedures: PAP THIN PREP/UVM Screening Comments: [id number] (CHLAMYDIA/GC)
[2021-11-13 14:46] LABS: Chlamydia Result Negative (Negative); GC Result Negative (Negative)
== END 2021-11-12 10:20 | disposition home or self-care (01) ==
LOC: NCHCN 10:19
PROVIDERS: Visit Provider Family Medicine
DX: Z11.3 Encounter for screening for infections with a predominantly sexual mode of transmission (principal); Z12.4 Encounter for screening for malignant neoplasm of cervix
CPT/HCPCS: 87491; 87591; 88142

== ENCOUNTER 2022-03-21 16:35 | Outpatient (REF) | payer MEDICARE, MEDICAID, SELFPAY ==
[2022-03-21 16:41] LABS: TSH (W/Ref FT4) 3.84 uIU/mL (0.36-3.74)
[2022-03-21 17:06] LABS: FREE T4 0.97 ng/dL (0.76-1.46)
== END 2022-03-21 16:36 | disposition home or self-care (01) ==
LOC: NCHCN 16:35
PROVIDERS: Visit Provider Family Medicine
DX: E03.9 Hypothyroidism, unspecified (principal)
CPT/HCPCS: 84439; 84443

== ENCOUNTER 2022-07-26 16:55 | Outpatient (REF) | payer MEDICARE, MEDICAID, SELFPAY ==
[2022-07-26 15:44] LABS: TSH (W/Ref FT4) 3.58 uIU/mL (0.36-3.74)
== END 2022-07-26 16:56 | disposition home or self-care (01) ==
LOC: NCHCN 16:55
PROVIDERS: Visit Provider Family Medicine
DX: E03.9 Hypothyroidism, unspecified (principal)
CPT/HCPCS: 84443

== ENCOUNTER 2022-11-05 18:59 | Inpatient (IN) | payer MEDICARE, MEDICAID, SELFPAY ==
[2022-11-05] VITALS (45 sets, daily range): BP systolic 69–140; BP diastolic 38–92; PULSE 49–114; RESP 12–20; TEMP 36.2; O2SAT 90–100
--- NOTE | 2022-11-05 18:45 | RT.EKG_ITS ---
APPROVED REPORT Exam: Resting ECG Reason for Exam: overdose Patient Location: E HR:84 bpm ECG Measurements Heart Rate 84 AXIS MN 113 P 47 QRSd 78 QRS 58 QT 404 T 47 QTc 477 Conclusion Sinus rhythm...normal P axis, V-rate 60- 99 Physician: no stemi
--- NOTE | 2022-11-05 18:56 | W.ED.GENAD ---
Discharge Plan Disposition Condition: Critical Discharge Details Chief Complaint: OD/Poison Clinical Impression: Overdose Primary Care Provider: Unknown,Unknown ED Provider: Christian Mason Home Meds and New Rx's Prescriptions: No Action levothyroxine 75 mcg capsule 75 mcg PO DAILY Qty: 90 3RF Rx Instructions: / take one capsule daily hydroxyzine HCl 50 mg Tablet 50 mg PO BID PRN PRNQty: 60 1RF escitalopram oxalate [Lexapro] 20 mg Tablet 40 mg PO DAILY aripiprazole [Abilify] 20 mg Tablet 20 mg PO DAILY multivitamin [Multiple Vitamins] Tablet 1 tab PO QAM Qty: 0 0RF magnesium oxide 400 mg (241.3 mg magnesium) Tablet 400 mg PO BID Qty: 0 0RF mirtazapine 15 mg Tablet 15 mg PO HS Qty: 0 0RF paroxetine HCl 20 mg Tablet 20 mg PO DAILY Qty: 0 0RF thiamine mononitrate (vit B1) [Vitamin B-1 (mononitrate)] 100 mg Tablet 100 mg PO QAM Qty: 0 0RF Medical Decision Making 32-year-old female with a past medical history of alcohol abuse, depression, high cholesterol, anorexia nervosa, borderline personality disorder, who presents today for mental status change and overdose. History is limited, but per EMS report the patient has been drinking a fair amount of alcohol today, and then was found this evening unresponsive. Per EMS there was an empty bottle of Seroquel, trazodone, and clonidine. When EMS arrived the patient was unresponsive and per EMS did not have a gag reflex. Patient was then brought to the ER for further management. Family members are not here. Their phone numbers go to or busy lines. No history from patient. On arrival to the ED patient was saturating at 90%. No supplemental oxygen was on. Patient was transitioned to the stretcher, she was noted to have a GCS of 4-5 with some spontaneous movements the pain which were difficult to determine whether they were withdrawing or flexing to pain. Pupils were reactive. Sputum was noted in the front of the patient's mouth and the patient had an absent gag reflex. Supplemental oxygen was immediately applied, the decision was made to intubate for airway protection. Patient was intubated without complication or difficulty. EMS did have the names of 3 of the medications the patient took, but did not have dosing for any of the medications. They did not bring the pill bottles with them. We attempted to contact the patient's caregivers at home, but all phone lines were or busy and no calls were returned after multiple messages were left. His dosing knowledge is certainly critical as well as complete understanding of amount, we did asked the correctional officer to retrieve the bottles for review and inspection. [place] kindly agreed and went back to the patient's house and got the bottles. Patient had trazodone 100 mg tablets, it was 4 months old and empty. Patient also had clonidine 0.3 mg tablets which was also in old prescription and if being used appropriately should have been empty, the patient also had a bottle of Quetiapine 100 mg tablets, and if she had been using this appropriately should have had 20 tablets left. Patient also had N-acetylcysteine 600 mg tablets which should have been emptied by this point. EKG was performed and demonstrates sinus rhythm with a rate of 84, QRS of 78, QTc is 477. Blood pressure stable at this point, heart rate stable at this point. Concern obviously for overdose from all 4 of these potential medications, as well as other potential etiologies. We will get a CT scan of the head, portable chest x-ray shows an in place endotracheal tube. We will evaluate for toxicologic complications, monitor closely and reassess. I did contact poison control and discussed the case with them and side for fluids and continued close monitoring they have no additional acute recommendations at this time. We will wait for results to return. Case will be signed out to my colleague Dr. Crump for follow-up on labs, imaging, reassessment, and consultation with toxicology. HPI General Date/Time Provider Initiated Documentation: 11/05/22 19:09. HPI Narrative: 32-year-old female with a past medical history of alcohol abuse, depression, high cholesterol, anorexia nervosa, borderline personality disorder, who presents today for mental status change and overdose. History is limited, but per EMS report the patient has been drinking a fair amount of alcohol today, and then was found this evening unresponsive. Per EMS there was an empty bottle of Seroquel, trazodone, and clonidine. When EMS arrived the patient was unresponsive and per EMS did not have a gag reflex. Patient was then brought to the ER for further management. Family members are not here. Their phone numbers go to or busy lines. No history from patient. Related Data Home Medications Medication Instructions Recorded Confirmed levothyroxine 75 mcg capsule 75 mcg PO DAILY #90 caps 06/14/20 07/21/21 hydroxyzine HCl 50 mg tablet 50 mg PO BID PRN PRN #60 tabs 04/22/21 07/21/21 magnesium oxide 400 mg (241.3 mg 400 mg PO BID #0 tabs 05/08/21 07/21/21 magnesium) tablet mirtazapine 15 mg tablet 15 mg PO HS #0 tabs 05/08/21 07/21/21 multivitamin (Multiple Vitamins 1 tab PO QAM #0 tabs 05/08/21 07/21/21 tablet) paroxetine HCl 20 mg tablet 20 mg PO DAILY #0 tabs 05/08/21 07/21/21 thiamine mononitrate (vit B1) 100 100 mg PO QAM #0 tabs 05/08/21 07/21/21 mg tablet (Vitamin B-1 (mononitrate)) aripiprazole 20 mg tablet (Abilify) 20 mg PO DAILY 07/21/21 07/21/21 escitalopram oxalate 20 mg tablet 40 mg PO DAILY 07/21/21 07/21/21 (Lexapro) Previous Rx's Medication Instructions Recorded levothyroxine 75 mcg capsule 75 mcg PO DAILY #90 caps 06/14/20 hydroxyzine HCl 50 mg tablet 50 mg PO BID PRN PRN #60 tabs 04/22/21 magnesium oxide 400 mg (241.3 mg 400 mg PO BID #0 tabs 05/08/21 magnesium) tablet mirtazapine 15 mg tablet 15 mg PO HS #0 tabs 05/08/21 multivitamin (Multiple Vitamins 1 tab PO QAM #0 tabs 05/08/21 tablet) paroxetine HCl 20 mg tablet 20 mg PO DAILY #0 tabs 05/08/21 thiamine mononitrate (vit B1) 100 100 mg PO QAM #0 tabs 05/08/21 mg tablet (Vitamin B-1 (mononitrate)) Allergies Allergy/AdvReac Type Severity Reaction Status Date / Time No Known Allergies Allergy Unverified 05/05/21 17:12 General RUDDY: 2 Review of Systems All systems reviewed & are unremarkable except as noted in HPI and below PFSH All Active Problems (Updated 11/05/22 @ 20:00 by Christian Mason DO) Overdose (Acute) Discharge planning issues (Acute) DVT prophylaxis (Acute) Depression with suicidal ideation (Acute) Depression (Chronic) Major depression (Chronic) Deliberate self-cutting (Acute) Eating disorder (Chronic) Hypothyroidism (Chronic 01/08/13) Major depressive disorder (Chronic) Hyperlipidemia (Chronic) Generalized anxiety disorder (Chronic) Anorexia nervosa (Chronic 10/16/12) Inpatient treatment at [facility] from 2004 to 2009 Borderline personality disorder (Chronic 11/17/12) Surveillance for control, oral contraceptives (Chronic) Medical History Medication overdose at age 21--partly accidental, partly intentional Vitamin D deficiency Family History Mother Alcohol abuse Substance abuse Depression Father No problems noted. Sister No problems noted. Sister No problems noted. Brother No problems noted. Maternal Grandfather Heart disease Hypertension Diabetes Maternal Grandmother Hypertension Hyperlipidemia Social History Smoking/Tobacco Use Status: Never Second Hand Exposure: Yes Smoking risk assessment performed?: Yes Alcohol Intake: current Alcohol Intake frequency: 3 or more drinks per day Alcohol type: hard liquor Drug use: Never Substance use type: does not use Details: pt denies tobacco or substance abuse. States she drinks daily but denies withdrawal symptoms if she doesnt drink. Is intoxicated upon arrival, poor historian. Caregiver/Support person: No Household members: family Housing: apartment Communication Needs: None Do you need help understanding health information?: Rarely Pets and animals: Yes Sexually active: No Do you think of yourself as: straight/heterosexual Current gender identity: female What is your relationship status?: never How often do you talk on the phone with friends or family?: once per week How often do you get together with friends or relatives?: decline to answer How often do you attend lutheran or worship services?: decline to answer Do you belong to any clubs or organized social groups?: no Panel score (0-1 are the most socially isolated patients): 0 What type of physical activity do you participate in: weight lifting Duration: 60-90 minutes/day Frequency: 5-6 times per week Niru/Advent: None Special niru needs: No Seatbelt use: always Helmet use: Yes Helmet use: always Drive intox or ride w/intox paratransit driver: No Do you feel safe at home: Yes Do you feel safe in your relationship?: Yes Female Reproductive History Menstrual Age of Menarche: 14 History History 0 Para Hx # Term Pregnancies Multiple births Hx # Pregnancies Ectopic pregnancies AB induced Hx Number of Living Children AB spontaneous Exam Narrative Exam Narrative: 1.Const: Well-nourished, Well-developed, appearing stated age 2.Eyes: PERRL, pupils are slightly dilated but reactive. No conjunctival injection, and symmetrical lids. 3.ENT: Atraumatic external nose and ears. Moist MM. Neck: Symmetric, trachea midline, No thyromegaly. 4.CVS: +S1/S2, No murmurs or gallops. Peripheral pulses 2+ and equal in all extremities. Brisk capillary refill in all extremities. 5.RESP: Sonorous respirations, mild sputum collection at the front of the mouth. Spontaneous respirations present. No wheezes or rhonchi. 6.GI: Soft, Nontender/Nondistended, No hepatosplenomegaly. No guarding or rebound. 7.MSK: Normocephalic/Atraumatic, Extremities w/o deformity or ttp No cyanosis or clubbing, present amount of small spontaneous movements in all extremities. 8.Skin: Warm, Dry. No rashes, multiple chronic old well-healed self-inflicted laceration scars of the upper and lower extremities. No acute lacerations. 9.Neuro: GCS of 4 10.Psych: (AAO) x0 Procedures Intubation Time out performed: Yes sedative: Etomidate Mg Given: 20 paralytic: Rocuronium Mg Given: 100 Laryngoscope: fiberoptic video scope ET Tube Size: 7 ET Tube Uncuffed: No Tube Secured Depth (cm): 20 Tube Secured Location: teeth Tube Placement Confirmation: visualized tube passing through cords, equal breath sounds bilaterally and no breath sounds over epigastrum Patient Tolerated Procedure: well and no complications Intubation Complications: none Critical Care Time Critical Care Time Critical Care Time: Yes Total Critical Care Time: 60 Attestation: Upon my evaluation, this patient had a high probability of imminent or life-threatening deterioration, which required my direct attention, intervention, and personal management. I have personally provided 45 minutes of critical care time exclusive of time spent on separately billable procedures. Time includes review of laboratory data, radiology results, discussion with consultants, and monitoring for potential decompensation. Interventions were performed as documented.
--- NOTE | 2022-11-05 19:00 | DI.RAD_ITS ---
Exam(s) XR PORTABLE CHEST AP POST LINE EXAM: XR PORTABLE CHEST AP POST LINE CLINICAL HISTORY: Overdose. TECHNIQUE: 2D digital imaging was performed. COMPARISON: No exams were available for comparison FINDINGS: Single AP portable view. Distal tip of the endotracheal tube is 5 cm above the khoa. There is an NG tube in the stomach. T here is air in the stomach. Heart size is upper normal. The mediastinum is not widened. Lungs are clear. No infiltrates nor obvious pleural effusions. IMPRESSION: No acute pulmonary findings on this single AP portable view of the chest. Distal tip of the ET tube is 5 cm above the khoa DATA REPOSITORY: RADIATION DOSE DELIVERED:
--- NOTE | 2022-11-05 19:00 | DI.CT_ITS ---
Exam(s) CT HEAD WO EXAM: CT HEAD WO CLINICAL HISTORY: overdose, altered. TECHNIQUE: Imaging Protocol: Axial computed tomography images with coronal and sagittal reformatted images were created and reviewed COMPARISON: No exams were available for comparison FINDINGS: There are no skull fractures. There is no fluid in the visualized paranasal sinuses. There is no evidence of intracranial hemorrhage, mass effect, or shift of midline structures. There are no extra-axial fluid collections. The ventricles are not enlarged or shifted and there is no blo od within the ventricular system nor within the basal cisterns. IMPRESSION: No acute intracranial findings on this noninfused CT scan of the brain. Clinically indicated follow-up MRI with diffusion imaging can be performed for added sensitivity and specificity. RADIATION DOSE DELIVERED: 753.75mGy.cm Total DLP DATA REPOSITORY: All CT scans at this facility are submitted to the National Radiology Data Registry (NRDR) Dose Index Registry (DIR) with the [employer] (A[employer]). RADIATION OPTIMIZATION: All CT scans at this facility use at least one of these dose optimization te chniques: automated exposure control; mA and/or kV adjustment per patient size (includes targeted exa ms where dose is matched to clinical indication); or iterative reconstruction.
[2022-11-05] MEDS: Etomidate 20 MG/10 ML VIAL IVP (19:07)
[2022-11-05] MEDS: Rocuronium 50 MG/5 ML SYR 100 MG IVP (19:08)
[2022-11-05] MEDS: PROPOFOL 500 MG/50 ML BTL 7.44 MG IV (19:33)
--- NOTE | 2022-11-05 19:47 | DI.VRAD_ITS ---
PROCEDURE INFORMATION: Exam: CT Head Without Contrast Exam date and time: 11/05/2022 7:31 PM Age: 32 years old Clinical indication: Overdose, altered TECHNIQUE: Imaging protocol: Computed tomography of the head without contrast. Radiation optimization: All CT scans at this facility use at least one of these dose optimization techniques: automated exposure control; mA and/or kV adjustment per patient size (includes targeted exams where dose is matched to clinical indication); or iterative reconstruction. COMPARISON: No relevant prior studies available. FINDINGS: Brain: No intracranial hemorrhage or extra-axial fluid collection. No evidence of mass effect or midline shift. [place]-white matter differentiation is intact. Cerebral ventricles: No ventriculomegaly. Paranasal sinuses: Unremarkable. No fluid levels. Mastoid air cells: Unremarkable. Bones/joints: No acute calvarial fracture. Soft tissues: Scalp soft tissues are unremarkable. IMPRESSION: No acute intracranial pathology. If continued clinical suspicion for anoxic ischemia, recommend further evaluation with MRI brain. Dictated and Authenticated by: Sandeep Reno MD. Ordering:NGA Gonzales MD
--- NOTE | 2022-11-05 19:53 | DI.VRAD_ITS ---
PROCEDURE INFORMATION: Exam: XR Chest Exam date and time: 11/05/2022 7:15 PM Age: 32 years old Clinical indication: Other: Overdose; Additional info: Overdose, ng tube, TECHNIQUE: Imaging protocol: Radiologic exam of the chest. Views: 1 view. COMPARISON: No relevant prior studies available. FINDINGS: Tubes, catheters and devices: Enteric tube tip terminates inferior to the lower border the examination, terminating within the stomach. Endotracheal tube tip terminates 4.8 cm above the khoa. Lungs: No focal areas of consolidation. Pleural spaces: No pleural effusion. No pneumothorax. Heart/Mediastinum: Cardiac and mediastinal silhouettes are unremarkable. Bones/joints: No acute osseus lesion or fracture. IMPRESSION: 1. Enteric tube tip terminates inferior to the lower border the examination, terminating within the stomach. 2. Endotracheal tube tip terminates 4.8 cm above the khoa. Dictated and Authenticated by: Sandeep Reno MD. Ordering:DOMINIC Larson MD
[2022-11-05 19:55] LABS: Source Nasal/Nares
[2022-11-05 20:02] LABS: Abs Immature Grans 0.01 10^3/uL (0.0-0.06); Absolute Basophil Count 0.01 10^3/uL (0.0-0.2); Absolute Eosinophil Count 0.04 10^3/uL (0.0-0.7); Absolute Lymphocyte Count 1.71 10^3/uL (1.2-3.4); Absolute Monocyte Count 0.21 10^3/uL (0.1-0.8); Absolute Neutrophil Count 3.53 10^3/uL (1.2-6.7); Basophils % 0.2; Eosinophils % 0.7; HCT 41.7 % (36.0-46.0); HGB 14.4 g/dL (11.2-15.7); Immature Grans % 0.2; MCH 31.9 pg (27.0-33.0); MCHC 34.5 % (32.0-36.0); MCV 92 fL (80-95); MPV 9.3 fL (8.0-11.0); Monocytes % 3.8; Neutrophils % 64.1; Platelet Count 143 10^3/uL (130-400); RBC 4.52 10^6/uL (3.93-5.22); RDW 12.1 % (11.7-14.6); RDW-SD 41.2 fL; WBC 5.51 10^3/uL (4.4-10.8)
[2022-11-05] MEDS: Normal Saline 1,000 ML 1000 ML IV (20:05)
[2022-11-05 20:10] LABS: Bilirubin Negative (Negative); Blood Negative (Negative); Clarity Clear (Clear); Glucose Negative (Negative); Ketones Negative (Negative); Leukocyte Esterase Negative (Negative); Nitrite Negative (Negative); Specific Gravity <= 1.005 (1.005-1.025); Urobilinogen 0.2 mg/dL (Up to 0.2); pH 5.5 (5-8)
[2022-11-05 20:16] LABS: HCG Qual (Urine) Negative
[2022-11-05 20:22] LABS: Creatine Kinase 129 U/L (26-192)
[2022-11-05 20:24] LABS: ALT 36 U/L (14-59); AST 29 U/L (15-37); Alkaline Phosphatase 60 U/L (46-116); Anion Gap 9.7 mmol/L (3-11); BUN 15 mg/dL (7-18); Bilirubin, Total 0.3 mg/dL (0.2-1.0); CO2 28.3 mmol/L (21.0-32.0); CREATININE 0.8 mg/dL (0.55-1.02); Calcium 8.6 mg/dL (8.5-10.1); Chloride 106 mmol/L (98-107); ETHANOL BLOOD 216.4 mg/dL (<10); Estimated GFR 101.59 (mL/min/1.73m2); Glucose 116 mg/dL (74-106); Magnesium 2.1 mg/dL (1.8-2.4); Potassium 3.2 mmol/L (3.5-5.1); Salicylate < 2.8 mg/dL (<2.8); Sodium 144 mmol/L (136-145); Total Protein 7.5 g/dL (6.4-8.2)
[2022-11-05 20:25] LABS: Acetaminophen < 2 ug/mL (10-30)
[2022-11-05 20:27] LABS: *AMPHETAMINES SCREEN URINE Negative (Negative); *BARBITURATES SCREEN URINE Negative (Negative); *BENZODIAZEPINES SCREEN URINE Negative (Negative); Cannabinoids THC Negative (Negative); Cocaine Screen,Urine Negative (Negative); METHADONE URINE SCREEN Negative (Negative); OPIATES URINE SCREEN Negative (Negative)
[2022-11-05 20:28] LABS: Tricyclic Antidepressants Negative (Negative)
[2022-11-05 20:34] LABS: TSH (W/Ref FT4) 10.13 uIU/mL (0.36-3.74)
[2022-11-05 20:35] LABS: COVID-19 PCR Negative (Negative)
[2022-11-05 20:38] LABS: BE -1 mmol/L (-2-3); HCO3 24 mmol/L (22-26); pCO2 41 mmHg (35-45); pH 7.38 (7.35-7.45); pO2 187 mmHg (80-105); sO2 99 % (95-98); tCO2 22 mmol/L (23-27)
[2022-11-05 20:40] LABS: FIO2 35 %; Site Right Radial
[2022-11-05 20:57] LABS: FREE T4 1.14 ng/dL (0.76-1.46)
--- NOTE | 2022-11-05 21:03 | HPE_ITS ---
Date of service: 11/05/22 Time of Service: 21:03 Assessment and Plan Assessment and plan (1) Overdose: Status: Acute Assessment and plan: polypharmacy OD including the possibility of clonidine, levothyroxine, trazadone, Lexapro, quetiapine less likely as her Rx was on 08/22/22 of #90 which if taken as prescribed would leave her w/ about 15 tablets left. Supportive care w/ iv fluids, ventilator support; monitor her QTC, repeat her VBG, BMP and APAP level. If hypotension continues then may need to put on vasopressors. Hypotension complicated by her propofol drip which was going at 50 mc/kg/minute when I entered the room. I have asked nursing to wean this back to light sedation. Critical care time spent interviewing and examining the patient, reviewing studies, discussing case with patient's nurse and consulting physicians was 60 minutes (2) Alcohol intoxication: Status: Resolved Qualifiers: Complication of substance-induced condition: with unspecified complication Qualified Code(s): F10.929 - Alcohol use, unspecified with intoxication, unspecified (3) Major depression: Status: Chronic Assessment and plan: once she is extubated, we will have mental health consult on her. History of Present Illness History of Present Illness Chief Complaint: medication overdose Narrative: 32-year-old female with a past medical history of alcohol abuse, depression, high cholesterol, anorexia nervosa, borderline personality disorder, who presents today for mental status change and overdose.? History is limited, but per EMS report the patient has been drinking a fair amount of alcohol today, and then was found this evening unresponsive.? Per EMS there was an empty bottle of Seroquel, trazodone, and clonidine.? When EMS arrived the patient was unresponsive and per EMS did not have a gag reflex.? Patient was then brought to the ER for further management.? Upon arrival the patient had a GCS of 4 to 5 and absent gag reflex and was not on supplemental oxygen on arrival. ED personnel applied supplemental oxygen but then promptly proceeded to intubation to protect her airway. EMS did not bring her bottles in with them but [facility] retrieved them and found bottles for trazadone 100 mg tablets that was 4 months old and empty, clonidine 0.3 mg tablets which was old and empty, quetiapine 100 mg tablets, empty but if taken appropriately should have had 20 tablets left, NAC 600 mg tablets which should have been empty if taken appropriately. Review of her external med hx shows that she had the following Rx filled: clonidine 0.3 mg #30 on 11/05/22, levothyroxine 75 mcg #90 on 10/16/22, trazadone 100 mg #30 on 10/15/22, escitalopram 20 mg two daily, #60 on 10/15/22, naltrexone 50 mg #30 on 09/29, quetiapine fumarate 100 mg 390 on 08/22/22; Ability was last filled for #0 on 05/04/22 and NAC #60 (15 days worth) on 12/31/21. Labs included: CBC, CMP, UA, TSH, UDS; EKG, CT head. Labs demonstrated unr emarkable CBC, CMP low potassium 3.2, normal LFT, renal function, glucose 116. TSH high at 10.13 w/ normal FT4 1.14, normal UA. UDS negative except for AMOL 216. salicylate leve <2.8 mg/dL and acetaminophen level <2 mcg/mL. EKG ?sinus rhythm with a rate of 84, QRS of 78, QTc is 477. CT head non-contrast: no acute findings. Post intubation ABG 7.38, pO2 187, pCO2 41, on FIO2 35%. Patient is being admitted to ICU for airway protection/support while her sedative wear off. Telemetry monitoring and EKG to monitor her QTC. Will repeat electrolytes and APAP level tonight, patient was given potassium replacement in the ED. Continue iv fluids overnight. Propofol drip initiated while in the ER, can transition to Precedex and hopefully extubate in the morning. Review of Systems Unobtainable due to endotracheal tube and Unobtainable due to mental status [facility], [facility] All Active Problems Overdose (Acute) Discharge planning issues (Acute) DVT prophylaxis (Acute) Depression with suicidal ideation (Acute) Depression (Chronic) Major depression (Chronic) Deliberate self-cutting (Acute) Eating disorder (Chronic) Hypothyroidism (Chronic 01/08/13) Major depressive disorder (Chronic) Hyperlipidemia (Chronic) Generalized anxiety disorder (Chronic) Anorexia nervosa (Chronic 10/16/12) Inpatient treatment at [facility] in [place] and [facility] from 2004 to 2009 Borderline personality disorder (Chronic 11/17/12) Surveillance for control, oral contraceptives (Chronic) Medical History Medication overdose at age 21--partly accidental, partly intentional Vitamin D deficiency Family History Mother Alcohol abuse Substance abuse Depression Father No problems noted. Sister No problems noted. Sister No problems noted. Brother No problems noted. Maternal Grandfather Heart disease Hypertension Diabetes Maternal Grandmother Hypertension Hyperlipidemia Social History Smoking/Tobacco Use Status: Never Second Hand Exposure: Yes Smoking risk assessment performed?: Yes Alcohol Intake: current Alcohol Intake frequency: 3 or more drinks per day Alcohol type: hard liquor Drug use: Never Substance use type: does not use Details: pt denies tobacco or substance abuse. States she drinks daily but denies withdrawal symptoms if she doesnt drink. Is intoxicated upon arrival, poor historian. Caregiver/Support person: No Household members: family Housing: apartment Communication Needs: None Do you need help understanding health information?: Rarely Pets and animals: Yes Sexually active: No Do you think of yourself as: straight/heterosexual Current gender identity: female What is your relationship status?: never How often do you talk on the phone with friends or family?: once per week How often do you get together with friends or relatives?: decline to answer How often do you attend yazdanism or sikh services?: decline to answer Do you belong to any clubs or organized social groups?: no Panel score (0-1 are the most socially isolated patients): 0 What type of physical activity do you participate in: weight lifting Duration: 60-90 minutes/day Frequency: 5-6 times per week Niru/Sabianist: None Special niru needs: No Seatbelt use: always Helmet use: Yes Helmet use: always Drive intox or ride w/intox interstate bus driver: No Do you feel safe at home: Yes Do you feel safe in your relationship?: Yes Female Reproductive History Menstrual Age of Menarche: 14 History History 0 Para Hx # Term Pregnancies Multiple births Hx # Pregnancies Ectopic pregnancies AB induced Hx Number of Living Children AB spontaneous Meds Allergies and Home Medications Allergies Allergy/AdvReac Type Severity Reaction Status Date / Time No Known Allergies Allergy Unverified 05/05/21 17:12 Home Medications Medication Instructions Recorded Confirmed Type levothyroxine 75 mcg capsule 75 mcg PO DAILY #90 caps 06/14/20 07/21/21 Rx hydroxyzine HCl 50 mg tablet 50 mg PO BID PRN PRN #60 tabs 04/22/21 07/21/21 Rx magnesium oxide 400 mg (241.3 mg 400 mg PO BID #0 tabs 05/08/21 07/21/21 Rx magnesium) tablet mirtazapine 15 mg tablet 15 mg PO HS #0 tabs 05/08/21 07/21/21 Rx multivitamin (Multiple Vitamins 1 tab PO QAM #0 tabs 05/08/21 07/21/21 Rx tablet) paroxetine HCl 20 mg tablet 20 mg PO DAILY #0 tabs 05/08/21 07/21/21 Rx thiamine mononitrate (vit B1) 100 100 mg PO QAM #0 tabs 05/08/21 07/21/21 Rx mg tablet (Vitamin B-1 (mononitrate)) aripiprazole 20 mg tablet (Abilify) 20 mg PO DAILY 07/21/21 07/21/21 History escitalopram oxalate 20 mg tablet 40 mg PO DAILY 07/21/21 07/21/21 History (Lexapro) Exam Const General: healthy appearing and well developed Nutritional Appearance: average body habitus Orientation: obtunded Limitations: altered mental status [facility] Head: normal to inspection, no palpable skull fracture, normocephalic, atraumatic, no acral cyanosis and no contusions Ears: external ears normal and TM's normal bilaterally General nose exam: external nose normal, nares normal and no nasal discharge Face and sinus: normal facial exam Mouth: oral mucosae normal, lip normal and tongue normal Teeth and gingiva: dentition normal Neck Neck: normal visual inspection, no lymphadenopathy, trachea midline, supple and no JVD Thyroid: diffusely enlarged Carotids: normal carotid upstroke Lymphatic: no lymphadenopathy noted Chest Chest: normal inspection of the chest and normal palpation of entire chest wall Cardio Jugular venous pressure: no JVD Palpation: normal PMI Rate: bradycardic Rhythm: regular rhythm Heart Sounds: S1 normal, S2 normal, normal, physiologic split S2, no click, no gallops, no murmurs and no rubs Pulses: brachial pulses present, radial pulses present, femoral pulses present, popliteal pulses present, posterior tibial pulses present, dorsalis pedis present and normal peripheral pulses GI Inspection: normal to inspection Palpation: soft and no hepatosplenomegaly Percussion: normal to percussion Auscultation: hypoactive bowel sounds Back/Spine/Pelvis Cervical Spine: normal cervical lordosis Thoracic/Lumbar Spine: thoracic and lumbar spine normal to inspection Skin General skin exam: elasticity normal, turgor normal and scars (old, healed cutting scars over both arms) Lesions: no lesions Rashes: no rashes Trauma: no lacerations or abrasions Wounds: no wounds Hair: normal Nails: normal Other: tatoo over her back Neuro DTR's: Lt Triceps: 0, Rt Biceps: 0, Lt Biceps: 0, Rt Patellar: 0, Lt Patellar: 0, Rt Ankle: 0 and Lt Ankle: 0 Plantar Reflexes: Downgoing: bilateral Comatose Patient: no decerebrate rigidity, no decorticate rigidity and response to noxious stimuli absent Pupils: Mid position: bilateral and Sluggish: bilateral Extrem General: normal to inspection, capillary refill normal, no joint enlargement and no clubbing, cyanosis or edema Psych Appearance: well kempt Mental Status: other Speech and Movement: other Mood: other Affect: other Attitude: other Thought Process: other Thought Content: other Other: patient is comatose, nonresponsive to tactile/noxious stimulation Results Imaging Chest x-ray: report reviewed (FINDINGS: Tubes, catheters and devices: Enteric tube tip terminates inferior to the lower border the examination, terminating within the stomach. Endotracheal tube tip terminates 4.8 cm above the khoa. Lungs: No focal areas of consolidation. Pleural spaces: No pleural effusion. No pneumothorax. H) and image reviewed Additional studies: CT head, noncontrast demonstrated the following: FINDINGS: Brain: No intracranial hemorrhage or extra-axial fluid collection. No evidence of mass effect or midline shift. [place]-white matter differentiation is intact. Cerebral ventricles: No ventriculomegaly. Paranasal sinuses: Unremarkable. No fluid levels. Mastoid air cells: Unremarkable. Bones/joints: No acute calvarial fracture. Soft tissues: Scalp soft tissues are unremarkable. IMPRESSION: No acute intracranial pathology. If continued clinical suspicion for anoxic ischemia, recommend further evaluation with MRI brain. Dictated and Authenticated by: Sandeep Reno MD. EKG: image reviewed Labs 11/05/22 19:02 11/05/22 19:02 Labs: Laboratory Results - last 24 hr 11/05/22 11/05/22 11/05/22 19:02 19:02 19:02 WBC 5.51 RBC 4.52 Hgb 14.4 Hct 41.7 MCV 92 MCH 31.9 MCHC 34.5 RDW 12.1 Plt Count 143 MPV 9.3 Immature Gran % 0.2 Neutrophils % 64.1 Lymphocytes % 31.0 Monocytes % 3.8 Eosinophils % 0.7 Basophils % 0.2 Nucleated RBC % 0.0 Absolute Neutrophils 3.53 Absolute Lymphocytes 1.71 Absolute Monocytes 0.21 Absolute Eosinophils 0.04 Absolute Basophils 0.01 ABG Sample Site ABG pH ABG pCO2 ABG pO2 ABG HCO3 ABG Total CO2 ABG O2 Saturation ABG Base Excess FiO2 Sodium 144 Potassium 3.2 L Chloride 106 Carbon Dioxide 28.3 Anion Gap 9.7 BUN 15 Creatinine 0.8 Est GFR (CKD-EPI 2020) 101.59 Glucose 116 H Calcium 8.6 Magnesium 2.1 Total Bilirubin 0.3 AST 29 ALT 36 Alkaline Phosphatase 60 Creatine Kinase Total Protein 7.5 Albumin 4.0 TSH Free T4 Urine Color Urine Clarity Urine pH Ur Specific [place] Urine Protein Urine Ketones Urine Blood Urine Nitrite Urine Bilirubin Urine Urobilinogen Ur Leukocyte Esterase Urine Glucose Urine HCG, Qual Salicylates < 2.8 Urine Opiates Screen Urine Methadone Screen Acetaminophen < 2 Ur Barbiturates Screen Ur Tricyclics Screen Ur Amphetamines Screen U Benzodiazepines Scrn Urine Cocaine Screen Ur THC Screen Ethyl Alcohol 216.4 H COVID-19 Source SARS-CoV-2 (PCR) 11/05/22 11/05/22 11/05/22 19:02 19:02 19:02 WBC RBC Hgb Hct MCV MCH MCHC RDW Plt Count MPV Immature Gran % Neutrophils % Lymphocytes % Monocytes % Eosinophils % Basophils % Nucleated RBC % Absolute Neutrophils Absolute Lymphocytes Absolute Monocytes Absolute Eosinophils Absolute Basophils ABG Sample Site ABG pH ABG pCO2 ABG pO2 ABG HCO3 ABG Total CO2 ABG O2 Saturation ABG Base Excess FiO2 Sodium Potassium Chloride Carbon Dioxide Anion Gap BUN Creatinine Est GFR (CKD-EPI 2020) Glucose Calcium Magnesium Total Bilirubin AST ALT Alkaline Phosphatase Creatine Kinase 129 Total Protein Albumin TSH 10.13 H Free T4 1.14 Urine Color Urine Clarity Urine pH Ur Specific [place] Urine Protein Urine Ketones Urine Blood Urine Nitrite Urine Bilirubin Urine Urobilinogen Ur Leukocyte Esterase Urine Glucose Urine HCG, Qual Salicylates Urine Opiates Screen Negative Urine Methadone Screen Negative Acetaminophen Ur Barbiturates Screen Negative Ur Tricyclics Screen Negative Ur Amphetamines Screen Negative U Benzodiazepines Scrn Negative Urine Cocaine Screen Negative Ur THC Screen Negative Ethyl Alcohol COVID-19 Source SARS-CoV-2 (PCR) 11/05/22 11/05/22 11/05/22 19:02 19:50 20:29 WBC RBC Hgb Hct MCV MCH MCHC RDW Plt Count MPV Immature Gran % Neutrophils % Lymphocytes % Monocytes % Eosinophils % Basophils % Nucleated RBC % Absolute Neutrophils Absolute Lymphocytes Absolute Monocytes Absolute Eosinophils Absolute Basophils ABG Sample Site Right Radial ABG pH 7.38 ABG pCO2 41 ABG pO2 187 H ABG HCO3 24 ABG Total CO2 22 L ABG O2 Saturation 99 H ABG Base Excess -1 FiO2 35 Sodium Potassium Chloride Carbon Dioxide Anion Gap BUN Creatinine Est GFR (CKD-EPI 2020) Glucose Calcium Magnesium Total Bilirubin AST ALT Alkaline Phosphatase Creatine Kinase Total Protein Albumin TSH Free T4 Urine Color Yellow Urine Clarity Clear Urine pH 5.5 Ur Specific [place] <= 1.005 Urine Protein Negative Urine Ketones Negative Urine Blood Negative Urine Nitrite Negative Urine Bilirubin Negative Urine Urobilinogen 0.2 Ur Leukocyte Esterase Negative Urine Glucose Negative Urine HCG, Qual Negative Salicylates Urine Opiates Screen Urine Methadone Screen Acetaminophen Ur Barbiturates Screen Ur Tricyclics Screen Ur Amphetamines Screen U Benzodiazepines Scrn Urine Cocaine Screen Ur THC Screen Ethyl Alcohol COVID-19 Source Nasal/Nares SARS-CoV-2 (PCR) Negative Last Vital Signs Pulse 63 11/05/22 20:13 Resp 14 11/05/22 20:14 BP 110/79 11/05/22 20:13 Pulse Ox 100 11/05/22 20:14 PAWSS Have you Been Recently Intoxicated or Drunk Within the Last 30 days?: Unable to Obtain Have you Ever Experienced Previous Episodes of Alcohol Withdrawal?: Unable to Obtain Have you ever Experienced Withdrawal Seizures?: Unable to Obtain Have you ever Experienced Delirium Tremens(DT)s?: Unable to Obtain Have you ever undergone Alcohol Rehabilitation Treatment (i.e, inpt ot outpatient treatment programs)?: Unable to Obtain Have you ever Experienced Blackouts?: Unable to Obtain Have you ever Combined Alcohol with other Downers within the last 90 days?: Unable to Obtain Have you ever Combined Alcohol with any other Substance of Abuse during the last 90 days?: Unable to Obtain Positive Blood Alcohol level on Presentation? [PCS.BAL]: Unable to Obtain Evidence of Increased Autonomic Activity (i.e. HR>120, tremor, sweating, agitation, nausea)?: Unable to Obtain Time Spent Time spent with Patient: 55-74 minutes Time was spent: preparing to see the patient(eg.review tests), ordering medications,tests, procedures, referring, communicating with other health special needs caregiver (Discussion with Dr. Crump), indepentently interpreting results and care coordination
--- NOTE | 2022-11-05 21:05 | W.EDPROG ---
Date of service: 11/05/22 Time of Service: 21:06 Medical Decision Making pts labs without emergent findings, has etoh over 200, negative uds. Vitals stable, abg reassuring. She is withdrawing all extremities to pain, no signs of trauma to the head, imaging unremarkable. Will discuss with hospitalist about admission Sign Out Sign Out Data: Sign Out Comment: Overdose, please refer to chart, currently intubated, pending laboratory work-up, reassessment, and recontact with toxicology. Last updated by Christian Mason DO at 11/05/22 20:10 Discharge Plan Disposition Patient Disposition: Admit to [facility] Condition: Critical Discharge Details Chief Complaint: OD/Poison Clinical Impression: Overdose Primary Care Provider: Unknown,Unknown ED Provider: Robbie Crump [place] Meds and New Rx's Prescriptions: No Action levothyroxine 75 mcg capsule 75 mcg PO DAILY Qty: 90 3RF Rx Instructions: / take one capsule daily hydroxyzine HCl 50 mg Tablet 50 mg PO BID PRN PRNQty: 60 1RF escitalopram oxalate [Lexapro] 20 mg Tablet 40 mg PO DAILY aripiprazole [Abilify] 20 mg Tablet 20 mg PO DAILY multivitamin [Multiple Vitamins] Tablet 1 tab PO QAM Qty: 0 0RF magnesium oxide 400 mg (241.3 mg magnesium) Tablet 400 mg PO BID Qty: 0 0RF mirtazapine 15 mg Tablet 15 mg PO HS Qty: 0 0RF paroxetine HCl 20 mg Tablet 20 mg PO DAILY Qty: 0 0RF thiamine mononitrate (vit B1) [Vitamin B-1 (mononitrate)] 100 mg Tablet 100 mg PO QAM Qty: 0 0RF
[2022-11-05] MEDS: POTASSIUM CHLORIDE 20 MEQ/100 ML BAG 50 MEQ IVPB (21:20)
[2022-11-05] MEDS: Lactated Ringers 500 ML IV (22:40)
[2022-11-05 23:10] LABS: BE (Venous) -3 mmol/L (-2-3); HCO3 (Venous) 23 mmol/L (23-28); O2 Sat (Venous) 100 %; TCO2 (Venous) 21 mmol/L (24-29); pCO2 (Venous) 40 mmHg (41-51); pH (Venous) 7.36 (7.31-7.41); pO2 (Venous) 205 mmHg
[2022-11-05] MEDS: Enoxaparin 40 MG/0.4 ML SYR SC (23:20)
[2022-11-05] MEDS: Pantoprazole 40 MG VIAL IVP (23:20)
[2022-11-05] MEDS: Normal Saline Flush 10 ML SYR IVP (23:20)
[2022-11-05 23:23] LABS: Anion Gap 0.9 mmol/L (3-11); BUN 11 mg/dL (7-18); CO2 24.1 mmol/L (21.0-32.0); CREATININE 0.6 mg/dL (0.55-1.02); Calcium 7.7 mg/dL (8.5-10.1); Chloride 112 mmol/L (98-107); Estimated GFR 123.76 (mL/min/1.73m2); Glucose 111 mg/dL (74-106); Potassium 4.1 mmol/L (3.5-5.1); Sodium 137 mmol/L (136-145)
[2022-11-05 23:31] LABS: Troponin I < 50 ng/L (<or=60)
[2022-11-05 23:40] LABS: Acetaminophen < 2 ug/mL (10-30)
[2022-11-05] MEDS: Lactated Ringers 1,000 ML 100 ML IV (23:40)
[2022-11-06] VITALS (60 sets, daily range): BP systolic 90–137; BP diastolic 45–86; PULSE 46–80; RESP 11–27; TEMP 36.3–38.3; O2SAT 89–100
[2022-11-06] MEDS: PROPOFOL 500 MG/50 ML BTL 11.16 MG IV (01:00)
--- NOTE | 2022-11-06 03:05 | NUR.NOTE ---
11/06/22, 00:30-Poison control staff Ernestina called and enquired about patient's vital signs and lab report.
[2022-11-06 06:15] LABS: BE (Venous) -1 mmol/L (-2-3); HCO3 (Venous) 23 mmol/L (23-28); O2 Sat (Venous) 100 %; TCO2 (Venous) 21 mmol/L (24-29); pCO2 (Venous) 33 mmHg (41-51); pH (Venous) 7.46 (7.31-7.41); pO2 (Venous) 131 mmHg
[2022-11-06 06:19] LABS: Abs Immature Grans 0.02 10^3/uL (0.0-0.06); Absolute Basophil Count 0.03 10^3/uL (0.0-0.2); Absolute Eosinophil Count 0.07 10^3/uL (0.0-0.7); Absolute Lymphocyte Count 2.05 10^3/uL (1.2-3.4); Absolute Neutrophil Count 5.28 10^3/uL (1.2-6.7); Basophils % 0.4; Eosinophils % 0.9; HCT 34.2 % (36.0-46.0); HGB 11.5 g/dL (11.2-15.7); Immature Grans % 0.3; Lymphocytes % 26.1; MCH 31.5 pg (27.0-33.0); MCHC 33.6 % (32.0-36.0); MCV 94 fL (80-95); MPV 9.2 fL (8.0-11.0); Monocytes % 5.1; Neutrophils % 67.2; Platelet Count 104 10^3/uL (130-400); RBC 3.65 10^6/uL (3.93-5.22); RDW 12.7 % (11.7-14.6); RDW-SD 43.6 fL; WBC 7.85 10^3/uL (4.4-10.8)
[2022-11-06 06:37] LABS: ALT 22 U/L (14-59); AST 21 U/L (15-37); Albumin 2.9 g/dL (3.4-5.0); Alkaline Phosphatase 44 U/L (46-116); Anion Gap 8.8 mmol/L (3-11); BUN 9 mg/dL (7-18); Bilirubin, Total 0.3 mg/dL (0.2-1.0); CO2 25.2 mmol/L (21.0-32.0); CREATININE 0.7 mg/dL (0.55-1.02); Calcium 7.8 mg/dL (8.5-10.1); Chloride 113 mmol/L (98-107); Estimated GFR 119.24 (mL/min/1.73m2); Glucose 81 mg/dL (74-106); Potassium 3.8 mmol/L (3.5-5.1); Sodium 147 mmol/L (136-145); Total Protein 5.3 g/dL (6.4-8.2)
--- NOTE | 2022-11-06 07:00 | RT.EKG_ITS ---
APPROVED REPORT Exam: Resting ECG Reason for Exam: QTC monitoring Patient Location: I HR:51 bpm ECG Measurements Heart Rate 51 AXIS AK 132 P 16 QRSd 81 QRS 23 QT 481 T 8 QTc 444 Conclusion Sinus rhythm...normal P axis, V-rate 50- 99 Borderline T abnormalities, anterior leads...T flat or neg, V2-V4
--- NOTE | 2022-11-06 07:54 | NUR.NOTE ---
Propofol is off at this time. Pt is awake and appropriately responsive to my questions. Nursing Note:
--- NOTE | 2022-11-06 08:34 | PDOC.CMIN ---
- If Service Date Differs Date of service: 11/06/22 Time of Service: 08:35 Care Management Initial Assess REASON FOR HOSPITALIZATION:: polysubstance overdose PAST MEDICAL HISTORY/PAST SURGICAL HISTORY:: All Active Problems . Overdose (Acute). Discharge planning issues (Acute). DVT prophylaxis (Acute). Depression with suicidal ideation (Acute). Depression (Chronic). Major depression (Chronic). Deliberate self-cutting (Acute). Eating disorder (Chronic). Hypothyroidism (Chronic 01/08/13). Major depressive disorder (Chronic). Hyperlipidemia (Chronic). Generalized anxiety disorder (Chronic). Anorexia nervosa (Chronic 10/16/12). Inpatient treatment at [facility] in [place] and [facility] from 2004 to 2009. Borderline personality disorder (Chronic 11/17/12). Surveillance for control, oral contraceptives (Chronic). Medical History . Medication overdose. at age 21--partly accidental, partly intentional. Vitamin D deficiency PREVIOUS FUNCTIONAL STATUS/SOCIAL/FAMILY SUPPORTS:: Ailyn has been living in [place] with her grandparents, however shared that they may not allow her to return. She is currently unemployed and is no longer in school. Ailyn is independent at baseline. She has a long history of alcohol use disorder, depression and also has an eating disorder. for which she has received inpatient treatment in the past. CURRENT FUNCTIONAL STATUS:: Ailyn was lying in bed in the ICU when CM met with her. She was just extubated this morning and complained of a sore throat and chest pain. Her voice was hoarse and she spoke in a whisper. Ailyn shared that she has been staying with her grandparents again but verbalized that they will likely not let her return. They have not allowed her to stay with them in the past when she has been drinking. She will be screened by [facility] when medically cleared. CM asked if trhere was anything that precipitated her overdose and she responded that she could not remember. Ailyn had no HIPAA form completed for this admission and her grandmother called to see how she is doing. CM asked Ailyn if she would like to complete a HIPAA to include her grandparents. She agreed and the form was completed and placed on her chart. ADVANCE DIRECTIVES:: none on file Has patient been provided with info about the portal/API?: Yes Did the patient sign up for the portal?: No CODE STATUS:: Full Code INSURANCE COVERAGE / FINANCIAL ISSUES:: Medicare. Medicaid CURRENT HOME/COMMUNITY SERVICES/EQUIPMENT:: none PRIMARY CARE PHYSICIAN:: none POTENTIAL DISCHARGE NEEDS:: Follow up with PCP, mental health and plan of care PATIENT/FAMILY EDUCATION NEEDS:: review of discharge instructions, limitations, activity, follow up plan, discuss Ask Me Three TRANSPORTATION:: to be determined by disposition PLAN:: Ailyn will be evaluated by [facility] Crisis screeners when medically cleared. It is likely she will benefit from inpatient psychiatric treatment for depression and SI. CM will continue to support Ailyn and her discharge needs.
[2022-11-06] MEDS: Lactated Ringers 1,000 ML 100 ML IV (09:18)
[2022-11-06] MEDS: Levothyroxine 75 MCG TAB PO (10:53)
--- NOTE | 2022-11-06 13:24 | PDOC.CMSAFE ---
- If Service Date Differs Date of service: 11/06/22 Time of Service: 13:24 Care Management Safety Plan Status: Interim - Reason for Wait Reason for Wait: Medical Clearance CM will respond to assess patient after patient has been medically cleared and assessed by screener. If screener deems patient meets criteria for psychiatric stabilization CM will facilitate interdepartmental huddle with [facility] screener for safety planning considerations and meet with patient to review [facility] policy and safety plan, establish individual wishes for treatment and maintain patient rights. In the interim; please note safety plan below to guide patient care while awaiting further assessment in the ED. SAFETY PLAN: 1. Will remain on suicide precautions and in paper clothes. 2. Will remain in room under direct supervision of one-on-one staff at all times provided by NELSY, [employer] shipyard supervisor. 3. May have paper cups, plates, finger foods as well as a cardboard spoon with which to eat meals. 4. Follow [facility] Management of the Admitted Behavioral Health Patient policy. 5. Personal care: Comfort bath system only at this time. 6. Bathroom privileges: Available in room without limitation 6. No personal belongings at this time; per RN discretion. 7. No visitors at this time. 8. Phone contact limited to legal contact at this time. 9. Activities: Music tablet per RN discretion. Med/Surg: Television and remote available at RN discretion. 10. Due to VOLUNTARY status, if patient wishes to leave [facility], staff will contact [facility] Crisis Screener ([phone]) and On-Call Rubber Moulding Machine Operator ([phone]) as soon as possible. In the event of elopement, notify [facility] Police ([phone]). If deemed appropriate for inpatient psychiatric care, safety plan will be established with patient, and care team, to adhere to patient goals, identify restrictions based on behavioral status, address nutrition, and determine allowed personal belongings, tools for hygiene and personal care. As well plan will determine level of activity including ambulation, level of supervision, visitors, and determine privileges
--- NOTE | 2022-11-06 15:11 | W.PM.PROGNOT ---
Date of Service Date of service: 11/06/22 Time of Service: 15:11 Subjective Subjective Patient reports: denies diarrhea or vomiting Interval history since last seen: Now extubated (w/o complications). Sore throat. Exam Const General: well developed Nutritional Appearance: average body habitus Orientation: awake [facility] Head: normal to inspection, no palpable skull fracture, normocephalic, atraumatic, no acral cyanosis and no contusions Mouth: oral mucosae normal Teeth and gingiva: dentition normal Eyes General: appearance normal, both eyes and all related structures Sclera: sclerae normal Pupils: dilated Neck Neck: normal visual inspection, no lymphadenopathy, trachea midline, supple and no JVD Thyroid: diffusely enlarged Carotids: normal carotid upstroke Lymphatic: no lymphadenopathy noted Chest Chest: normal inspection of the chest and normal palpation of entire chest wall Resp Effort & Inspection: normal respiratory effort Auscultation: clear to auscultation bilaterally Cardio Jugular venous pressure: no JVD Palpation: normal PMI Rate: regular rate Rhythm: regular rhythm Heart Sounds: S1 normal, S2 normal, click, gallop, no murmurs and no rubs GI Inspection: normal to inspection Palpation: soft Percussion: normal to percussion Auscultation: hypoactive bowel sounds Back/Spine/Pelvis Cervical Spine: normal cervical lordosis Thoracic/Lumbar Spine: thoracic and lumbar spine normal to inspection Skin General skin exam: turgor normal and scars (old, healed cutting scars over both arms) Lesions: no lesions Rashes: no rashes Wounds: no wounds Other: tatoo over her back Neuro General: no focal motor deficits Cranial Nerves: facial strength normal DTR's: Lt Triceps: 0, Rt Biceps: 0, Lt Biceps: 0, Rt Patellar: 0, Lt Patellar: 0, Rt Ankle: 0 and Lt Ankle: 0 Plantar Reflexes: Downgoing: bilateral Comatose Patient: no decerebrate rigidity, no decorticate rigidity and response to noxious stimuli absent Pupils: Mid position: bilateral and Sluggish: bilateral Extrem General: no joint enlargement and no clubbing, cyanosis or edema Psych Appearance: well kempt Speech and Movement: other Affect: blunted and other Other: patient is comatose, nonresponsive to tactile/noxious stimulation Objective Last Vital Signs Temp 38.2 C H 11/06/22 14:06 Pulse 66 11/06/22 14:06 Resp 22 11/06/22 13:01 BP 133/78 11/06/22 13:23 Pulse Ox 97 11/06/22 14:06 Laboratory Results - last 24 hr 11/05/22 11/05/22 11/05/22 19:02 19:02 19:02 WBC 5.51 RBC 4.52 Hgb 14.4 Hct 41.7 MCV 92 MCH 31.9 MCHC 34.5 RDW 12.1 Plt Count 143 MPV 9.3 Immature Gran % 0.2 Neutrophils % 64.1 Lymphocytes % 31.0 Monocytes % 3.8 Eosinophils % 0.7 Basophils % 0.2 Nucleated RBC % 0.0 Absolute Neutrophils 3.53 Absolute Lymphocytes 1.71 Absolute Monocytes 0.21 Absolute Eosinophils 0.04 Absolute Basophils 0.01 ABG Sample Site ABG pH ABG pCO2 ABG pO2 ABG HCO3 ABG Total CO2 ABG O2 Saturation ABG Base Excess VBG pH VBG pCO2 VBG pO2 VBG HCO3 VBG Total CO2 VBG O2 Saturation VBG Base Excess FiO2 Sodium 144 Potassium 3.2 L Chloride 106 Carbon Dioxide 28.3 Anion Gap 9.7 BUN 15 Creatinine 0.8 Est GFR (CKD-EPI 2020) 101.59 Glucose 116 H Calcium 8.6 Magnesium 2.1 Total Bilirubin 0.3 AST 29 ALT 36 Alkaline Phosphatase 60 Creatine Kinase Troponin I Total Protein 7.5 Albumin 4.0 TSH Free T4 Urine Color Urine Clarity Urine pH Ur Specific [place] Urine Protein Urine Ketones Urine Blood Urine Nitrite Urine Bilirubin Urine Urobilinogen Ur Leukocyte Esterase Urine Glucose Urine HCG, Qual Salicylates < 2.8 Urine Opiates Screen Urine Methadone Screen Acetaminophen < 2 Ur Barbiturates Screen Ur Tricyclics Screen Ur Amphetamines Screen U Benzodiazepines Scrn Urine Cocaine Screen Ur THC Screen Ethyl Alcohol 216.4 H COVID-19 Source SARS-CoV-2 (PCR) 11/05/22 11/05/22 11/05/22 19:02 19:02 19:02 WBC RBC Hgb Hct MCV MCH MCHC RDW Plt Count MPV Immature Gran % Neutrophils % Lymphocytes % Monocytes % Eosinophils % Basophils % Nucleated RBC % Absolute Neutrophils Absolute Lymphocytes Absolute Monocytes Absolute Eosinophils Absolute Basophils ABG Sample Site ABG pH ABG pCO2 ABG pO2 ABG HCO3 ABG Total CO2 ABG O2 Saturation ABG Base Excess VBG pH VBG pCO2 VBG pO2 VBG HCO3 VBG Total CO2 VBG O2 Saturation VBG Base Excess FiO2 Sodium Potassium Chloride Carbon Dioxide Anion Gap BUN Creatinine Est GFR (CKD-EPI 2020) Glucose Calcium Magnesium Total Bilirubin AST ALT Alkaline Phosphatase Creatine Kinase 129 Troponin I Total Protein Albumin TSH 10.13 H Free T4 1.14 Urine Color Urine Clarity Urine pH Ur Specific [place] Urine Protein Urine Ketones Urine Blood Urine Nitrite Urine Bilirubin Urine Urobilinogen Ur Leukocyte Esterase Urine Glucose Urine HCG, Qual Salicylates Urine Opiates Screen Negative Urine Methadone Screen Negative Acetaminophen Ur Barbiturates Screen Negative Ur Tricyclics Screen Negative Ur Amphetamines Screen Negative U Benzodiazepines Scrn Negative Urine Cocaine Screen Negative Ur THC Screen Negative Ethyl Alcohol COVID-19 Source SARS-CoV-2 (PCR) 11/05/22 11/05/22 11/05/22 19:02 19:50 20:29 WBC RBC Hgb Hct MCV MCH MCHC RDW Plt Count MPV Immature Gran % Neutrophils % Lymphocytes % Monocytes % Eosinophils % Basophils % Nucleated RBC % Absolute Neutrophils Absolute Lymphocytes Absolute Monocytes Absolute Eosinophils Absolute Basophils ABG Sample Site Right Radial ABG pH 7.38 ABG pCO2 41 ABG pO2 187 H ABG HCO3 24 ABG Total CO2 22 L ABG O2 Saturation 99 H ABG Base Excess -1 VBG pH VBG pCO2 VBG pO2 VBG HCO3 VBG Total CO2 VBG O2 Saturation VBG Base Excess FiO2 35 Sodium Potassium Chloride Carbon Dioxide Anion Gap BUN Creatinine Est GFR (CKD-EPI 2020) Glucose Calcium Magnesium Total Bilirubin AST ALT Alkaline Phosphatase Creatine Kinase Troponin I Total Protein Albumin TSH Free T4 Urine Color Yellow Urine Clarity Clear Urine pH 5.5 Ur Specific [place] <= 1.005 Urine Protein Negative Urine Ketones Negative Urine Blood Negative Urine Nitrite Negative Urine Bilirubin Negative Urine Urobilinogen 0.2 Ur Leukocyte Esterase Negative Urine Glucose Negative Urine HCG, Qual Negative Salicylates Urine Opiates Screen Urine Methadone Screen Acetaminophen Ur Barbiturates Screen Ur Tricyclics Screen Ur Amphetamines Screen U Benzodiazepines Scrn Urine Cocaine Screen Ur THC Screen Ethyl Alcohol COVID-19 Source Nasal/Nares SARS-CoV-2 (PCR) Negative 11/05/22 11/05/22 11/05/22 23:00 23:00 23:00 WBC RBC Hgb Hct MCV MCH MCHC RDW Plt Count MPV Immature Gran % Neutrophils % Lymphocytes % Monocytes % Eosinophils % Basophils % Nucleated RBC % Absolute Neutrophils Absolute Lymphocytes Absolute Monocytes Absolute Eosinophils Absolute Basophils ABG Sample Site ABG pH ABG pCO2 ABG pO2 ABG HCO3 ABG Total CO2 ABG O2 Saturation ABG Base Excess VBG pH VBG pCO2 VBG pO2 VBG HCO3 VBG Total CO2 VBG O2 Saturation VBG Base Excess FiO2 Sodium 137 Potassium 4.1 Chloride 112 H Carbon Dioxide 24.1 Anion Gap 0.9 L BUN 11 Creatinine 0.6 Est GFR (CKD-EPI 2020) 123.76 Glucose 111 H Calcium 7.7 L Magnesium Total Bilirubin AST ALT Alkaline Phosphatase Creatine Kinase Troponin I < 50 Total Protein Albumin TSH Free T4 Urine Color Urine Clarity Urine pH Ur Specific [place] Urine Protein Urine Ketones Urine Blood Urine Nitrite Urine Bilirubin Urine Urobilinogen Ur Leukocyte Esterase Urine Glucose Urine HCG, Qual Salicylates Urine Opiates Screen Urine Methadone Screen Acetaminophen < 2 Ur Barbiturates Screen Ur Tricyclics Screen Ur Amphetamines Screen U Benzodiazepines Scrn Urine Cocaine Screen Ur THC Screen Ethyl Alcohol COVID-19 Source SARS-CoV-2 (PCR) 11/05/22 11/06/22 11/06/22 23:00 05:52 05:52 WBC 7.85 RBC 3.65 L Hgb 11.5 D Hct 34.2 L MCV 94 MCH 31.5 MCHC 33.6 RDW 12.7 Plt Count 104 L MPV 9.2 Immature Gran % 0.3 Neutrophils % 67.2 Lymphocytes % 26.1 Monocytes % 5.1 Eosinophils % 0.9 Basophils % 0.4 Nucleated RBC % 0.0 Absolute Neutrophils 5.28 Absolute Lymphocytes 2.05 Absolute Monocytes 0.40 Absolute Eosinophils 0.07 Absolute Basophils 0.03 ABG Sample Site ABG pH ABG pCO2 ABG pO2 ABG HCO3 ABG Total CO2 ABG O2 Saturation ABG Base Excess VBG pH 7.36 VBG pCO2 40 L VBG pO2 205 VBG HCO3 23 VBG Total CO2 21 L VBG O2 Saturation 100 VBG Base Excess -3 L FiO2 Sodium 147 H D Potassium 3.8 Chloride 113 H Carbon Dioxide 25.2 Anion Gap 8.8 BUN 9 Creatinine 0.7 Est GFR (CKD-EPI 2020) 119.24 Glucose 81 Calcium 7.8 L Magnesium Total Bilirubin 0.3 AST 21 ALT 22 Alkaline Phosphatase 44 L Creatine Kinase Troponin I Total Protein 5.3 L Albumin 2.9 L TSH Free T4 Urine Color Urine Clarity Urine pH Ur Specific [place] Urine Protein Urine Ketones Urine Blood Urine Nitrite Urine Bilirubin Urine Urobilinogen Ur Leukocyte Esterase Urine Glucose Urine HCG, Qual Salicylates Urine Opiates Screen Urine Methadone Screen Acetaminophen Ur Barbiturates Screen Ur Tricyclics Screen Ur Amphetamines Screen U Benzodiazepines Scrn Urine Cocaine Screen Ur THC Screen Ethyl Alcohol COVID-19 Source SARS-CoV-2 (PCR) 11/06/22 06:00 WBC RBC Hgb Hct MCV MCH MCHC RDW Plt Count MPV Immature Gran % Neutrophils % Lymphocytes % Monocytes % Eosinophils % Basophils % Nucleated RBC % Absolute Neutrophils Absolute Lymphocytes Absolute Monocytes Absolute Eosinophils Absolute Basophils ABG Sample Site ABG pH ABG pCO2 ABG pO2 ABG HCO3 ABG Total CO2 ABG O2 Saturation ABG Base Excess VBG pH 7.46 H VBG pCO2 33 L VBG pO2 131 VBG HCO3 23 VBG Total CO2 21 L VBG O2 Saturation 100 VBG Base Excess -1 FiO2 Sodium Potassium Chloride Carbon Dioxide Anion Gap BUN Creatinine Est GFR (CKD-EPI 2020) Glucose Calcium Magnesium Total Bilirubin AST ALT Alkaline Phosphatase Creatine Kinase Troponin I Total Protein Albumin TSH Free T4 Urine Color Urine Clarity Urine pH Ur Specific [place] Urine Protein Urine Ketones Urine Blood Urine Nitrite Urine Bilirubin Urine Urobilinogen Ur Leukocyte Esterase Urine Glucose Urine HCG, Qual Salicylates Urine Opiates Screen Urine Methadone Screen Acetaminophen Ur Barbiturates Screen Ur Tricyclics Screen Ur Amphetamines Screen U Benzodiazepines Scrn Urine Cocaine Screen Ur THC Screen Ethyl Alcohol COVID-19 Source SARS-CoV-2 (PCR) PAWSS Have you Been Recently Intoxicated or Drunk Within the Last 30 days?: Unable to Obtain Have you Ever Experienced Previous Episodes of Alcohol Withdrawal?: Unable to Obtain Have you ever Experienced Withdrawal Seizures?: Unable to Obtain Have you ever Experienced Delirium Tremens(DT)s?: Unable to Obtain Have you ever undergone Alcohol Rehabilitation Treatment (i.e, inpt ot outpatient treatment programs)?: Unable to Obtain Have you ever Experienced Blackouts?: Unable to Obtain Have you ever Combined Alcohol with other Downers within the last 90 days?: Unable to Obtain Have you ever Combined Alcohol with any other Substance of Abuse during the last 90 days?: Unable to Obtain Positive Blood Alcohol level on Presentation? [PCS.BAL]: Unable to Obtain Evidence of Increased Autonomic Activity (i.e. HR>120, tremor, sweating, agitation, nausea)?: Unable to Obtain Time Spent with Patient Time Spent with Patient: 35-49 minutes Time was spent: preparing to see the patient(eg.review tests), obtaining and/or reviewing separately otained hiistory, ordering medications,tests, procedures, referring, communicating with other health in home caregiver, indepentently interpreting results and care coordination
--- NOTE | 2022-11-06 15:24 | TELEP.MEDR_ITS ---
Date of service: 11/06/22 Time of Service: 15:24 Telepharmacy Home Med Rec Allergies Allergies: No Known Allergies Allergy (Unverified 05/05/21 17:12) Interview Person Interviewed: PATIENT Quality Quality of Interview/Accuracy of Medication List: Good Sources Sources used to compile medication list: [employer] Medication List and [facility] Changes made to Home Medication List: ADDITIONS: Seroquel 100mg HS , traxodone 100mg HS DELETIONS: Abilify, mirtazapine, thiamine, multiple vitamin, paxli, hydroxyzine CHANGES: none Additional Notes Additional Notes: there is a recent order for Clonidine 0.3mg in [facility] looks like she may have been taking this for a while she did not mention this during our conversaton Recommended Changes Recommended Changes(reason for recommendation): n/a Attestation: The home medication list is now updated to the best of my knowledge and is ready to be reconciled by the provider. Please contact the TelePharmacy Medication Reconciliation Pharmacist at for any questions.
[2022-11-06] MEDS: PHENobarbital 140 MG in Normal Saline 50 ML 100 MG IVPB (15:51)
[2022-11-06] MEDS: PHENobarbital 100 MG in Normal Saline 50 ML IVPB ×2 (20:05→22:46)
[2022-11-06] MEDS: Enoxaparin 40 MG/0.4 ML SYR SC (22:46)
[2022-11-07] VITALS (80 sets, daily range): BP systolic 64–111; BP diastolic 39–72; PULSE 43–157; RESP 6–20; TEMP 35.9–37.1; O2SAT 91–99
[2022-11-07] MEDS: Normal Saline Flush 10 ML SYR IVP ×2 (00:33→22:59)
[2022-11-07] MEDS: Lactated Ringers 1,000 ML 100 ML IV (01:08)
[2022-11-07] MEDS: Levothyroxine 75 MCG TAB PO (04:28)
[2022-11-07] MEDS: Midodrine 2.5 MG TAB 5 MG PO ×3 (10:38→21:11)
--- NOTE | 2022-11-07 12:58 | PDOC.MHCN_ITS ---
Date of service: 11/07/22 Time of Service: 12:58 PHQ-9 Over the last 2 weeks, how often have you been bothered by any of the following problems? 1. Little interest or pleasure in doing things: several days 2. Feeling down, depressed, or hopeless: nearly every day 3. Trouble falling or staying asleep, or sleeping too much: nearly every day 4. Feeling tired or having little energy: more than half the days 5. Poor appetite or overeating: more than half the days 6. Feeling bad about yourself - or that you are a failure or have let yourself and your family down: nearly every day 7. Trouble concentrating on things, such as reading the newspaper or watching television: several days 8. Moving or speaking so slowly that other people could have noticed? - Or the opposite - being so fidgety or restless that you have been moving around a lot more than usual: not at all 9. Thoughts that you would be better off or of hurting yourself in some way: several days Total score: 16 If you checked off any problems, how difficult have these problems made it for you to do your work, take care of things at home, or get along with other people?: somewhat difficult Source: Developed by Drs. Raul De La Fuente, Renea Ocasio, Killian Lora and colleagues, with an educational leif from [employer]. Suicide Severity Rate CSSRS Have you wished you were or wished you could go to sleep and not wake up?: Yes Have you actually had any thoughts of killing yourself?: Yes CSSRS2 Have you been thinking about how you might do this?: Yes Have you had these thoughts and had some intention of acting on them?: Yes Have you started to work out or worked out the details of how to kill yourself? Do you intend to carry out this plan?: No CSSRS3 Have you ever done anything, started to do anything or prepared to do anything to end your life?: Yes CSSRS4 Was this within the past three months?: Yes Screening Score Total Score: 8 Screening: Positive Mental Health Emergency Note Release [facility] release signed:: Yes Reason for Visit Ailyn was brought to the ED via ambulance on 11.05.22 after an intentional overdose of her prescription medications while she had been drinking. In the last 2 weeks has the pt presented for ES prior to today?: Unknown Client Information Client is: Adult Outpatient Well Housed: No,status: Not homeless, Unstable housing Non Suicidal Self Injury Current: No History: yes, Client has a long history of NSSI via cutting. Safety Risk/Harm to Self or Others Current Ideation to Harm Self or Others: No Risk: Does risk to harm exist?: yes. Access to means: Yes. Types of Means: Other weapons and Medication. Counseling provided: Yes Risk: Moderate Risk Duty to warn indicated: No Asssessment/Mental Status Appearance: Disheveled Attitude: Cooperative Behavior: Unremarkable Speech: Soft Affect: Flat and Cogruent with mood Mood: Sad and Depressed Thought process: Goal directed Hallucinations: No Delusions: No Attention: Unremarkable Perception: Not impaired Orientation: Fully orientated Memory: Impaired in: Recent Insight: Good Judgement: Fair Neurovegetative Symptoms Sleep: Decrease Appetitie: Decrease Interests: Decrease Energy: No change Libido: Not applicable Substance Use: ETOH dependence Do you use nicotine?: No Have you used substances in the last 7 days?: yes, ETOH daily until she blacks out Additional Issues: Assaultive/Threatening Behavior: No Medical Concerns: Yes Client engaged in active self harm w/weapon: No Threatening to run away: No Child reported abuse/neglect: No Voluntarily presenting for services: Yes Domestic violence is a concern: No Extreme Psychosis or extreme behavior is present: No Impression Client is a 32 year old, single, female who has been living with her grandparents in [facility]. Client is unsure if they will take her back because the warned her the next time she was drinking they would not. She denied any memories of actually taking the medications. She remembered she was drinking all day and came home, laid on her bed and was looking at the medications. That was her last memory until waking up in the hospital. Based on past knowledge of the client she and her younger sister grew up in an unstable home with a single mother who also struggled with substance abuse issues. The client developed a sver4e eating disorder and was in and out of [facility] and eating di sorder treatment facilities for much of her younger years. She was eventually taken into custody along with her sister later on and both eventually moved in with the maternal grandparents who were their guardians for the rest of their youth. Client has a history of NSSI and reported her last engagement was a year and a half ago. Client has been working out preparing for weight lifting tournaments. She shows good insight today and her judgment today is also good. Client reported she needs inpatient treatment as she got some good support the last time she was at the [facility] a year and a half ago. Her weight lifting, and willingness to engage in and accept treatment are her protective factors. Client's blood pressure dropped this am just before the assessment as she sat in a chair so she has become medical again. Once that is under control again the hospital will call again. Resources Reosurces reviewed and given:: [facility] Plan/Disposition Recommended Disposition: [facility] Services [facility] Services: Therapy and Therapy. Plan: Once medically cleared the client will be re-assessed for placement.? Person reported agreement to plan: Yes Reports/communication Reports: Other ([facility] powdered sugar supervisor and med provider ) Outcome discussed with: Other
--- NOTE | 2022-11-07 15:01 | PGE_ITS ---
Date of Service Date of service: 11/07/22 Time of Service: 15:01 Assessment and Plan Assessment and plan (1) Overdose: Status: Acute Assessment and plan: polypharmacy OD; she endorses Seroquel and clonidine. BP has been low; midodrine initiated and improving. Bradycardia. Likely secondary to the clonidine. Mental health has evaluated and she is agreeable to inpt treatment; referrals sent. (2) Alcohol intoxication: Status: Resolved Assessment and plan: Given phenobarbital loading dose. Stable w/o withdrawal signs/sxs. Qualifiers: Complication of substance-induced condition: with unspecified complication Qualified Code(s): F10.929 - Alcohol use, unspecified with intoxication, unspecified (3) Major depression: Status: Chronic Assessment and plan: On lexapro and quetiapine at home. Also takes trazadone nightly. Consider restarting lexapro in AM. (4) Hypothyroidism: Status: Chronic Assessment and plan: Cont levothyroxine. Subjective Subjective Patient reports: no new complaints, tolerating a regular diet (minimal intake.) and afebrile; denies nausea, vomiting or shortness of breath Exam Narrative Exam Narrative: Lying in bed. Wakens to verbal stim. Const General: well developed and well hydrated Nutritional Appearance: average body habitus Orientation: oriented x3 HENMT Head: normal to inspection, no palpable skull fracture, normocephalic, atraumatic, no acral cyanosis and no contusions Mouth: oral mucosae normal Teeth and gingiva: dentition normal Eyes General: appearance normal, both eyes and all related structures Sclera: sclerae normal Pupils: dilated Neck Neck: normal visual inspection, no lymphadenopathy, trachea midline, supple and no JVD Thyroid: diffusely enlarged Carotids: normal carotid upstroke Lymphatic: no lymphadenopathy noted Chest Chest: normal inspection of the chest and normal palpation of entire chest wall Resp Effort & Inspection: normal respiratory effort Auscultation: clear to auscultation bilaterally Cardio Jugular venous pressure: no JVD Palpation: normal PMI Rate: regular rate Rhythm: regular rhythm Heart Sounds: S1 normal, S2 normal, click, gallop, no murmurs and no rubs GI Inspection: normal to inspection Palpation: soft Percussion: normal to percussion Auscultation: hypoactive bowel sounds Back/Spine/Pelvis Cervical Spine: normal cervical lordosis Thoracic/Lumbar Spine: thoracic and lumbar spine normal to inspection Skin General skin exam: turgor normal and scars (old, healed cutting scars over both arms) Lesions: no lesions Rashes: no rashes Wounds: no wounds Other: tatoo over her back Neuro General: no focal motor deficits Cranial Nerves: facial strength normal DTR's: Lt Triceps: 0, Rt Biceps: 0, Lt Biceps: 0, Rt Patellar: 0, Lt Patellar: 0, Rt Ankle: 0 and Lt Ankle: 0 Plantar Reflexes: Downgoing: bilateral Comatose Patient: no decerebrate rigidity, no decorticate rigidity and response to noxious stimuli absent Pupils: Mid position: bilateral and Sluggish: bilateral Extrem General: no joint enlargement and no clubbing, cyanosis or edema Psych Appearance: well kempt Speech and Movement: other Affect: blunted and other Attitude: cooperative Thought Process: normal Other: patient is comatose, nonresponsive to tactile/noxious stimulation Objective Last Vital Signs Temp 37.1 C 11/07/22 11:30 Pulse 46 L 11/07/22 14:30 Resp 15 11/07/22 14:31 BP 96/58 L 11/07/22 14:30 Pulse Ox 95 11/07/22 14:31 PAWSS Have you Been Recently Intoxicated or Drunk Within the Last 30 days?: Unable to Obtain Have you Ever Experienced Previous Episodes of Alcohol Withdrawal?: Unable to Obtain Have you ever Experienced Withdrawal Seizures?: Unable to Obtain Have you ever Experienced Delirium Tremens(DT)s?: Unable to Obtain Have you ever undergone Alcohol Rehabilitation Treatment (i.e, inpt ot outpatient treatment programs)?: Unable to Obtain Have you ever Experienced Blackouts?: Unable to Obtain Have you ever Combined Alcohol with other Downers within the last 90 days?: Unable to Obtain Have you ever Combined Alcohol with any other Substance of Abuse during the last 90 days?: Unable to Obtain Positive Blood Alcohol level on Presentation? [PCS.BAL]: Unable to Obtain Evidence of Increased Autonomic Activity (i.e. HR>120, tremor, sweating, agitation, nausea)?: Unable to Obtain Time Spent with Patient Time Spent with Patient: 25-34 minutes Time was spent: preparing to see the patient(eg.review tests), ordering medications,tests, procedures, referring, communicating with other health child care center administrator, indepentently interpreting results and care coordination
--- NOTE | 2022-11-07 17:12 | CMPROGNOTE_ITS ---
- If Service Date Differs Date of service: 11/07/22 Time of Service: 17:12 Care Management Progress Note S/O: Ailyn was lying in bed when CM met with her. She responded minimally to CM, but had difficulty remaining awake during the conversation. She reported that she met with MASHA Love this morning and is agreeable to voluntary inpatient psychiatric treatment. She is not yet medically cleared. CM will continue to follow. A: Ailyn is a 32 year old female admitted to [facility] on 11/05/22 with polypharmacy overdose. P: Ailyn will be evaluated by [facility] Crisis screeners when medically cleared. It is likely she will benefit from inpatient psychiatric treatment for depression and SI. CM will continue to support Ailyn and her discharge needs.
--- NOTE | 2022-11-07 17:12 | CMSP_ITS ---
- If Service Date Differs Date of service: 11/07/22 Time of Service: 17:12 Care Management Safety Plan Status: Voluntary - Reason for Wait Reason for Wait: Medical Clearance CM will respond to assess patient after patient has been medically cleared and assessed by screener. If screener deems patient meets criteria for psychiatric stabilization CM will facilitate interdepartmental huddle with [facility] screener for safety planning considerations and meet with patient to review [facility] policy and safety plan, establish individual wishes for treatment and maintain patient rights. In the interim; please note safety plan below to guide patient care while awaiting further assessment in the ED. SAFETY PLAN: 1. Will remain on suicide precautions and in paper clothes. 2. Will remain in room under direct supervision of one-on-one staff at all times provided by NELSY, TANNING CONSULTANT banbury mixer operator. 3. May have paper cups, plates, finger foods as well as a cardboard spoon with which to eat meals. 4. Follow [facility] Management of the Admitted Behavioral Health Patient policy. 5. Personal care: Comfort bath system only at this time. 6. Bathroom privileges: Available in room without limitation 6. No personal belongings at this time; per RN discretion. 7. No visitors at this time. 8. Phone contact limited to legal contact at this time. 9. Activities: Music tablet per RN discretion. Med/Surg: Television and remote available at RN discretion. 10. Due to VOLUNTARY status, if patient wishes to leave [facility], staff will contact [facility] Crisis Screener ([phone]) and On-Call Cart Driver ([phone]) as soon as possible. In the event of elopement, notify [facility] Police ([phone]). If deemed appropriate for inpatient psychiatric care, safety plan will be established with patient, and care team, to adhere to patient goals, identify restrictions based on behavioral status, address nutrition, and determine allowed personal belongings, tools for hygiene and personal care. As well plan will determine level of activity including ambulation, level of supervision, visitors, and determine privileges
[2022-11-07] MEDS: Enoxaparin 40 MG/0.4 ML SYR SC (21:12)
[2022-11-08] VITALS (18 sets, daily range): BP systolic 95–129; BP diastolic 57–83; PULSE 43–75; RESP 11–18; TEMP 36.2–37.3; O2SAT 95–98
[2022-11-08] MEDS: Levothyroxine 75 MCG TAB PO (06:01)
[2022-11-08] MEDS: Normal Saline Flush 10 ML SYR IVP (07:57)
--- NOTE | 2022-11-08 09:05 | CMPROGNOTE_ITS ---
- If Service Date Differs Date of service: 11/08/22 Time of Service: 09:05 Care Management Progress Note S/O: Ailyn was lying in bed in the ICU when CM met with her. She is awake, pleasant and engages in conversation, minimally. She is interested in activities, so CM provided her with a word search book, crayons and a deck of cards. Per provider, she is medically cleared for [facility] screening and met with a clinician per protocol. Per [facility], Ailyn will remain at [facility] until inpatient psych treatment at an accepting facility is found. CM discussed the plan with Valentín, which she acknowledges and is agreeable. A: Ailyn is a 32 year old female admitted to [facility] on 11/05/22 with polypharmacy overdose. P: Ailyn will be evaluated by [facility] Crisis screeners when medically cleared. It is likely she will benefit from inpatient psychiatric treatment for depression and SI. CM will continue to support Ailyn and her discharge needs.
[2022-11-08 09:12] LABS: Anion Gap 4.3 mmol/L (3-11); BUN 11 mg/dL (7-18); CO2 28.7 mmol/L (21.0-32.0); CREATININE 0.8 mg/dL (0.55-1.02); Calcium 8.4 mg/dL (8.5-10.1); Chloride 106 mmol/L (98-107); Estimated GFR 101.59 (mL/min/1.73m2); Glucose 107 mg/dL (74-106); Potassium 3.7 mmol/L (3.5-5.1); Sodium 139 mmol/L (136-145)
--- NOTE | 2022-11-08 13:41 | CMSP_ITS ---
- If Service Date Differs Date of service: 11/08/22 Time of Service: 13:41 Care Management Safety Plan Status: Voluntary - Reason for Wait Reason for Wait: Inpatient Admission (Awaiting inpatient psych treatment) CM will respond to assess patient after patient has been medically cleared and assessed by screener. If screener deems patient meets criteria for psychiatric stabilization CM will facilitate interdepartmental huddle with [facility] screener for safety planning considerations and meet with patient to review [facility] policy and safety plan, establish individual wishes for treatment and maintain patient rights. SAFETY PLAN: 1. Will remain on suicide precautions and in paper clothes. 2. Will remain in room under direct supervision of one-on-one staff at all times provided by NELSY, WAREHOUSE PROCESSOR ore puncher. 3. May have paper cups, plates, finger foods as well as a cardboard spoon with which to eat meals. 4. Follow [facility] Management of the Admitted Behavioral Health Patient policy. 5. Personal care: Comfort bath system only at this time. 6. Bathroom privileges: Available in room without limitation 6. No personal belongings at this time; per RN discretion. 7. No visitors at this time. 8. Phone contact limited to legal contact at this time. 9. Activities: Music tablet, Television and remote, soft cart items such as crayons, playing cards, puzzle book at RN discretion. 10. Due to VOLUNTARY status, if patient wishes to leave [facility], staff will contact [facility] Crisis Screener ([phone]) and On-Call Scorer Helper ([phone]) as soon as possible. In the event of elopement, notify [facility] Police ([phone]). If deemed appropriate for inpatient psychiatric care, safety plan will be established with patient, and care team, to adhere to patient goals, identify restrictions based on behavioral status, address nutrition, and determine allowed personal belongings, tools for hygiene and personal care. As well plan will determine level of activity including ambulation, level of supervision, visitors, and determine privileges
--- NOTE | 2022-11-08 15:33 | MHPN_ITS ---
Date of service: 11/08/22 Time of Service: 10:45 Mental Health Emergency Note Release [facility] release signed:: Yes Reason for Visit Ailyn overdosed on her prescription medications after consuming multiple bottles of vodka. (Per client's report). In the last 2 weeks has the pt presented for ES prior to today?: Unknown Client Information Client is: Adult Outpatient Well Housed: Yes Non Suicidal Self Injury Current: No History: yes, Ailyn reports history of self cutting via razor, last time was about one year ago. Safety Risk/Harm to Self or Others Current Ideation to Harm Self or Others: No Risk: Risk: Low Risk Duty to warn indicated: No Asssessment/Mental Status Appearance: Disheveled Attitude: Cooperative Behavior: Poor impulse control Speech: Normal Affect: Cogruent with mood Mood: Stressed, Depressed and Anxious Thought process: Unremarkable Hallucinations: No evidence Delusions: No evidence Attention: Unremarkable Perception: Not impaired Orientation: Fully orientated Memory: Intact Insight: Fair Judgement: Fair Neurovegetative Symptoms Sleep: No change Appetitie: Decrease Interests: No change Energy: No change Libido: Not applicable Substance Use: Do you use nicotine?: No Have you used substances in the last 7 days?: yes, Ailyn reports her alcohol consumption has significantly increased lately due to the feeling of 'needing it'. Ailyn reports drink several bottles of vodka before taking too much of her medication. Impression Ailyn presented to [facility] via ambulance after overdosing on her prescription medications while she was consuming a large amount of alcohol. Ailyn reports a significant increase in her alcohol consumption due to feeling like she needs it. Ailyn reports her appetite is not that good, she has been sleeping okay, and has not endorsed SI since Friday. Ailyn reports she is scared for what her family may say or do as they previously told her if something like this happened again they would be all done with her. Ailyn denies HI and reports she last self injured about one year ago. Ailyn reports going to the [facility] in 2020, which she found extremely beneficial and would like to go back. Ailyn struggles to list a deterrent and than states, i guess... my family. Ailyn will wait at [facility] for voluntary treatment Plan/Disposition Recommended Disposition: Hospitalization (No beds available at this time.) facilities contacted. Plan: Ailyn will continue to wait at [facility] for voluntary treatment. Person reported agreement to plan: Yes Facilities contacted if Applicable [facility] Not accepted, No bed available [facility] Not accepted, No bed available [facility] Not accepted, No bed available, [facility] Not accepted, No bed available Reports/communication Outcome discussed with: Other (ICU nurse and care management )
--- NOTE | 2022-11-08 16:51 | W.PM.PROGNOT ---
Date of Service Date of service: 11/08/22 Time of Service: 16:51 Assessment and Plan Assessment and plan (1) Overdose: Status: Acute Assessment and plan: polypharmacy OD; she endorses Seroquel and clonidine. BP has been low; midodrine initiated and then stopped after BP improved. Bradycardia. Likely secondary to the clonidine. Mental health has evaluated and she is agreeable to inpt treatment; referrals sent and are pending. (2) Alcohol intoxication: Status: Resolved Assessment and plan: Given phenobarbital loading dose. Stable w/o withdrawal signs/sxs. Qualifiers: Complication of substance-induced condition: with unspecified complication Qualified Code(s): F10.929 - Alcohol use, unspecified with intoxication, unspecified (3) Major depression: Status: Chronic Assessment and plan: On lexapro and quetiapine at home. Also takes trazadone nightly. OK to restart trazadone. Restart lexapro at 20mg daily. (4) Hypothyroidism: Status: Chronic Assessment and plan: Cont levothyroxine. Subjective Subjective Patient reports: no new complaints and afebrile; denies diarrhea, nausea, vomiting or shortness of breath Exam Narrative Exam Narrative: Lying in bed. Wakens to verbal stim. Const General: well developed Nutritional Appearance: average body habitus Orientation: oriented x3 HENMT Head: normocephalic, atraumatic and contusion Mouth: oral mucosae normal Eyes General: appearance normal, both eyes and all related structures Sclera: sclerae normal Neck Neck: normal visual inspection, no lymphadenopathy, trachea midline, supple and no JVD Thyroid: diffusely enlarged Carotids: normal carotid upstroke Lymphatic: no lymphadenopathy noted Resp Effort & Inspection: normal respiratory effort Auscultation: clear to auscultation bilaterally Cardio Jugular venous pressure: no JVD Rate: regular rate Rhythm: regular rhythm Heart Sounds: S1 normal, S2 normal and no murmurs GI Auscultation: hypoactive bowel sounds Back/Spine/Pelvis Cervical Spine: normal cervical lordosis Thoracic/Lumbar Spine: thoracic and lumbar spine normal to inspection Skin General skin exam: scars (old, healed cutting scars over both arms) Lesions: no lesions Rashes: no rashes Other: tatoo over her back Neuro General: no focal motor deficits Cranial Nerves: facial strength normal DTR's: Lt Triceps: 0, Rt Biceps: 0, Lt Biceps: 0, Rt Patellar: 0, Lt Patellar: 0, Rt Ankle: 0 and Lt Ankle: 0 Plantar Reflexes: Downgoing: bilateral Comatose Patient: no decerebrate rigidity, no decorticate rigidity and response to noxious stimuli absent Pupils: Mid position: bilateral and Sluggish: bilateral Extrem General: no clubbing, cyanosis or edema Psych Affect: blunted Attitude: cooperative Thought Process: normal Other: patient is comatose, nonresponsive to tactile/noxious stimulation Objective Last Vital Signs Temp 37.3 C 11/08/22 08:30 Pulse 47 L 11/08/22 12:24 Resp 17 11/08/22 13:00 BP 101/57 L 11/08/22 12:24 Pulse Ox 95 11/08/22 12:24 Laboratory Results - last 24 hr 11/08/22 08:55 Sodium 139 Potassium 3.7 Chloride 106 Carbon Dioxide 28.7 Anion Gap 4.3 BUN 11 Creatinine 0.8 Est GFR (CKD-EPI 2020) 101.59 Glucose 107 H Calcium 8.4 L PAWSS Have you Been Recently Intoxicated or Drunk Within the Last 30 days?: Unable to Obtain Have you Ever Experienced Previous Episodes of Alcohol Withdrawal?: Unable to Obtain Have you ever Experienced Withdrawal Seizures?: Unable to Obtain Have you ever Experienced Delirium Tremens(DT)s?: Unable to Obtain Have you ever undergone Alcohol Rehabilitation Treatment (i.e, inpt ot outpatient treatment programs)?: Unable to Obtain Have you ever Experienced Blackouts?: Unable to Obtain Have you ever Combined Alcohol with other Downers within the last 90 days?: Unable to Obtain Have you ever Combined Alcohol with any other Substance of Abuse during the last 90 days?: Unable to Obtain Positive Blood Alcohol level on Presentation? [PCS.BAL]: Unable to Obtain Evidence of Increased Autonomic Activity (i.e. HR>120, tremor, sweating, agitation, nausea)?: Unable to Obtain Time Spent with Patient Time Spent with Patient: 25-34 minutes Time was spent: preparing to see the patient(eg.review tests), ordering medications,tests, procedures, referring, communicating with other health healthcare financial analyst and indepentently interpreting results
[2022-11-08] MEDS: Acetaminophen 500 MG TAB PO (18:42)
[2022-11-08] MEDS: traZODone 100 MG TAB PO (21:40)
[2022-11-09] VITALS (20 sets, daily range): BP systolic 86–129; BP diastolic 45–87; PULSE 45–71; RESP 18–20; TEMP 36.4–37.1; O2SAT 95–100
[2022-11-09] MEDS: Levothyroxine 75 MCG TAB PO (05:55)
[2022-11-09] MEDS: Escitalopram 20 MG TAB PO ×2 (09:24→10:24)
--- NOTE | 2022-11-09 15:27 | PDOC.MHPN2 ---
Date of service: 11/09/22 Time of Service: 15:27 PHQ-9 Over the last 2 weeks, how often have you been bothered by any of the following problems? 1. Little interest or pleasure in doing things: several days 2. Feeling down, depressed, or hopeless: nearly every day 3. Trouble falling or staying asleep, or sleeping too much: nearly every day 4. Feeling tired or having little energy: more than half the days 5. Poor appetite or overeating: more than half the days 6. Feeling bad about yourself - or that you are a failure or have let yourself and your family down: nearly every day 7. Trouble concentrating on things, such as reading the newspaper or watching television: several days 8. Moving or speaking so slowly that other people could have noticed? - Or the opposite - being so fidgety or restless that you have been moving around a lot more than usual: not at all 9. Thoughts that you would be better off or of hurting yourself in some way: several days Total score: 16 If you checked off any problems, how difficult have these problems made it for you to do your work, take care of things at home, or get along with other people?: somewhat difficult Source: Developed by Drs. Raul De La Fuente, Renea Ocasio, Killian Lora and colleagues, with an educational leif from [employer]. Suicide Severity Rate CSSRS Have you wished you were or wished you could go to sleep and not wake up?: Yes Have you actually had any thoughts of killing yourself?: Yes CSSRS2 Have you been thinking about how you might do this?: Yes Have you had these thoughts and had some intention of acting on them?: Yes Have you started to work out or worked out the details of how to kill yourself? Do you intend to carry out this plan?: No CSSRS3 Have you ever done anything, started to do anything or prepared to do anything to end your life?: Yes CSSRS4 Was this within the past three months?: Yes Screening Score Total Score: 8 Screening: Positive Mental Health Emergency Note Release [facility] release signed:: Yes Reason for Visit Ailyn was brought to the ED via ambulance on 11.05.22 after an intentional overdose of her prescription medications while she had been drinking. In the last 2 weeks has the pt presented for ES prior to today?: No Client Information Client is: Adult Outpatient Well Housed: No,status: Not homeless, Unstable housing Non Suicidal Self Injury Current: No History: yes, cutting and eating disorder Safety Risk/Harm to Self or Others Current Ideation to Harm Self or Others: Yes to self. Intent: no, has no intent. Plan: no.does not have a plan. History of suicide attempt: yes,history of suicide attempt reported. Details of previous suicide attempt: see initial assessment Risk: Does risk to harm exist?: yes. Access to means: No. Risk: Moderate Risk Duty to warn indicated: No Asssessment/Mental Status Appearance: Disheveled Attitude: Cooperative Behavior: Unremarkable Speech: Soft Affect: Cogruent with mood Mood: Sad and Depressed Thought process: Unremarkable Hallucinations: No Delusions: No Attention: Unremarkable Perception: Not impaired Orientation: Fully orientated Memory: Intact Insight: Good Judgement: Good Neurovegetative Symptoms Sleep: Decrease Appetitie: Decrease Interests: Decrease Energy: No change Substance Use: ETOH dependence Do you use nicotine?: No Have you used substances in the last 7 days?: yes, ETOH Additional Issues: Assaultive/Threatening Behavior: No Medical Concerns: No Client engaged in active self harm w/weapon: No Threatening to run away: No Child reported abuse/neglect: No Voluntarily presenting for services: Yes Domestic violence is a concern: No Extreme Psychosis or extreme behavior is present: No Impression Client is a 32 year old, single, female who has been living with her grandparents in [facility]. Client is unsure if they will take her back because the warned her the next time she was drinking they would not. She denied any memories of actually taking the medications. She remembered she was drinking all day and came home, laid on her bed and was looking at the medications. That was her last memory until waking up in the hospital. Based on past knowledge of the client she and her younger sister grew up in an unstable home with a single mother who also struggled with substance abuse issues. The client developed a sever4\e eating disorder and was in and out of [facility] and eating disorder treatment facilities for much of her younger years. She was eventually taken into custody along with her sister later on and both eventually moved in with the maternal grandparents who were their guardians for the rest of their youth. Client has a history of NSSI and reported her last engagement was a year and a half ago. Client has been working out preparing for weight lifting tournaments.? During the assessment on 11.09.22 the client is sitting on her bed, still in ICU, facing the window with the blind closed working on a word search puzzle. She stops what she is doing to meet with this clinician. She is tearful and sad about the posibility of losing her family. She owns her struggles and is trying to make things right. She reported that she feels numb. Client is still seeking a voluntary bed and although she has a preferred placement we discussed that this is unfortunately not an option at this time. She acknowledged by a shake of her head that she understood. She did agree for us to look at the LGBTQ unit at [facility]. Based on the client's endorsement of SI today and recent attempt even if unknown to her at the time, she continues to meet criteria for placement. Resources Reosurces reviewed and given:: Other Plan/Disposition Recommended Disposition: Hospitalization facilities contacted. Plan: It was reported while speaking to BR that a nurse on ICU at 11am on 11.08.2022 told the [facility] that the client was waiting for the [facility]. This was corrected as she has been declined by the [facility] and so this is not an option. Care management heard this conversation and will follow up with the appropriate people that was taking care of the client at that time. Facilities contacted if Applicable [facility] Not accepted, No bed available [facility] Not accepted, No bed available [facility] Not accepted, Other (no call back from them), [facility] Not accepted, Acuity Reports/communication Outcome discussed with: ED/Personnel
--- NOTE | 2022-11-09 15:36 | CMPROGNOTE_ITS ---
- If Service Date Differs Date of service: 11/09/22 Time of Service: 15:36 Care Management Progress Note S/O: Ailyn was sitting up on the edge of her bed when CM met with her. She stated that she is doing ok, and tearfully asked if anyone has talked to her grandmother. CM asked if she would like someone to provide an update, which she agreed to, although she does not feel comfortable talking to them right now. GEGE met with Kate [facility], who knows Ailyn well, and reported that Ailyn remains volu ntary for inpatient psychiatric treatment. [facility] has declined Ailyn due to acuity, but Kate is sending updated clinicals, asking them to reconsider, as this is Ailyn's first choice facility. [facility] asked for updated clinicals as well. Kate will contact Ailyn's grand mother and provide an update. CM will continue to follow. A: Ailyn is a 32 year old female admitted to [facility] on 11/05/22 with polypharmacy overdose. P: Ailyn is medically cleared, awaiting voluntary inpatient psychiatric admission. Referrals are pending at , [facility], , and [facility] No beds available today. Once she is accepted, CM will coordinate secure transport via [facility] [employer] Professional vs EMS. CM will continue to support Ailyn and her discharge needs.
--- NOTE | 2022-11-09 15:40 | CMSP_ITS ---
- If Service Date Differs Date of service: 11/09/22 Time of Service: 15:40 Care Management Safety Plan Status: Voluntary - Reason for Wait Reason for Wait: Inpatient Admission VOLUNTARY FOR INPATIENT PSYCHIATRIC STABILIZATION. Patient is appropriate in all interactions since arriving at [facility]; Pt has demonstrated appropriate coping and communication skills, has articulated his or her needs and concerns and is fully engaged during staff interactions. Referrals were send to [facility], [facility], [facility], and [facility] [facility] has declined due to acuity, although updated clinicals are being sent for reconsideration. Updated clinicals were also sent to today. [facility] do not have beds. Safety plan has been established with patient, and care team, to adhere to patient goals, identify restrictions based on behavioral status, address nutrition, and determine allowed personal belongings, tools for hygiene and personal care. Determine level of activity including ambulation, level of supervision, visitors, and determine privileges based on behaviors and level of engagement by pt. SAFETY PLAN: 1. Will remain on suicide precautions. In Paper Clothes 2. Will remain in room under direct supervision of one-on-one staff at all times provided by [employer]; NELSY, PREFORMING MACHINE OPERATOR roving tester laboratory. 3. May have paper cups, plates, finger foods as well as a cardboard spoon with which to eat meals. 4. Follow [facility] Management of the Admitted Behavioral Health Patient policy. 5. Comfort bath system only, shower permitted with escort at RN discretion. 6. No personal belongings-soft items permitted at RN discretion. 7. Visitors-none at this time. 8. Activities: soft cart items approved per RN discretion. 9. Bathroom privileges available in room without limitation on. 10. Phone: contact limited to family at this time, via cordless phone at RN discretion. 11. Due to VOLUNTARY status, if patient wishes to leave [facility], staff will contact [facility] Crisis Screener ([phone]) and On-Call Ophthalmic Assistant ([phone]) as soon as possible. In the event of elopement, notify [facility] Police ([phone]). Patient is currently voluntarily at [facility] and seeking inpatient admission when a bed becomes available. [facility] Frontline Lockstitch Pocket Setter will continue seeking placement. Please contact the Manager Dialysis Ophthalmic Assistant ([phone]) and [facility] Lockstitch Pocket Setter ([phone]) for any needed changes in the Safety Plan. Safety plan has been provided to interdepartmental care team.
--- NOTE | 2022-11-09 17:17 | PGE_ITS ---
Date of Service Date of service: 11/09/22 Time of Service: 17:17 Assessment and Plan Assessment and plan (1) Overdose: Status: Acute Assessment and plan: polypharmacy OD; she endorsed taking Seroquel and clonidine. BP has been low; midodrine initiated and then stopped after BP improved. Bradycardia. Likely secondary to the clonidine. HR in the 40's to 60's. No presyncopal sxs or syncope. Mental health has evaluated and she is agreeable to inpt treatment; referrals sent and are pending. (2) Alcohol intoxication: Status: Resolved Assessment and plan: Given phenobarbital loading dose. Stable w/o withdrawal signs/sxs. Qualifiers: Complication of substance-induced condition: with unspecified complication Qualified Code(s): F10.929 - Alcohol use, unspecified with intoxication, unspecified (3) Major depression: Status: Chronic Assessment and plan: On lexapro and quetiapine at home. Also takes trazadone nightly. OK to restart trazadone. Restart lexapro at 40mg daily. (4) Hypothyroidism: Status: Chronic Assessment and plan: Cont levothyroxine. Subjective Subjective Patient reports: no new complaints, tolerating a regular diet and afebrile; denies nausea, vomiting or shortness of breath Interval history since last seen: Tearful during evaluation. Planning inpt psychiatric transfer when bed available. Exam Narrative Exam Narrative: Lying in bed. Interactive. Const General: well developed Nutritional Appearance: average body habitus Orientation: oriented x3 HENMT Head: normocephalic, atraumatic and contusion Mouth: oral mucosae normal Eyes General: appearance normal, both eyes and all related structures Sclera: sclerae normal Neck Neck: normal visual inspection, no lymphadenopathy, trachea midline, supple and no JVD Thyroid: diffusely enlarged Carotids: normal carotid upstroke Lymphatic: no lymphadenopathy noted Resp Effort & Inspection: normal respiratory effort Auscultation: clear to auscultation bilaterally Cardio Jugular venous pressure: no JVD Rate: regular rate Rhythm: regular rhythm Heart Sounds: S1 normal, S2 normal and no murmurs GI Auscultation: hypoactive bowel sounds Back/Spine/Pelvis Cervical Spine: normal cervical lordosis Thoracic/Lumbar Spine: thoracic and lumbar spine normal to inspection Skin General skin exam: scars (old, healed cutting scars over both arms) Lesions: no lesions Rashes: no rashes Other: tatoo over her back Neuro General: no focal motor deficits Cranial Nerves: facial strength normal DTR's: Lt Triceps: 0, Rt Biceps: 0, Lt Biceps: 0, Rt Patellar: 0, Lt Patellar: 0, Rt Ankle: 0 and Lt Ankle: 0 Plantar Reflexes: Downgoing: bilateral Comatose Patient: no decerebrate rigidity, no decorticate rigidity and response to noxious stimuli absent Pupils: Mid position: bilateral and Sluggish: bilateral Extrem General: no clubbing, cyanosis or edema Psych Affect: blunted Attitude: cooperative Thought Process: normal Other: patient is comatose, nonresponsive to tactile/noxious stimulation Objective Last Vital Signs Temp 36.4 C L 11/09/22 15:37 Pulse 59 L 11/09/22 15:37 Resp 18 11/09/22 15:37 BP 107/69 11/09/22 15:37 Pulse Ox 99 11/09/22 15:37 PAWSS Have you Been Recently Intoxicated or Drunk Within the Last 30 days?: Unable to Obtain Have you Ever Experienced Previous Episodes of Alcohol Withdrawal?: Unable to Obtain Have you ever Experienced Withdrawal Seizures?: Unable to Obtain Have you ever Experienced Delirium Tremens(DT)s?: Unable to Obtain Have you ever undergone Alcohol Rehabilitation Treatment (i.e, inpt ot outpatient treatment programs)?: Unable to Obtain Have you ever Experienced Blackouts?: Unable to Obtain Have you ever Combined Alcohol with other Downers within the last 90 days?: Unable to Obtain Have you ever Combined Alcohol with any other Substance of Abuse during the last 90 days?: Unable to Obtain Positive Blood Alcohol level on Presentation? [PCS.BAL]: Unable to Obtain Evidence of Increased Autonomic Activity (i.e. HR>120, tremor, sweating, agitation, nausea)?: Unable to Obtain Time Spent with Patient Time Spent with Patient: <25 minutes Time was spent: preparing to see the patient(eg.review tests), referring, communicating with other health childcare worker and counseling the patient
[2022-11-09] MEDS: Polyethylene Glycol 3350 17 GM PACKET PO (20:19)
[2022-11-09] MEDS: traZODone 100 MG TAB PO (22:18)
[2022-11-10] MEDS: Levothyroxine 75 MCG TAB PO (05:34)
[2022-11-10 05:39] VITALS: BP 112/70; PULSE 50
[2022-11-10 05:43] VITALS: BP 112/70; PULSE 60; RESP 18; TEMP 37.5; O2SAT 98
[2022-11-10] MEDS: Polyethylene Glycol 3350 17 GM PACKET PO (07:38)
[2022-11-10] MEDS: Escitalopram 20 MG TAB 40 MG PO (07:38)
[2022-11-10 07:45] VITALS: BP 132/79; PULSE 65; O2SAT 99
--- NOTE | 2022-11-10 08:44 | W.PM.PROGNOT ---
Date of Service Date of service: 11/10/22 Time of Service: 08:56 Assessment and Plan Assessment and plan (1) Overdose: Status: Acute Assessment and plan: polypharmacy OD; she endorsed taking Seroquel and clonidine. BP had been low and she has had bradycardia issues but nothing severe and has not required treatment. She is now off telemetry monitoring w/ stable vital signs. She is medically cleared for transfer to inpatient psychiatric facility when a bed becomes available.. Mental health has evaluated and she is agreeable to inpt treatment; referrals sent and are pending Professional time spent interviewing and examining patient, discussion of goals of care with hospital team (care management, nursing and consulting professionals) was 20 minutes. (2) Alcohol intoxication: Status: Resolved Assessment and plan: Given phenobarbital loading dose. Stable w/o withdrawal signs/sxs. Qualifiers: Complication of substance-induced condition: with unspecified complication Qualified Code(s): F10.929 - Alcohol use, unspecified with intoxication, unspecified (3) Major depression: Status: Chronic Assessment and plan: On lexapro and quetiapine at home. Also takes trazadone nightly. OK to restart trazadone at 100 mg nightly. She is having insomnia despite this. I will give her lunesta 1 mg hs prn Restart lexapro at 40mg daily. (4) Hypothyroidism: Status: Chronic Assessment and plan: TSH 10.13 which is a little high, however her FT4 is normal at 1.14. We will continue her current dose of levothyroxine for now but her levels should be rechecked in 6 to 8 weeks to assess stability. Subjective Subjective Interval history since last seen: Patient still has suicidal thoughts but is more hopeful at getting help. She has had good experience in past [facility] mental health services and this would be her first preference but she understands that she will have to accept the first facility that has an open bed. She is agreeble to transfer to an inpatient psychiatric facility and recognizes that she needs further help and wants psychiatric treatment. She does not feel that she has the support of family. she indicated that she has a good relationship w/ her outpatient mental health counselor. she admits that she had missed outpatient appointments and got herself into a downward spiral of worsening depression and anxiety. The only issues she is having currently is struggling w/ lack of sleep despite being back on her trazadone. She has had long standing insomnia. Exam Narrative Exam Narrative: Pleasant young female who makes good eye contact, she is quite open and tato about her suicide attempt. She answers my questions directly. Objective Last Vital Signs Temp 37.5 C 11/10/22 05:43 Pulse 65 11/10/22 07:45 Resp 18 11/10/22 05:43 BP 132/79 11/10/22 07:45 Pulse Ox 99 11/10/22 07:45 PAWSS Have you Been Recently Intoxicated or Drunk Within the Last 30 days?: Unable to Obtain Have you Ever Experienced Previous Episodes of Alcohol Withdrawal?: Unable to Obtain Have you ever Experienced Withdrawal Seizures?: Unable to Obtain Have you ever Experienced Delirium Tremens(DT)s?: Unable to Obtain Have you ever undergone Alcohol Rehabilitation Treatment (i.e, inpt ot outpatient treatment programs)?: Unable to Obtain Have you ever Experienced Blackouts?: Unable to Obtain Have you ever Combined Alcohol with other Downers within the last 90 days?: Unable to Obtain Have you ever Combined Alcohol with any other Substance of Abuse during the last 90 days?: Unable to Obtain Positive Blood Alcohol level on Presentation? [PCS.BAL]: Unable to Obtain Evidence of Increased Autonomic Activity (i.e. HR>120, tremor, sweating, agitation, nausea)?: Unable to Obtain Time Spent with Patient Time Spent with Patient: <25 minutes Time was spent: obtaining and/or reviewing separately otained hiistory, counseling the patient and care coordination
--- NOTE | 2022-11-10 09:29 | NUR.NOTE ---
Nursing Note: Patient transferred from ICU to [facility] transition unit. Patient ambulated to room, assessment benign, vvs.
[2022-11-10] MEDS: ALPRAZolam 0.25 MG TAB PO (10:40)
[2022-11-10] MEDS: LORazepam 1 MG TAB 2 MG SL (14:43)
--- NOTE | 2022-11-10 14:51 | PDOC.CMPRO ---
- If Service Date Differs Date of service: 11/10/22 Time of Service: 14:51 Care Management Progress Note S/O: Ailyn was sitting up on her bed when CM met with her. She was teary and angry. She stated that she wanted to leave and was upset because Kate has decided to pursue having her EE'd. Dr. Canas met with Ailyn and agreed that she needs treatment so has agreed to complete the required paperwork. presented Ailyn with a copy of the Rights for a Person in the custody of the Commissioner of Mental health for the [facility]. She refused to sign the document. Ailyn understood from her conversation with Kate that she HAD to accept the bed at [facility] even though it was on the LGBTQ Unit. Ailyn reported to CM that she was asked if she was comfortable with being on the unit and she stated that she was not. She also stated that she feels she should have a say in where she goes and what type of treatment she receives. Ailyn shared with that things have not been going well with her grandparents. She informed that Kate told her they said they are afraid of her and do not want her to return. Ailyn stated nothing matters. I have nothing more to lose. A: Ailyn is a 32 year old female admitted to [facility] on 11/05/22 with polypharmacy overdose. P: Ailyn is medically cleared, awaiting involuntary inpatient psychiatric admission. A bed offer was received from [facility] but Ailyn refused the bed. [facility] has declined to offer Ailyn a bed and the other hospitals have no beds. When Ailyn does receive a bed offer, [facility] will arrange transport. will continue to support Ailyn and her discharge needs.
[2022-11-10] MEDS: busPIRone 5 MG TAB PO ×2 (16:24→20:52)
--- NOTE | 2022-11-10 16:32 | CMSP_ITS ---
- If Service Date Differs Date of service: 11/10/22 Time of Service: 16:32 Care Management Safety Plan Status: Involuntary - Reason for Wait Reason for Wait: Inpatient Admission Ailyn was admitted to [facility] on 11/05/22 following an intentional polpharnmacuy overdose. When medically cleared she was screened by [facility] Crisis screener and agreed to voluntary inpatient hospitalization. No beds have been available. Today, Ailyn informed Kate from [facility] that she wished to leave and would no longer be willing to seek placement. Kate determined that she was a risk to herself and is pursuing Involuntary placement. As of this writing, the paperwork is in process, but not complete. Safety plan has been established to meet the needs of the patient, and consideration of the care team, to adhere to patient goals, identify rest rictions based on behavioral status, address nutrition, and determine allowed personal belongings, tools for hygiene and personal care. Determine level of activity including ambulation, level of supervision, visitors, and determine privileges based on behaviors and level of engagement by pt. SAFETY PLAN: 1. Will remain on SI/HI precautions. In Paper Clothes 2. Will remain in room under direct supervision of one-on-one staff at all times provided by [employer]; NELSY, RECORDS MANAGEMENT DIRECTOR center medical and lab director. 3. May have paper cups, plates, finger foods as well as a cardboard spoon 4. Follow [facility] Management of the Admitted Behavioral Health Patient policy. 5. Comfort bath system only. 6. No personal belongings except books. 7. Visitors: none 8. Activities: soft cart items at nursing discretion 9. Bathroom privileges with supervision 10. Phone: None at this time 11. Due to INVOLUNTARY status, patient is being held at [facility] by the Department of Mental Health ([facility]) until 2nd certification by [facility] Psychiatrist can be performed (within 24 hours). Staff will provide de-escalation support (CPI) as needed. If patient wishes to leave [facility], staff will contact [facility] Crisis Screener ([phone]) and On-Call Medical Administrative Assistant ([phone]) as soon as possible. In the event of elopement, notify [facility] Police ([phone]). Patient is currently involuntarily at [facility]. [facility] Frontline Stull Hewer will continue seeking placement. Please contact the Sustainable Agriculture Specialist Medical Administrative Assistant ([phone]) for any needed changes to Safety Plan. Safety plan has been provided to interdepartmental care team. Patient will be transported by tennis professional at time of discharge.
--- NOTE | 2022-11-10 16:32 | PDOC.CMSAFE ---
- If Service Date Differs Date of service: 11/10/22 Time of Service: 16:32 Care Management Safety Plan Status: Involuntary - Reason for Wait Reason for Wait: Inpatient Admission Ailyn was admitted to [facility] on 11/05/22 following an intentional polpharnmacuy overdose. When medically cleared she was screened by [facility] Crisis screener and agreed to voluntary inpatient hospitalization. No beds have been available. Today, Ailyn informed Kate from [facility] that she wished to leave and would no longer be willing to seek placement. Kate determined that she was a risk to herself and is pursuing Involuntary placement. As of this writing, the paperwork is in process, but not complete. Safety plan has been established to meet the needs of the patient, and consideration of the care team, to adhere to patient goals, identify restrictions based on behavioral status, address nutrition, and determine allowed personal belongings, tools for hygiene and personal care. Determine level of activity including ambulation, level of supervision, visitors, and determine privileges based on behaviors and level of engagement by pt. SAFETY PLAN: 1. Will remain on SI/HI precautions. In Paper Clothes 2. Will remain in room under direct supervision of one-on-one staff at all times provided by [employer]; NELSY, RESEARCH/PROGRAM DIRECTOR boilermaking supervisor. 3. May have paper cups, plates, finger foods as well as a cardboard spoon 4. Follow [facility] Management of the Admitted Behavioral Health Patient policy. 5. Comfort bath system only. 6. No personal belongings except books. 7. Visitors: none 8. Activities: soft cart items at nursing discretion 9. Bathroom privileges with supervision 10. Phone: None at this time 11. Due to INVOLUNTARY status, patient is being held at [facility] by the Department of Mental Health ([facility]) until 2nd certification by [facility] Psychiatrist can be performed (within 24 hours). Staff will provide de-escalation support (CPI) as needed. If patient wishes to leave [facility], staff will contact [facility] Crisis Screener ([phone]) and On-Call Bryologist ([phone]) as soon as possible. In the event of elopement, notify [facility] Police ([phone]). Patient is currently involuntarily at [facility]. [facility] Frontline General Assembler Installer will continue seeking placement. Please contact the Flight Kitchen Manager Bryologist ([phone]) for any needed changes to Safety Plan. Safety plan has been provided to interdepartmental care team. Patient will be transported by jewellery designer at time of discharge.
--- NOTE | 2022-11-10 16:40 | CMSP_ITS ---
- If Service Date Differs Date of service: 11/10/22 Time of Service: 16:40 Care Management Safety Plan Status: Voluntary - Reason for Wait Reason for Wait: Inpatient Admission VOLUNTARY FOR INPATIENT PSYCHIATRIC STABILIZATION. Patient is no longer willing to seek inpatient treatment. She has been screened by [facility] screener Kate and Dr. Canas and the process to move towards Involuntary placement is underway. Safety plan has been established with patient, and care team, to adhere to patient goals, identify restrictions based on behavioral status, address nutrition, and determine allowed personal belongings, tools for hygiene and personal care. Determine level of activity including ambulation, level of supervision, visitors, and determine privileges based on behaviors and level of engagement by pt. SAFETY PLAN: 1. Will remain on suicide precautions. In Paper Clothes 2. Will remain in room under direct supervision of one-on-one staff at all times provided by [employer]; NELSY, LIFE ENRICHMENT SPECIALIST crowning inspector. 3. May have paper cups, plates, finger foods as well as a cardboard spoon with which to eat meals. 4. Follow [facility] Management of the Admitted Behavioral Health Patient policy. 5. Comfort bath system only. 6. No personal belongings-soft items permitted at RN discretion. 7. Visitors-none at this time. 8. Activities: soft cart items approved per RN discretion. 9. Bathroom privileges without limitation on M/S. 10. Phone: contact limited to legal director at this time via cordless phone . 11. Due to VOLUNTARY status, if patient wishes to leave [facility], staff will contact [facility] Crisis Screener ([phone]) and On-Call Steward/Stewardess Economy Class ([phone]) as soon as possible. In the event of elopement, notify [facility] Police ([phone]). Patient is currently voluntarily at [facility] and seeking inpatient admission when a bed becomes available. [facility] Frontline Training Lead will continue seeking placement. Please contact the Creative Manager Steward/Stewardess Economy Class ([phone]) and [facility] Training Lead ([phone]) for any needed changes in the Safety Plan. Safety plan has been provided to interdepartmental care team.
[2022-11-10 18:29] VITALS: BP 119/84; PULSE 83; RESP 18; TEMP 36.8; O2SAT 97
[2022-11-10] MEDS: traZODone 100 MG TAB PO (21:00)
--- NOTE | 2022-11-10 21:46 | PDOC.MHPN2 ---
Date of service: 11/10/22 Time of Service: 21:46 Mental Health Emergency Note Release [facility] release signed:: Yes Reason for Visit This clinician wrote an EE today based on the clients presentation and demands to leave the hospital AMA. Please refer to the EE for further details. In the last 2 weeks has the pt presented for ES prior to today?: Unknown Client Information Client is: Adult Outpatient Well Housed: No,status: Homeless Non Suicidal Self Injury Current: No History: yes, This clinician wrote an EE today based on the clients presentation and demands to leave the hospital AMA. Please refer to the EE for further details. Safety Risk/Harm to Self or Others Current Ideation to Harm Self or Others: Yes to self. Intent: yes, has intent. Plan: no.does not have a plan. History of suicide attempt: yes,history of suicide attempt reported. Details of previous suicide attempt: This clinician wrote an EE today based on the clients presentation and demands to leave the hospital AMA. Please refer to the EE for further details. Risk: Does risk to harm exist?: yes. Risk: High Risk Duty to warn indicated: No Asssessment/Mental Status Appearance: Disheveled Attitude: Demanding and Hostile Behavior: Agitated Speech: Loud Affect: Cogruent with mood Mood: Stressed, Depressed, Irritable and Angry Thought process: Goal directed Hallucinations: No Delusions: No Attention: Unremarkable Perception: Not impaired Orientation: Fully orientated Memory: Intact Insight: Poor Judgement: Poor Neurovegetative Symptoms Sleep: Decrease Appetitie: Decrease Interests: Decrease Energy: Decrease Libido: Not applicable Substance Use: ETOH dependence Do you use nicotine?: No Have you used substances in the last 7 days?: yes, This clinician wrote an EE today based on the clients presentation and demands to leave the hospital AMA. Please refer to the EE for further details. Additional Issues: Assaultive/Threatening Behavior: No Medical Concerns: No Client engaged in active self harm w/weapon: No Threatening to run away: Yes Child reported abuse/neglect: No Voluntarily presenting for services: No Domestic violence is a concern: No Extreme Psychosis or extreme behavior is present: Yes Impression This clinician wrote an EE today based on the clients presentation and demands to leave the hospital AMA. Please refer to the EE for further details. Plan/Disposition Recommended Disposition: Hospitalization (This clinician wrote an EE today based on the clients presentation and demands to leave the hospital AMA. Please refer to the EE for further details.) facilities contacted. Plan: This clinician wrote an EE today based on the clients presentation and demands to leave the hospital AMA. Please refer to the EE for further details. Paperwork was not sent out to potential receiving hospitals as this clinician did not recieve the physician's cert from hospitalist, Dr Canas until 8:30pm. This clinician consulted with him at 2:30pm this afternoon about the change in the clients presentation and need for placement and involuntary hold based on the clients refusal to accept placement and demands to leave [facility] AMA. Person reported agreement to plan: No Reports/communication Outcome discussed with: ED/Personnel
[2022-11-10 23:24] VITALS: BP 111/67; PULSE 66; RESP 16; TEMP 36.4; O2SAT 98
[2022-11-11] MEDS: Levothyroxine 75 MCG TAB PO (06:54)
[2022-11-11 07:18] VITALS: BP 120/86; PULSE 90; RESP 18; TEMP 36.2; O2SAT 98
[2022-11-11] MEDS: busPIRone 5 MG TAB PO ×3 (07:40→19:53)
[2022-11-11] MEDS: Escitalopram 20 MG TAB 40 MG PO (07:40)
[2022-11-11] MEDS: Acetaminophen 500 MG TAB PO (07:40)
[2022-11-11] MEDS: Polyethylene Glycol 3350 17 GM PACKET PO (07:40)
--- NOTE | 2022-11-11 11:16 | W.PM.PROGNOT ---
Date of Service Date of service: 11/11/22 Time of Service: 11:17 Assessment and Plan Assessment and plan (1) Overdose: Status: Acute Assessment and plan: polypharmacy OD; she endorsed taking Seroquel and clonidine. She was EE'd last evening and is awaiting second provider assessment. She is quite serious and suspect if discharged she will hurt herself. Mental health has evaluated and she is agreeable to inpt treatment; referrals sent and are pending (2) Alcohol intoxication: Status: Resolved Assessment and plan: Stable w/o withdrawal signs/sxs. Qualifiers: Complication of substance-induced condition: with unspecified complication Qualified Code(s): F10.929 - Alcohol use, unspecified with intoxication, unspecified (3) Major depression: Status: Chronic Assessment and plan: On lexapro and quetiapine at home. Also takes trazadone nightly. Continue trazadone at 100 mg nightly and lunesta 1 mg hs prn Continue lexapro at 40mg daily. (4) Hypothyroidism: Status: Chronic Assessment and plan: TSH 10.13 which is high, however her FT4 is normal at 1.14. We will continue her current dose of levothyroxine for now but her levels should be rechecked in 6 to 8 weeks to assess stability. Subjective Subjective Patient reports: tolerating a regular diet, voiding w/o difficulty, bowel movement and afebrile; denies diarrhea, nausea, vomiting or shortness of breath Interval history since last seen: Ailyn states she would like to leave, but she then says she has nowhere to go. She states she was a resident for five years at [facility] and would prefer not to go there. She would ultimately like to go to [place]. She is tearful and anxious. She is eating meals and drinking water. Exam Narrative Exam Narrative: Lying in bed. Interactive. Const General: well developed Nutritional Appearance: average body habitus Orientation: oriented x3 HENMT Head: normocephalic, atraumatic and contusion Mouth: oral mucosae normal Eyes General: appearance normal, both eyes and all related structures Sclera: sclerae normal Neck Neck: normal visual inspection, no lymphadenopathy, trachea midline, supple and no JVD Carotids: normal carotid upstroke Lymphatic: no lymphadenopathy noted Resp Effort & Inspection: normal respiratory effort Auscultation: clear to auscultation bilaterally Cardio Jugular venous pressure: no JVD Rate: regular rate Rhythm: regular rhythm Heart Sounds: S1 normal, S2 normal and no murmurs GI Auscultation: hypoactive bowel sounds Back/Spine/Pelvis Cervical Spine: normal cervical lordosis Thoracic/Lumbar Spine: thoracic and lumbar spine normal to inspection Skin General skin exam: scars (old, healed cutting scars over both arms) Lesions: no lesions Rashes: no rashes Other: tatoo over her back Neuro General: no focal motor deficits Extrem General: no clubbing, cyanosis or edema Psych Affect: blunted Attitude: cooperative Thought Process: normal Objective Last Vital Signs Temp 36.2 C L 11/11/22 07:18 Pulse 90 11/11/22 07:18 Resp 18 11/11/22 07:18 BP 120/86 11/11/22 07:18 Pulse Ox 98 11/11/22 07:18 PAWSS Have you Been Recently Intoxicated or Drunk Within the Last 30 days?: Unable to Obtain Have you Ever Experienced Previous Episodes of Alcohol Withdrawal?: Unable to Obtain Have you ever Experienced Withdrawal Seizures?: Unable to Obtain Have you ever Experienced Delirium Tremens(DT)s?: Unable to Obtain Have you ever undergone Alcohol Rehabilitation Treatment (i.e, inpt ot outpatient treatment programs)?: Unable to Obtain Have you ever Experienced Blackouts?: Unable to Obtain Have you ever Combined Alcohol with other Downers within the last 90 days?: Unable to Obtain Have you ever Combined Alcohol with any other Substance of Abuse during the last 90 days?: Unable to Obtain Positive Blood Alcohol level on Presentation? [PCS.BAL]: Unable to Obtain Evidence of Increased Autonomic Activity (i.e. HR>120, tremor, sweating, agitation, nausea)?: Unable to Obtain Time Spent with Patient Time Spent with Patient: 25-34 minutes Time was spent: preparing to see the patient(eg.review tests), obtaining and/or reviewing separately otained hiistory, ordering medications,tests, procedures, referring, communicating with other health medical care evaluation specialist, indepentently interpreting results, counseling the patient and care coordination
--- NOTE | 2022-11-11 11:41 | CMPROGNOTE_ITS ---
- If Service Date Differs Date of service: 11/11/22 Time of Service: 11:41 Care Management Progress Note S/O: Ailyn was sitting up on her bed when CM met with her. She had been crying and expressed again that she feels it is unfair that she is in Involuntary status. She had questions about the process and CM explained that she would likely have the second cert this evening. After a bit of discussoin, it was evident that Ailyn misunderstood the process. She believed that she would be hel d at [facility] involuntarily, indefinitely and that it would prevent her from getting treatment elsewhere. CM explained that pretty much the opposite was true. She is being held involuntarily to ensure she does get treatment in a psychiatric facility. She appeared calmer when this was explained. Ailyn did ask CM to contact her grandparents to see if they would pack her a bag of her belongings.Unfortunately, the EE paperwork was sent late last night and the second cert was not completed within 24 hours, so the originating paperwork will need to be redone. A: Ailyn is a 32 year old female admitted to [facility] on 11/05/22 with polypharmacy overdose. P: Ailyn is medically cleared, awaiting involuntary inpatient psychiatric admission. A bed offer was received from [facility] but Ailyn refused the bed because it was on the LGBTQ unit. [facility] has declined to offer Ailyn a bed and the other hospitals have no beds. When Ailyn does receive a bed offer, [facility] will arrange transport. CM will continue to support Ailyn and her discharge needs. - Status Status: Involuntary - Reason for Wait Reason for Wait: Inpatient Admission
--- NOTE | 2022-11-11 11:43 | CMSP_ITS ---
- If Service Date Differs Date of service: 11/11/22 Time of Service: 11:43 Care Management Safety Plan Status: Involuntary - Reason for Wait Reason for Wait: Inpatient Admission Ailyn was admitted to [facility] on 11/05/22 following an intentional polpharmacy overdose. When medically cleared she was screened by [facility] Crisis screener and agreed to voluntary inpatient hospitalization. No beds have been available. Yesterday, Ailyn informed Kate from [facility] that she wished to leave and would no longer be willing to seek placement. Kate determined that she was a risk to herself and is pursuing Involuntary placement. As of this writing, the paperwork is in process, but not complete. Safety plan has been established to meet the needs of the patient, and consideration of the care team, to adhere to patient goals, identify r estrictions based on behavioral status, address nutrition, and determine allowed personal belongings, tools for hygiene and personal care. Determine level of activity including ambulation, level of supervision, visitors, and determine privileges based on behaviors and level of engagement by pt. SAFETY PLAN: 1. Will remain on SI/HI precautions. In Paper Clothes 2. Will remain in room under direct supervision of one-on-one staff at all times provided by [employer]; NELSY, DRY LUMBER GRADER manufacturing advisor. 3. May have paper cups, plates, finger foods as well as a cardboard spoon 4. Follow [facility] Management of the Admitted Behavioral Health Patient policy. 5. Comfort bath system only. 6. No personal belongings except books. 7. Visitors: none 8. Activities: soft cart items at nursing discretion 9. Bathroom privileges with supervision 10. Phone: None at this time 11. Due to INVOLUNTARY status, patient is being held at [facility] by the Department of Mental Health ([facility]) until 2nd certification by [facility] Psychiatrist can be performed (within 24 hours). Staff will provide de-escalation support (CPI) as needed. If patient wishes to leave [facility], staff will contact [facility] Crisis Screener ([phone]) and On-Call Sfdc Solution Architect ([phone]) as soon as possible. In the event of elopement, notify [facility] Police ([phone]). Patient is currently involuntarily at [facility]. [facility] Frontline Tower Air Traffic Control Specialist will continue seeking placement. Please contact the Rotary Driller Helper Sfdc Solution Architect ([phone]) for any needed changes to Safety Plan. Safety plan has been provided to interdepartmental care team. Patient will be transported by cns at time of discharge.
--- NOTE | 2022-11-11 11:43 | PDOC.CMSAFE ---
- If Service Date Differs Date of service: 11/11/22 Time of Service: 11:43 Care Management Safety Plan Status: Involuntary - Reason for Wait Reason for Wait: Inpatient Admission Ailyn was admitted to [facility] on 11/05/22 following an intentional polpharmacy overdose. When medically cleared she was screened by [facility] Crisis screener and agreed to voluntary inpatient hospitalization. No beds have been available. Yesterday, Ailyn informed Kate from [facility] that she wished to leave and would no longer be willing to seek placement. Kate determined that she was a risk to herself and is pursuing Involuntary placement. As of this writing, the paperwork is in process, but not complete. Safety plan has been established to meet the needs of the patient, and consideration of the care team, to adhere to patient goals, identify restrictions based on behavioral status, address nutrition, and determine allowed personal belongings, tools for hygiene and personal care. Determine level of activity including ambulation, level of supervision, visitors, and determine privileges based on behaviors and level of engagement by pt. SAFETY PLAN: 1. Will remain on SI/HI precautions. In Paper Clothes 2. Will remain in room under direct supervision of one-on-one staff at all times provided by [employer]; NELSY, WELL DRILL OPERATOR CABLE TOOL assemblyman or woman. 3. May have paper cups, plates, finger foods as well as a cardboard spoon 4. Follow [facility] Management of the Admitted Behavioral Health Patient policy. 5. Comfort bath system only. 6. No personal belongings except books. 7. Visitors: none 8. Activities: soft cart items at nursing discretion 9. Bathroom privileges with supervision 10. Phone: None at this time 11. Due to INVOLUNTARY status, patient is being held at [facility] by the Department of Mental Health (DM) until 2nd certification by [facility] Psychiatrist can be performed (within 24 hours). Staff will provide de-escalation support (CPI) as needed. If patient wishes to leave [facility], staff will contact [facility] Crisis Screener ([phone]) and On-Call Remediation Bioanalytics Consultant ([phone]) as soon as possible. In the event of elopement, notify [facility] Police ([phone]). Patient is currently involuntarily at [facility]. [facility] Frontline College Scouting Coordinator will continue seeking placement. Please contact the Gas Stove Servicer Helper Remediation Bioanalytics Consultant ([phone]) for any needed changes to Safety Plan. Safety plan has been provided to interdepartmental care team. Patient will be transported by surgical forceps fabricator at time of discharge.
--- NOTE | 2022-11-11 12:58 | MHPN_ITS ---
Date of service: 11/11/22 Time of Service: 10:22 Mental Health Emergency Note Release [facility] release signed:: Yes Reason for Visit Ailyn overdosed on her prescription medications after consuming multiple bottles of vodka. (Per client's report). Ailyn was brought in via ambulance after her overdose on 11/05. Client is currently on EE status as of 11/10. Client's second certification is scheduled to take place on the evening of 11/11, time is still TBD. In the last 2 weeks has the pt presented for ES prior to today?: No Client Information Client is: Adult Outpatient Well Housed: Yes Non Suicidal Self Injury Current: Yes, Client reports currently endorsing NSSI. Client reports plan/intent. Client states, there are so many ways you can harm yourself, I would choose any of them. Client reports 01/04 for level of intent, of acting on her thoughts of NSSIBs, if she were to leave the hospital today. Client reports past hx of NSSIBs of self-cutting; 1 1/2 yr ago. Client reports engaging in self cutting on a weekly basis 1 1/2 yr ago. History: yes, please reference above Safety Risk/Harm to Self or Others Current Ideation to Harm Self or Others: Yes to self. (Client reports currently endorsing SI. Client reports intent/plan. Client states, constantly having thoughts of wanting to end her life by suicide. Client reports, thoughts consist of, my life isn't worth living, nothing is going to get better, people would be better off without me. ) Intent: yes, has intent. Plan: yes,has a plan. History of suicide attempt: No history of suicide attempt reported Risk: Does risk to harm exist?: yes. Access to means: Yes. Types of Means: Other weapons (Sharps ) and Medication. Details: Client does not currently have access to means while at [facility]. However, upon discharge, client reports she has access to rxs and sharps. . Counseling provided: Yes Risk: High Risk (Client presents with poor judgement/insight. ) Asssessment/Mental Status Appearance: Disheveled Attitude: Guarded Behavior: Unremarkable Speech: Normal Affect: Flat and Cogruent with mood Mood: Irritable, Angry and Other (Client reports current mood as frustrated ) Thought process: Unremarkable Hallucinations: No evidence Delusions: No evidence Attention: Unremarkable Perception: Not impaired Orientation: Fully orientated Memory: Intact Insight: Poor Judgement: Poor Neurovegetative Symptoms Sleep: Decrease Appetitie: Disordered (Client reports being d.o. with eating disorder since the age of 15. ) Interests: Decrease Energy: Decrease Plan/Disposition Recommended Disposition: Hospitalization (Client's 2nd certification will take place on the evening of 11/11, time is still TBD. Referrals have been sent. ) facilities contacted. Plan: Client is to remain at [facility] on EE status, until the 2nd certification takes place. Facilities contacted if Applicable [facility] (Still pending review) Not accepted, (Still pending review ) [facility] Not accepted, No bed available [facility] Not accepted, No bed available, [facility] Not accepted, Acuity Reports/communication Outcome discussed with: ED/Personnel (GEGE Beck)
[2022-11-11] MEDS: ALPRAZolam 0.25 MG TAB PO ×2 (13:21→18:40)
--- NOTE | 2022-11-11 13:50 | NUR.NOTE ---
Nursing Note:global category manager Ebony met with patient at this time, discussed referrals will be resent once involuntary status becomes complete.
[2022-11-11 15:40] VITALS: BP 122/85; PULSE 80; RESP 16; TEMP 36.2; O2SAT 98
[2022-11-11] MEDS: traZODone 100 MG TAB PO (22:36)
[2022-11-11 23:01] VITALS: BP 115/81; PULSE 84; RESP 16; TEMP 36.7; O2SAT 96
[2022-11-12] MEDS: Levothyroxine 75 MCG TAB PO (06:16)
[2022-11-12 08:36] VITALS: BP 142/92; PULSE 100; RESP 18; TEMP 37.3; O2SAT 97
[2022-11-12] MEDS: Escitalopram 20 MG TAB 40 MG PO (08:36)
[2022-11-12] MEDS: Polyethylene Glycol 3350 17 GM PACKET PO (08:36)
[2022-11-12] MEDS: busPIRone 5 MG TAB PO ×3 (08:36→19:22)
--- NOTE | 2022-11-12 08:55 | W.PM.PROGNOT ---
Date of Service Date of service: 11/12/22 Time of Service: 08:56 Objective Last Vital Signs Temp 37.3 C 11/12/22 08:36 Pulse 100 H 11/12/22 08:36 Resp 18 11/12/22 08:36 BP 142/92 H 11/12/22 08:36 Pulse Ox 97 11/12/22 08:36 PAWSS Have you Been Recently Intoxicated or Drunk Within the Last 30 days?: Unable to Obtain Have you Ever Experienced Previous Episodes of Alcohol Withdrawal?: Unable to Obtain Have you ever Experienced Withdrawal Seizures?: Unable to Obtain Have you ever Experienced Delirium Tremens(DT)s?: Unable to Obtain Have you ever undergone Alcohol Rehabilitation Treatment (i.e, inpt ot outpatient treatment programs)?: Unable to Obtain Have you ever Experienced Blackouts?: Unable to Obtain Have you ever Combined Alcohol with other Downers within the last 90 days?: Unable to Obtain Have you ever Combined Alcohol with any other Substance of Abuse during the last 90 days?: Unable to Obtain Positive Blood Alcohol level on Presentation? [PCS.BAL]: Unable to Obtain Evidence of Increased Autonomic Activity (i.e. HR>120, tremor, sweating, agitation, nausea)?: Unable to Obtain Result: 7
--- NOTE | 2022-11-12 09:21 | PDOC.CMSAFE ---
- If Service Date Differs Date of service: 11/12/22 Time of Service: 09:21 Care Management Safety Plan Status: Involuntary - Reason for Wait Reason for Wait: Inpatient Admission Ailyn was admitted to [facility] on 11/05/22 following an intentional polpharmacy overdose. When medically cleared she was screened by [facility] Crisis screener and agreed to voluntary inpatient hospitalization. No beds have been available. On Friday, Ailyn informed Kate from [facility] that she wished to leave and would no longer be willing to seek placement. Kate determined that she was a risk to herself and pursued Involuntary placement. last evening a second certification was completed and the Involuntary status was upheld. Safety plan has been established to meet the needs of the patient, and consideration of the care team, to adhere to patient goals, identify restrictions based on behavioral status, address nutrition, and determine allowed personal belongings, tools for hygiene and personal care. Determine level of activity including ambulation, level of supervision, visitors, and determine privileges based on behaviors and level of engagement by pt. A decentralized safety hiuddle was done with SAFETY PLAN: 1. Will remain on SI/HI precautions. In Paper Clothes 2. Will remain in room under direct supervision of one-on-one staff at all times provided by [employer]; NELSY, PASTE WORKER director of health education. 3. May have paper cups, plates, finger foods as well as a cardboard spoon 4. Follow [facility] Management of the Admitted Behavioral Health Patient policy. 5. Comfort bath system only. 6. No personal belongings except books. 7. Visitors: none 8. Activities: soft cart items at nursing discretion 9. Bathroom privileges with supervision 10. Phone: None at this time 11. Due to INVOLUNTARY status, patient is being held at [facility] by the Department of Mental Health ([facility]) until 2nd certification by [facility] Psychiatrist can be performed (within 24 hours). Staff will provide de-escalation support (CPI) as needed. If patient wishes to leave [facility], staff will contact [facility] Crisis Screener ([phone]) and On-Call Emergency Management Specialist ([phone]) as soon as possible. In the event of elopement, notify [facility] Police ([phone]). Patient is currently involuntarily at [facility]. [facility] Frontline Industrial Technology Education Teacher will continue seeking placement. Please contact the Supervisor Screen Printing Emergency Management Specialist ([phone]) for any needed changes to Safety Plan. Safety plan has been provided to interdepartmental care team. Patient will be transported by last pattern grader at time of discharge. This is privileged, confidential information, intended only for the provider named. Any use or distribution by any person other than this provider is strictly prohibited. If you receive this report in error, please notify us immediately at [phone] and return the original report to us at the address above. Thank you.
[2022-11-12] MEDS: LORazepam 1 MG TAB 2 MG SL ×2 (10:19→17:54)
--- NOTE | 2022-11-12 11:09 | NUR.NOTE ---
Nursing Note:Nurse to Nurse completed with Orin may [place]
--- NOTE | 2022-11-12 11:22 | W.PM.DS.N ---
Date of service: 11/12/22 Time of Service: : DS: Diagnosis Discharge Diagnosis (1) Overdose: Status: Acute (2) Alcohol intoxication: Status: Resolved (3) Major depression: Status: Chronic (4) Hypothyroidism: Status: Chronic Discharge Plan Disposition Patient Disposition: Psychiatric Hospital/Unit Specific Psychiatric Facility: [facility] Condition: Serious Discharge Details Reason For Visit: Polypharmacy Overdose Admit Date/Time: 11/05/22 20:49 Admit Provider: Hamlet Canas Attending Provider: Hamlet Canas Primary Care Provider: Clair Thomas [facility] Course Hospital Course: 32-year-old female with a past medical history of alcohol abuse, depression, high cholesterol, anorexia nervosa, borderline personality disorder, who presented 11/05/2022 to the [facility] ED for mental status change and overdose.? History is limited, but per EMS report the patient had been drinking a fair amount of alcohol and then was found that evening unresponsive.? Per EMS there were empty bottles of Seroquel, trazodone, and clonidine.? When EMS arrived the patient was unresponsive and per EMS did not have a gag reflex.? Patient was then brought to the ED where upon arrival the patient had a GCS of 4 to 5 and absent gag, she was intubated to protect her airway. EMS did not bring her bottles in with them but [facility] retrieved them and found bottles for trazadone 100 mg tablets that was 4 months old and empty, clonidine 0.3 mg tablets which was old and empty, quetiapine 100 mg tablets, empty but if taken appropriately should have had 20 tablets left, NAC 600 mg tablets which should have been empty if taken appropriately. Review of her external med hx shows that she had the following Rx filled: clonidine 0.3 mg #30 on 11/05/22, levothyroxine 75 mcg #90 on 10/16/22, trazadone 100 mg #30 on 10/15/22, escitalopram 20 mg two daily, #60 on 10/15/22, naltrexone 50 mg #30 on 09/29, quetiapine fumarate 100 mg 390 on 08/22/22; Ability was last filled for #0 on 05/04/22 and NAC #60 (15 days worth) on 12/31/21.? Labs included: CBC, CMP, UA, TSH, UDS; EKG, CT head. Labs demonstrated unremarkable CBC, CMP low potassium 3.2, normal LFT, renal function, glucose 116. TSH high at 10.13 w/ normal FT4 1.14, normal UA.? UDS negative except for AMOL 216.? salicylate level <2.8 mg/dL and acetaminophen level <2 mcg/mL. EKG sinus rhythm with a rate of 84, QRS of 78, QTc is 477. CT head non-contrast: no acute findings. Post intubation ABG 7.38, pO2 187, pCO2 41, on FIO2 35%. Patient was admitted to ICU for airway protection/support. Telemetry monitoring and EKG to monitor her QTC.? She was extubated the next day.? She was medically cleared and moved to the transitional unit.? She was screened by mental health and found appropriate for transfer to a mental health facility. She did display some anxiety which she received lorazepam sublingual with good results.? On 11/11/2022 she requested to leave and mental health felt that she was at too great a risk and had the doctor do an Emergency Exam and found her appropriate to be placed on involuntary status pending transfer.? She states she is willing to go where she can get help.? She knows that she is high risk and does not feel safe if she did leave.? She has agreed to go wherever she is accepted.? Recommend PCP follow up TSH/levothyroxine dosing. She has been cooperative here, pleasant, outwardly sad, tearful and states she feels hopeless and no one can help her, although is willing to try. She did receive a few doses of Lorazepam for anxiety with acceptable, according to patient, results. She is being transferred to [facility], accepted by Dr Cohn. Home Meds and New Rx's Prescriptions: New buspirone 5 mg Tablet 5 mg PO TID Qty: 0 0RF Continued levothyroxine 75 mcg capsule 75 mcg PO DAILY Qty: 90 3RF Rx Instructions: / take one capsule daily escitalopram oxalate [Lexapro] 20 mg Tablet 40 mg PO DAILY trazodone 100 mg tablet 100 mg PO HS Patient Comments: TAKE ONE TABLET BY MOUTH AT BEDTIME magnesium oxide 400 mg (241.3 mg magnesium) Tablet 400 mg PO BID Qty: 0 0RF Discontinued quetiapine 100 mg tablet 100 mg PO HS Patient Comments: TAKE ONE TABLET BY MOUTH AT BEDTIME Discharge Instructions Stand Alone Forms: Nursing Discharge Form Referrals: Clair Thomas MD [Primary Care Provider] - (Follow up after discharge from [facility] re TSH/Levothyroxine dose) Activity:: Activity as Tolerated Equipment/Supplies:: No Equipment Needed Diet:: As Tolerated Discharge Orders Discharge Orders: Discharge Order (Routine); Ordered 11/12/22 Ordered By: Antionette Powers DS: Summary Time Spent with Patient providing and/or coordinating discharge services: Greater than 30 minutes Status at Discharge Functional status at discharge: independent ambulation Overall status at discharge: patient is progressing back to baseline Mental Status: mental status grossly normal Speech and Movement: speech and movement normal and slurred speech Mood: congruent mood Affect: blunted Exam Narrative Exam Narrative: Lying in bed. Interactive. Const General: well developed Nutritional Appearance: average body habitus Orientation: oriented x3 HENMT Head: normocephalic, atraumatic and contusion Mouth: oral mucosae normal Eyes General: appearance normal, both eyes and all related structures Sclera: sclerae normal Neck Neck: normal visual inspection, no lymphadenopathy, trachea midline, supple and no JVD Carotids: normal carotid upstroke Lymphatic: no lymphadenopathy noted Resp Effort & Inspection: normal respiratory effort Auscultation: clear to auscultation bilaterally Cardio Jugular venous pressure: no JVD Rate: regular rate Rhythm: regular rhythm Heart Sounds: S1 normal, S2 normal and no murmurs GI Auscultation: hypoactive bowel sounds Back/Spine/Pelvis Cervical Spine: normal cervical lordosis Thoracic/Lumbar Spine: thoracic and lumbar spine normal to inspection Skin General skin exam: scars (old, healed cutting scars over both arms) Lesions: no lesions Rashes: no rashes Other: tatoo over her back Neuro General: no focal motor deficits Extrem General: no clubbing, cyanosis or edema Psych Mental Status: mental status grossly normal Speech and Movement: speech and movement normal and slurred speech Mood: congruent mood Affect: blunted Attitude: cooperative Thought Process: normal Thought Content: suicidality (feels hopeless) Insight: poor Judgment: poor DS: Data Vitals/I&O Vitals and I&O: Vital Signs Temperature 37.3 C 11/12/22 08:36 Temperature Source Tympanic 11/12/22 08:36 Pulse 100 H 11/12/22 08:36 Pulse Rhythm Regular 11/12/22 07:07 Pulse 55 L 11/09/22 00:18 Respiratory Rate 18 11/12/22 08:36 Respiratory Effort Normal, Non-Labored 11/12/22 07:07 Respiratory Depth Normal 11/12/22 07:07 Respiratory Pattern Normal 11/12/22 07:07 Blood Pressure 142/92 H 11/12/22 08:36 Blood Pressure Mean 90 11/10/22 07:45 Blood Pressure Position Supine 11/07/22 11:30 Pulse Oximetry 97 11/12/22 08:36 Respiratory End-tidal CO2 17 11/06/22 17:00 Oxygen Delivery Method Room Air 11/12/22 08:36 Oxygen Flow Rate 0 11/12/22 08:36 Fraction of Inspired Oxygen (FIO2) 21 11/06/22 07:55 Pain Level 0 11/12/22 08:39 Comment RN present during vitals 11/08/22 03:00 Intake & Output 11/11/22 11/11/22 11/12/22 11:59 23:59 11:59 Intake Total 330 / 330 600 / 600 Balance 330 / 330 600 / 600 Intake: Oral 330 / 330 600 / 600 Other: Urine Appearance Clear Clear Clear Urine Odor None Comment Patient void independently. pt reported she voided pt reports voiding Voiding Methods Toilet Toilet Toilet PFSH All Active Problems Overdose (Acute) Discharge planning issues (Acute) DVT prophylaxis (Acute) Depression with suicidal ideation (Acute) Depression (Chronic) Major depression (Chronic) Deliberate self-cutting (Acute) Eating disorder (Chronic) Hypothyroidism (Chronic 01/08/13) Major depressive disorder (Chronic) Hyperlipidemia (Chronic) Generalized anxiety disorder (Chronic) Anorexia nervosa (Chronic 10/16/12) Inpatient treatment at [facility] in [place] and [facility] from 2004 to 2009 Borderline personality disorder (Chronic 11/17/12) Surveillance for control, oral contraceptives (Chronic) Medical History Medication overdose at age 21--partly accidental, partly intentional Vitamin D deficiency Family History Mother Alcohol abuse Substance abuse Depression Father No problems noted. Sister No problems noted. Sister No problems noted. Brother No problems noted. Maternal Grandfather Heart disease Hypertension Diabetes Maternal Grandmother Hypertension Hyperlipidemia Social History Smoking/Tobacco Use Status: Never Second Hand Exposure: Yes Smoking risk assessment performed?: Yes Alcohol Intake: current Alcohol Intake frequency: 3 or more drinks per day Alcohol type: hard liquor Drug use: Never Substance use type: does not use Details: pt denies tobacco or substance abuse. States she drinks daily but denies withdrawal symptoms if she doesnt drink. Is intoxicated upon arrival, poor historian. Caregiver/Support person: No Household members: family Housing: apartment Communication Needs: None Do you need help understanding health information?: Rarely Pets and animals: Yes Sexually active: No Do you think of yourself as: straight/heterosexual Current gender identity: female What is your relationship status?: never How often do you talk on the phone with friends or family?: once per week How often do you get together with friends or relatives?: decline to answer How often do you attend quaker or restorationist services?: decline to answer Do you belong to any clubs or organized social groups?: no Panel score (0-1 are the most socially isolated patients): 0 What type of physical activity do you participate in: weight lifting Duration: 60-90 minutes/day Frequency: 5-6 times per week Niru/Mormon: None Special niru needs: No Seatbelt use: always Helmet use: Yes Helmet use: always Drive intox or ride w/intox industrial tractor driver: No Do you feel safe at home: Yes Do you feel safe in your relationship?: Yes Female Reproductive History Menstrual Age of Menarche: 14 History History 0 Para Hx # Term Pregnancies Multiple births Hx # Pregnancies Ectopic pregnancies AB induced Hx Number of Living Children AB spontaneous Time Spent with Patient Time Spent with Patient: 45-69 minutes Time was spent: ordering medications,tests, procedures, referring, communicating with other health care trainer, counseling the patient and care coordination
--- NOTE | 2022-11-12 11:57 | CMDISCH_ITS ---
- If Service Date Differs Date of service: 11/12/22 Time of Service: 11:57 Care Management Discharge Reason for Hospitalization: polysubstance overdose Discharge Plan: Ailyn will be transferred to [facility] for inpatient psychiatric treatment and stabilization. Transportation will be coordinated by [facility]. Patient/Family Education Needs: Review of discharge instructions, limitations, expectations. Services Needed at Discharge: Psychiatric Facility - Disposition Disposition: [place]
[2022-11-12 14:34] VITALS: BP 127/88; PULSE 98; RESP 16; TEMP 37.1; O2SAT 98
--- NOTE | 2022-11-12 22:55 | NUR.NOTE ---
[facility]. Patient left alert and oriented and in form of distress, was premedicated by previous nurse.
--- NOTE | 2022-11-13 16:52 | MHPN_ITS ---
Date of service: 11/12/22 Time of Service: 16:52 PHQ-9 Over the last 2 weeks, how often have you been bothered by any of the following problems? 1. Little interest or pleasure in doing things: several days 2. Feeling down, depressed, or hopeless: nearly every day 3. Trouble falling or staying asleep, or sleeping too much: nearly every day 4. Feeling tired or having little energy: more than half the days 5. Poor appetite or overeating: more than half the days 6. Feeling bad about yourself - or that you are a failure or have let yourself and your family down: nearly every day 7. Trouble concentrating on things, such as reading the newspaper or watching television: several days 8. Moving or speaking so slowly that other people could have noticed? - Or the opposite - being so fidgety or restless that you have been moving around a lot more than usual: not at all 9. Thoughts that you would be better off or of hurting yourself in some way: several days Total score: 16 If you checked off any problems, how difficult have these problems made it for you to do your work, take care of things at home, or get along with other people?: somewhat difficult Source: Developed by Drs. Raul De La Fuente, Renea Ocasio, Killian Lora and colleagues, with an educational leif from [employer]. Suicide Severity Rate CSSRS Have you wished you were or wished you could go to sleep and not wake up?: Yes Have you actually had any thoughts of killing yourself?: Yes CSSRS2 Have you been thinking about how you might do this?: Yes Have you had these thoughts and had some intention of acting on them?: Yes Have you started to work out or worked out the details of how to kill yourself? Do you intend to carry out this plan?: No CSSRS3 Have you ever done anything, started to do anything or prepared to do anything to end your life?: Yes CSSRS4 Was this within the past three months?: Yes Screening Score Total Score: 8 Screening: Positive Mental Health Emergency Note Release [facility] release signed:: Yes Reason for Visit Ailyn overdosed on her prescription medications after consuming multiple bottles of vodka. (Per client's report). Ailyn was brought in via ambulance after her overdose on 11/05. Client is currently on EE status as of 11/10. Client's second certification is scheduled to take place on the evening of 11/11. On 11/12 Ailyn Refused to participate in a reassessment with this insurance underwriter sales. In the last 2 weeks has the pt presented for ES prior to today?: Unknown Client Information Client is: Adult Outpatient Well Housed: No,status: Homeless Non Suicidal Self Injury Current: No History: yes, hx of cutting Safety Risk/Harm to Self or Others Current Ideation to Harm Self or Others: Yes to self. Intent: yes, has intent. Plan: no.does not have a plan. History of suicide attempt: yes,history of suicide attempt reported. Details of previous suicide attempt: Current hospitalization form an o.d. of alcohol and medications Risk: Does risk to harm exist?: yes. Access to means: No. Risk: Severe Duty to warn indicated: No Asssessment/Mental Status Appearance: Disheveled Attitude: Hostile Behavior: Hyperactivity and Agitated Speech: Pressured Affect: Blunted Mood: Stressed, Depressed, Anxious and Irritable Thought process: Unremarkable Hallucinations: No Delusions: No Attention: Inattention Perception: Not impaired Orientation: Fully orientated Memory: Intact Insight: Poor Judgement: Poor Neurovegetative Symptoms Sleep: No change Appetitie: No change Interests: No change Energy: No change Libido: Not applicable Substance Use: ETOH dependence Do you use nicotine?: No Have you used substances in the last 7 days?: yes, ETOH Additional Issues: Assaultive/Threatening Behavior: No Medical Concerns: No Client engaged in active self harm w/weapon: No Threatening to run away: No Child reported abuse/neglect: No Voluntarily presenting for services: No Domestic violence is a concern: No Extreme Psychosis or extreme behavior is present: Yes Impression Client is Ailyn Gaffney. Ailyn is a 32 y.o. female. Client has been living with her grandparents in [facility]. Client presented on 11/07 after an intentional overdose of her prescription medication and alcohol. Client would not engage in reassessment at this time. But it appeared to this insurance underwriter sales that Ailyn was very elevated. The client was shaking her foot and making intense eye contact with this insurance underwriter sales. When this insurance underwriter sales initially started this reassessment she provided the client with a not great when the client told the insurance underwriter sales to come up with an answer on how the client was doing. After that initial question the insurance underwriter sales refused to impute anymore information without input from the client. The rest of the reassessment was silent. Plan/Disposition Recommended Disposition: Hospitalization facilities contacted. Plan: At this time no additional referrals for placement have been placed as the Client has been given a bed at . Client gave permission for this insurance underwriter sales to reach out and update the grandparents on what is currently happening. Grandparents are coming to drop of clothes to [facility] to the client for BR.? Person reported agreement to plan: No Facilities contacted if Applicable [facility] Accepted, Accepted/transfer pending. Information Sent to [facility]: Referral Reports/communication Outcome discussed with: ED/Personnel
== END 2022-11-12 20:35 | DRG 918 ==
LOC: ER 21:07 → ICU 22:14 → MS 11-10 09:25
PROVIDERS: Family Medicine; Student in an Organized Health Care Education/Training Program; Admitting Provider Internal Medicine; Emergency Provider Emergency Medicine; PCP Family Medicine; Visit Provider Internal Medicine
DX: T46.5X2A Poisoning by other antihypertensive drugs, intentional self-harm, initial encounter (principal); F50.00 Anorexia nervosa, unspecified; F10.10 Alcohol abuse, uncomplicated; E78.00 Pure hypercholesterolemia, unspecified; Z68.20 Body mass index [BMI] 20.0-20.9, adult; R40.2432 Glasgow coma scale score 3-8, at arrival to emergency department; E03.9 Hypothyroidism, unspecified; F41.1 Generalized anxiety disorder; F60.3 Borderline personality disorder; E55.9 Vitamin D deficiency, unspecified; F32.9 Major depressive disorder, single episode, unspecified; R00.1 Bradycardia, unspecified; F10.129 Alcohol abuse with intoxication, unspecified; G47.00 Insomnia, unspecified; E87.6 Hypokalemia
CPT/HCPCS: 31500; 36415; 51702; 71045; 80048; 80053; 80307; 82550; 82805; 87635; 93005; 96361; 96365; 96375; 99285; J1650; 36600; 70450; 80320; 80329; 81003; 81025; 83735; 84439; 84443; 84484; 85025; 93010; 94003; 99222; 99231; 99232; 99233; 99291; J2560; J3480

== ENCOUNTER 2024-12-31 13:22 | Outpatient (REF) | payer MEDICARE, MEDICAID, SELFPAY ==
[2024-12-31 16:57] LABS: ALT 30 U/L (14-59); AST 33 U/L (15-37); Albumin 4.2 g/dL (3.4-5.0); Alkaline Phosphatase 44 U/L (46-116); BUN 28 mg/dL (7-18); Bilirubin, Total 0.3 mg/dL (0.2-1.0); Calcium 8.7 mg/dL (8.5-10.1); Chloride 104 mmol/L (98-107); Estimated GFR 76.76 (mL/min/1.73m2); Glucose 65 mg/dL (74-106); Sodium 141 mmol/L (136-145); TSH (W/Ref FT4) 1.95 uIU/mL (0.36-3.74); Total Protein 7.2 g/dL (6.4-8.2)
[2025-01-03 10:59] LABS: Tissue Transglutaminase IgA <4.0 CU (<20.0)
[2025-01-03 12:15] LABS: IgA 85 mg/dL (85-499)
== END 2024-12-31 13:23 | disposition home or self-care (01) ==
LOC: NCHCN 13:22
PROVIDERS: PCP Family Medicine; Visit Provider Family Medicine
DX: E03.9 Hypothyroidism, unspecified (principal); R63.4 Abnormal weight loss
CPT/HCPCS: 80053; 82784; 85027; 86364; 84443

== ENCOUNTER 2025-02-02 09:05 | Outpatient (CLI) | payer MEDICARE, SELFPAY ==
[2025-02-02 09:32] LABS: HCT 38.7 % (36.0-46.0); HGB 13.6 g/dL (11.2-15.7); MCH 32.2 pg (27.0-33.0); MCHC 35.1 % (32.0-36.0); MCV 92 fL (80-95); MPV 10.3 fL (8.0-11.0); Platelet Count 141 10^3/uL (130-400); RBC 4.22 10^6/uL (3.93-5.22); RDW 12.4 % (11.7-14.6); RDW-SD 41.5 fL; WBC 4.78 10^3/uL (4.4-10.8)
[2025-02-04 14:43] LABS: Gliadin (Deamidated) Ab, IgG <10.0 U
== END 2025-02-02 09:06 | disposition home or self-care (01) ==
LOC: LBO 09:08
PROVIDERS: PCP Family Medicine; Visit Provider Family Medicine
DX: R63.4 Abnormal weight loss (principal)
CPT/HCPCS: 36415; 83516; 85027; 86364